=== PATIENT | female | born 1945 | race Caucasian/White ===

== ENCOUNTER → 2017-08-15 | Day surgery (SDC) | payer MEDICARE ==
[2017-08-08 15:14] LABS: BASOPHILS # (AUTO) 0.1 (0.0-0.1); BASOPHILS % 1.5 % (0.0-1.0); EOSINOPHILS # (AUTO) 0.3 (0.0-0.4); EOSINOPHILS % 3.2 % (0.0-6.0); HEMATOCRIT 35.6 % (34.2-44.1); HEMOGLOBIN 12.1 g/dL (12.0-16.0); LYMPHOCYTES # (AUTO) 1.7 (1.0-3.2); LYMPHOCYTES % 21.8 % (18.0-39.1); MEAN CORPUSCULAR HEMOGLOBIN 28.4 pg (28-32); MEAN CORPUSCULAR VOLUME 83.6 fL (81-99); MONOCYTES # (AUTO) 0.7 (0.2-0.8); MONOCYTES % 8.7 % (4.4-11.3); NEUTROPHILS % 64.4 % (38.7-80.0); PLATELET COUNT 391 x10e3/uL (140-360); RED BLOOD COUNT 4.26 x10e6/uL (3.6-5.1); RED CELL DISTRIBUTION WIDTH 15.5 % (11.7-14.4)
--- NOTE | 2017-08-08 15:22 | Diagnostic Imaging Report ---
PROCEDURE: Frontal and lateral views of the chest. COMPARISON: None. INDICATIONS: PRE-OPERATIVE CHEST X-RAY FOR CYSTOSCOPY FINDINGS: Lines/tubes: None. Lungs: The lungs are well inflated and clear. There is no evidence of pneumonia or pulmonary edema. Pleura: There is no pleural effusion or pneumothorax. Heart and mediastinum: The heart and the mediastinum are normal. Tortuous aorta with atherosclerotic calcification of the arch Bones: No acute bony abnormality. Fusion hardware noted in the lower cervical and upper thoracic spine IMPRESSION: 1. No acute cardiopulmonary abnormalities. Daniel Miranda M.D. Dictated by: Daniel Miranda M.D. on 08/08/2017 at 15:22 Electronically approved by: Daniel Miranda M.D. on 08/08/2017 at 15:22
[2017-08-08 15:31] LABS: ANION GAP 18.2 mmol/L (8-16); BLOOD UREA NITROGEN 17 mg/dL (7-26); BUN/CREATININE RATIO 21 (6-25); CALCIUM 10.1 mg/dL (8.4-10.2); CARBON DIOXIDE 28 mmol/L (22-29); CHLORIDE 92 mmol/L (98-107); EST GLOMERULAR FILTRATION RATE > 60 ML/MIN (60-); GLUCOSE 88 mg/dL (74-118); POTASSIUM 3.2 mmol/L (3.5-5.1); SODIUM 135 mmol/L (136-145)
[~2017-08-15] MED LIST: ACIDOPHILUS1 EAC3 PO; ACYCLOVIR400 MG PO; ADVAIR 100-501 EACH NS; AMLODIPINE BESY10 MG PO; AMOX TR-K CLV1 EAC2 PO; APRISO0.375 GM PO; ASPIRIN EC81 MG PO; ATORVASTATIN CA20 MG PO; BUDESONIDE EC3 MG PO; CEFTRIAXONE SOD 1 GM VIAL ONE; DEXAMETHASONE SOD PHOS INJ 4 MG/ML VIAL ONE; DIOVAN HCT 1601 EAC1 PO; FENTANYL CITRATE/PF 100MCG/2 ML INJ ONE; FLECTOR1 EACH TOP; HYDROXYCHLOROQ200 MG; LEVALBUTER0.63 MG/3 NEB; LEVOTHYROXINE25 MCG PO; LIDOCAINE HCL 2% LOCAL INJ 5 ML SDV VIAL INJ ONE; MELATONIN10 M1 PO; MIDAZOLAM HCL 2 MG/2 ML VIAL ONE; MORPHINE SULFAT30 M5 PO; MS CONTIN60 MG PO; NORCO 10-325 T1 EACH PO; NORCO 5-325 TA1 EACH PO; NORCO 7.5-3251 EACH PO; NORVASC5 MG PO; OMEPRAZOLE20 MG PO; ONDANSETRON HCL INJ 2 MG/ML VIAL ONE; ORENCIA125 MG/1 M SQ; PANTOPRAZOLE SO40 MG PO; PAROXETINE HCL20 MG PO; PROAIR HFA INH8.5 GM IH; PROMETHAZINE HC25 M1 PO; PROPOFOL IV EMULSION 10 MG/ML 20 ML VIAL ONE; QUESTRAN PACKET4 GM PO; SERTRALINE HCL100 MG PO; SEVOFLURANE INHAL SOLN 250 ML PEN BTL ONE; SIMVASTATIN10 MG PO; SUMATRIPTAN SU100 MG PO; TIZANIDINE HCL4 MG PO; TYLENOL WITH C1 EACH PO; VALIUM10 MG PO
--- OUTSIDE RECORDS SUMMARY | 2017-08-15 10:31 | XMS REPORT | Clinical Summary ---
Author Author [facility] Organization [facility] Address Unknown Phone Unavailable Care Team Providers Care Roofing Contractor Name Role Phone FrancoJuan Manuel PCP Allergies Active Allergy Reactions Severity Noted Date Comments Nitrofurantoin Rash Low 02/16/2016 Monohyd/M-Cryst Current Medications Prescription Sig. Disp. Refills Start End Date Status Date HYDROcodone-acetaminophen Take 1 tablet by mouth Active (NORCO 10-325) 10-325 mg every 6 (six) hours as per tablet needed for moderate pain. DIAZEPAM (VALIUM ORAL) Take by mouth. Active Active Problems No known active problems Family History Medical History Relation Name Comments Heart disease Father Relation Name Status Comments Father Social History Tobacco Use Types Packs/Day Years Used Date Former Smoker Cigarettes 1 Comments: Quit 12 years ago Alcohol Use Drinks/Week oz/Week Comments No Sex Assigned at Date Recorded Not on file Last Filed Vital Signs Not on file Plan of Treatment Health Maintenance Due Date Last Done Comments COLONOSCOPY 1997 MAMMOGRAM 1997 ZOSTER VACCINE 2007 PNEUMOCOCCAL 2012 POLYSACCHARIDE VACCINE AGE 65 AND OVER PNEUMOCOCCAL-13 2012 INFLUENZA VACCINE 01/03/2017 Implants Implanted Type Area Cad Designer Drafter Device Expiration Model / Identifier Date Serial / Lot Kit Nurostmltn Lead Tined 4 Elctrd Cardiac N/A: N/A [employer] 2019 [id number] 28 / Spaced 3mm 28cm - [id number] Pacing NEUROMODULATION / Implanted: 02/16/2016 (Quantity not Leads or [id number] on file) Electrodes or Accessorie s Neurostimulator Imp Interstim Ii Neurosurgi N/A: N/A [employer] [facility] - 04/01/2017 3058 / [id number] [facility] [id number] uriel NEUROLOGICAL [id number] Implanted: 02/16/2016 (Quantity not Implants / on file) [id number] Special Education Coordinator Pt For Sacral Nuromodltn Neurosurgi N/A: N/A [employer] [facility] - 3037 / Interstim Icon - [id number] uriel NEUROLOGICAL / Implanted: 02/16/2016 (Quantity not Implants on file) Results Not on fileafter 08/14/2016 Insurance Payer Benefit Subscriber ID Type Phone Address Plan / Group HUMANA HUMANA xxxxxxxxx HMO HMO/POS/EP O/OPEN ACCESS Home: [address] [place] [id number]
--- OUTSIDE RECORDS SUMMARY | 2017-08-15 10:31 | XMS REPORT ---
Author Author [facility] Address Unknown Phone Unavailable Care Team Providers Care Health Center Manager Name Role Phone HAKEEMROXANE Unavailable Unavailable REYNOLD MAK Unavailable Unavailable SHERIE SIGALA Unavailable Unavailable DOMENICA PHILLIPS Unavailable Unavailable Problems This patient has no known problems. Allergies, Adverse Reactions, Alerts This patient has no known allergies or adverse reactions. Medications This patient has no known medications. Results Test Description Test Time Test Comments Text Results Atomic Results Result Comments CBC WITH MANUAL DIFF *WW* 2016-09-23 06:58:00 WBC (test code=WBC) 9.3 10\S\3/uL 4.5-11.0 RBC (test code=RBC) 3.41 10\S\6/uL 3.80-5.80 HGB (test code=HBG) 9.9 g/dL 12.0-15.5 HCT (test code=HCT) 29.0 % 35.0-44.0 MCV (test code=MCV) 85.0 fL 81.0-99.0 MCH (test code=MCH) 29.0 pg 27.0-31.0 MCHC (test code=MCHC) 34.1 g/dL 32.0-36.0 RDW (test code=RDW) 15.9 % 11.5-14.5 PLT (test code=PLT) 266 10\S\3/uL 130-400 MPV (test code=MPV) 8.9 fL 9.4-12.4 NEUTROP # (test code=NE#) 6.8 10\S\3/uL 1.6-8.0 LYMPH # (test code=LY#) 1.2 10\S\3/uL 1.1-3.5 MONOCYTE # (test code=MO#) 0.7 10\S\3/uL 0.0-1.1 EOSINOPH # (test code=EO#) 0.4 10\S\3/uL 0.0-0.7 BASOPHIL # (test code=BA#) 0.1 10\S\3/uL 0.0-0.3 IG # (test code=IG#) 0.16 10\S\3/uL 0.00-0.06 NRBC # (test code=NRBC#) 0.00 10\S\3/uL 0.00-0.01 NEUTROPH % (test code=NE%) 73.1 % 35.0-73.0 LYMPH % (test code=LY%) 13.4 % 20.0-55.0 MONO % (test code=MO%) 7.2 % 2.5-10.0 EOSINOPH % (test code=EO%) 4.0 % 0.0-5.0 BASOPHIL % (test code=BA%) 0.6 % 0.0-2.0 IG % (test code=IG%) 1.7 % 0.0-0.8 NRBC% (test code=NRBC%) 0.0 % 0.0-0.2 MAN DIFF (test code=HMDIFF) MANUAL DIFFERENTIAL SEG (test code=SEG) 74 % 42-75 BAND (test code=BAND) 3 % 0-8 LYMPH (test code=LYMPH) 14 % 20-51 MONO (test code=MONO) 5 % 3-11 EOS (test code=EOS) 3 % 0-10 BASO (test code=BASO) 1 % 0-2 RBC MORPH (test code=RBCMORN) NORMAL NORMAL PLT EST (test code=PLTEST) ADEQUATE ADEQUATE PLT MORPH (test code=PLTMOR) NORMAL (1.5-3 um) NORMAL COMPREHENSIVE METABOLIC MARIN *WW*2016-09-23 06:29:00* Test Item Value Reference Range Comments GLUCOSE (test code=06D) 106 mg/dL 75-100 SODIUM (test code=01A) 135 mmol/L 136-145 POTASSIUM (test code=01B) 3.5 mmol/L 3.6-5.1 CHLORIDE (test code=04A) 100 mmol/L 98-107 CO2 (test code=02A) 28 mmol/L 22-32 ANION GAP (test code=ANG) 10.5 mmol/L BUN (test code=05D) 7 mg/dL 7-18 CREATININE (test code=03E) 0.7 mg/dL 0.4-1.1 BUN/CREA R (test code=BCR) 10 12-20 CALCIUM (test code=09D) 8.4 mg/dL 8.3-9.5 BILI TOTAL (test code=11A) 0.5 mg/dL 0.2-1.0 PROTEIN (test code=07D) 6.0 g/dL 6.4-8.2 ALBUMIN (test code=08D) 2.6 g/dL 3.5-4.8 GLOBULIN (test code=GLB) 3.4 g/dL 1.5-3.8 ALB/GLOB (test code=AGRR) 0.8 1.0-2.6 ALK PHOS (test code=35A) 75 IU/L 42-121 AST (test code=30A) 79 IU/L <=42 ALT (test code=31A) 19 IU/L <=78 CBC WITH MANUAL DIFF *WW*2016-09-22 07:12:00* Test Item Value Reference Range Comments WBC (test code=WBC) 9.4 10\S\3/uL 4.5-11.0 RBC (test code=RBC) 2.62 10\S\6/uL 3.80-5.80 HGB (test code=HBG) 7.8 g/dL 12.0-15.5 HCT (test code=HCT) 23.7 % 35.0-44.0 MCV (test code=MCV) 90.5 fL 81.0-99.0 MCH (test code=MCH) 29.8 pg 27.0-31.0 MCHC (test code=MCHC) 32.9 g/dL 32.0-36.0 RDW (test code=RDW) 14.5 % 11.5-14.5 PLT (test code=PLT) 245 10\S\3/uL 130-400 MPV (test code=MPV) 8.3 fL 9.4-12.4 NEUTROP # (test code=NE#) 6.1 10\S\3/uL 1.6-8.0 LYMPH # (test code=LY#) 1.8 10\S\3/uL 1.1-3.5 MONOCYTE # (test code=MO#) 0.9 10\S\3/uL 0.0-1.1 EOSINOPH # (test code=EO#) 0.4 10\S\3/uL 0.0-0.7 BASOPHIL # (test code=BA#) 0.1 10\S\3/uL 0.0-0.3 IG # (test code=IG#) 0.10 10\S\3/uL 0.00-0.06 NRBC # (test code=NRBC#) 0.00 10\S\3/uL 0.00-0.01 NEUTROPH % (test code=NE%) 65.2 % 35.0-73.0 LYMPH % (test code=LY%) 19.1 % 20.0-55.0 MONO % (test code=MO%) 9.8 % 2.5-10.0 EOSINOPH % (test code=EO%) 3.9 % 0.0-5.0 BASOPHIL % (test code=BA%) 0.9 % 0.0-2.0 IG % (test code=IG%) 1.1 % 0.0-0.8 NRBC% (test code=NRBC%) 0.0 % 0.0-0.2 MAN DIFF (test code=HMDIFF) MANUAL DIFFERENTIAL SEG (test code=SEG) 68 % 42-75 BAND (test code=BAND) 2 % 0-8 LYMPH (test code=LYMPH) 15 % 20-51 MONO (test code=MONO) 11 % 3-11 EOS (test code=EOS) 3 % 0-10 BASO (test code=BASO) 1 % 0-2 RBC MORPH (test code=RBCMORN) NORMAL NORMAL PLT EST (test code=PLTEST) ADEQUATE ADEQUATE PLT MORPH (test code=PLTMOR) NORMAL (1.5-3 um) NORMAL COMPREHENSIVE METABOLIC MARIN *WW*2016-09-22 07:09:00* Test Item Value Reference Range Comments GLUCOSE (test code=06D) 120 mg/dL 75-100 SODIUM (test code=01A) 133 mmol/L 136-145 POTASSIUM (test code=01B) 2.7 mmol/L 3.6-5.1 CHLORIDE (test code=04A) 98 mmol/L 98-107 CO2 (test code=02A) 27 mmol/L 22-32 ANION GAP (test code=ANG) 10.7 mmol/L BUN (test code=05D) 7 mg/dL 7-18 CREATININE (test code=03E) 0.6 mg/dL 0.4-1.1 BUN/CREA R (test code=BCR) 12 12-20 CALCIUM (test code=09D) 8.3 mg/dL 8.3-9.5 BILI TOTAL (test code=11A) 0.4 mg/dL 0.2-1.0 PROTEIN (test code=07D) 5.6 g/dL 6.4-8.2 ALBUMIN (test code=08D) 2.5 g/dL 3.5-4.8 GLOBULIN (test code=GLB) 3.1 g/dL 1.5-3.8 ALB/GLOB (test code=AGRR) 0.8 1.0-2.6 ALK PHOS (test code=35A) 68 IU/L 42-121 AST (test code=30A) 85 IU/L <=42 ALT (test code=31A) 16 IU/L <=78 BASIC METABOLIC PANEL 2016-09-21 05:43:00* Test Item Value Reference Range Comments GLUCOSE (test code=06D) 110 mg/dL 75-100 SODIUM (test code=01A) 133 mmol/L 136-145 POTASSIUM (test code=01B) 3.7 mmol/L 3.6-5.1 CHLORIDE (test code=04A) 96 mmol/L 98-107 CO2 (test code=02A) 29 mmol/L 22-32 ANION GAP (test code=ANG) 11.7 mmol/L BUN (test code=05D) 12 mg/dL 7-18 CREATININE (test code=03E) 1.0 mg/dL 0.4-1.1 BUN/CREA R (test code=BCR) 12 12-20 CALCIUM (test code=09D) 8.2 mg/dL 8.3-9.5 CBC (INCLUDES AUTOMATED DIFFERENTIAL)*[id number] 05:17:00* Test Item Value Reference Range Comments WBC (test code=WBC) 6.2 10\S\3/uL 4.5-11.0 RBC (test code=RBC) 2.91 10\S\6/uL 3.80-5.80 HGB (test code=HBG) 8.7 g/dL 12.0-15.5 HCT (test code=HCT) 26.4 % 35.0-44.0 MCV (test code=MCV) 90.7 fL 81.0-99.0 MCH (test code=MCH) 29.9 pg 27.0-31.0 MCHC (test code=MCHC) 33.0 g/dL 32.0-36.0 RDW (test code=RDW) 15.0 % 11.5-14.5 PLT (test code=PLT) 206 10\S\3/uL 130-400 MPV (test code=MPV) 9.1 fL 9.4-12.4 NEUTROP # (test code=NE#) 4.2 10\S\3/uL 1.6-8.0 LYMPH # (test code=LY#) 1.2 10\S\3/uL 1.1-3.5 MONOCYTE # (test code=MO#) 0.6 10\S\3/uL 0.0-1.1 EOSINOPH # (test code=EO#) 0.0 10\S\3/uL 0.0-0.7 BASOPHIL # (test code=BA#) 0.1 10\S\3/uL 0.0-0.3 IG # (test code=IG#) 0.06 10\S\3/uL 0.00-0.06 NRBC # (test code=NRBC#) 0.00 10\S\3/uL 0.00-0.01 NEUTROPH % (test code=NE%) 67.6 % 35.0-73.0 LYMPH % (test code=LY%) 19.8 % 20.0-55.0 MONO % (test code=MO%) 10.0 % 2.5-10.0 EOSINOPH % (test code=EO%) 0.5 % 0.0-5.0 BASOPHIL % (test code=BA%) 1.1 % 0.0-2.0 IG % (test code=IG%) 1.0 % 0.0-0.8 NRBC% (test code=NRBC%) 0.0 % 0.0-0.2 MANDIFF (test code=WMDIFF) NO NO RBC MORPH (test code=WRBCMOR) NORMAL C-ARM>1HR W IMAGES2016-09-20 13:46:01FluoroscopyLocation Code: [id number] HISTORY: Achilles tendon pathologyComments: Fluoroscopy was provided during Achilles tendon lengthening.Approximately fluoroscopy time was 1 minute 59 seconds.IMPRESSION: Fluoroscopy services provided. Please see operative report for fulldetails.BASIC METABOLIC PANEL 2016-09-20 07:33:00* Test Item Value Reference Range Comments GLUCOSE (test code=06D) 86 mg/dL 75-100 SODIUM (test code=01A) 136 mmol/L 136-145 POTASSIUM (test code=01B) 3.5 mmol/L 3.6-5.1 CHLORIDE (test code=04A) 97 mmol/L 98-107 CO2 (test code=02A) 32 mmol/L 22-32 ANION GAP (test code=ANG) 10.5 mmol/L BUN (test code=05D) 19 mg/dL 7-18 CREATININE (test code=03E) 0.9 mg/dL 0.4-1.1 BUN/CREA R (test code=BCR) 21 12-20 CALCIUM (test code=09D) 9.5 mg/dL 8.3-9.5 CHEST 2 VIEWS [place] [address] Patient Name: CLARI WALTON MR #: [id number] : 1945 Age/Sex: 72/F Req #: [id number] Adm Physician: Ordered by: ROXANE PALACIO MD Report #: [id number] Location: OR Room/Bed: Procedure: [id number] DX/CHEST 2 VIEWS Exam Date: 03/06/18 Exam Time: 1448 REPORT STATUS: Signed PROCEDURE: Frontal and lateral views of the chest. COMPARISON: None. INDICATIONS: PRE-OPERATIVE CHEST X- RAY FOR CYSTOSCOPY FINDINGS: Lines/tubes: None. Lungs: The lungs are well inflated and clear. There is no evidence of pneumonia or pulmonary edema. Pleura: There is no pleural effusion or pneumothorax. Heart and mediastinum: The heart and the mediastinum are normal. Tortuous aorta with atherosclerotic calcification of the arch Bones: No acute bony abnormality. Fusion hardware noted in the lower cervical and upper thoracic spine IMPRESSION: 1. No acute cardiopulmonary abnormalities. River Miranda M.D. Dictated by: River Miranda M.D. on 08/08/2017 at 15:22 Electronically approved by: River Miranda M.D. on 08/08/2017 at 15:22 Dictated By: RIVER MIRANDA MD 152 Transcribed By: AMANDA on 08/08/17 1522 COPY TO: ROXANE PALACIO MD US PELVIC (NON OB) WORKMAN OR F/U [place] [address] Patient Name: CLARI WALTON MR #: [id number] : 1945 Age/Sex: 71/F Req #: [id number] Adm Physician: REYNOLD MAK MD Ordered by: REYNOLD MAK MD Report #: [id number] Location: MED/SURG Room/Bed: Formerly named [facility] Procedure: [id number] US/US PELVIC (NON OB) WORKMAN OR F/U Exam Date: Exam Time: REPORT STATUS: Signed PROCEDURE: US PELVIC (NON OB) WORKMAN OR F/U COMPARISON: None. INDICATIONS: ANEMIA, UTI TECHNIQUE: Grayscale transverse and sagittal transabdominal images were obtained of the pelvis. FINDINGS: UTERUS: Status post hysterectomy. RIGHT OVARY: Nonvisualized. LEFT OVARY: Nonvisualized. A Jarvis catheter is noted within the urinary bladder. The right and left ureteral jets are identified. The urinary bladder decompressed appropriately after the catheter was unclamped. CONCLUSION: Status post hysterectomy. Unremarkable sonographic appearance of the urinary bladder. Dictated by: Emily Guerra M.D. on 2016 at 10:40 Electronically approved by: Emily Guerra M.D. on 2016 at 10:40 Dictated By: EMILY GUERRA MD 104 Transcribed By: AMANDA on 04/13/17 104 COPY TO: REYNOLD MAK MD HAND BILATERAL 3 OR MORE VIEWS [place] [address] Patient Name: CLARI WALTON MR #: [id number] : 1945 Age/Sex: 71/F Req #: [id number] Adm Physician: REYNOLD MAK MD Ordered by: REYNOLD MAK MD Report #: [id number] Location: MED/SURG Room/Bed: Formerly named [facility] Procedure: [id number] DX/HAND BILATERAL 3 OR MORE VIEWS Exam Date: Exam Time: REPORT STATUS: Signed Bilateral hand 3 - views HISTORY : Arthralgia. COMPARISON: None FINDINGS: No displaced fracture. There is mild subluxation of the bilateral first metacarpophalangeal joints with mild degenerative osteoarthrosis. IMPRESSION: Mild degenerative subluxation of the first metacarpophalangeal joint bilaterally. Signed by: Dr. Shaye Mi M.D. on 2016 5:59 PM Dictated By: ANAHI MI MD, MD 58 Transcribed By: ARNOLD on 04/10/171758 COPY TO: REYNOLD MAK MD SHOULDER COMPLETE BILATERAL [place] [address] Patient Name: CLARI WALTON MR #: [id number] : 1945 Age/Sex: 71/F Req #: [id number] Adm Physician: REYNOLD MAK MD Ordered by: REYNOLD MAK MD Report #: [id number] Location: MED/SURG Room/Bed: Formerly named [facility] Procedure: [id number] DX/SHOULDER COMPLETE BILATERAL Exam Date: 04/10/17 Exam Time: 1650 REPORT STATUS: Signed SHOULDER COMPLETE BILATERAL - 3 views HISTORY: Pain. COMPARISON: None available. FINDINGS: Bones: No acute displaced fracture. Osseous alignment is within normal limits. Joints: Mild DJD of the left AC joint. Degenerative changes of the right glenohumeral joint with osteophyte in the inferior aspect of the humeral head. Lower cervical fusion hardware partially visualized. Soft tissues: The soft tissues appear unremarkable. 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 Signed by: Dr. Shaye Mi M.D. on 04/10/2017 6:07 PM Dictated By: ANAHI MI MD, MD 06 Transcribed By : ARNOLD on 04/10/171806 COPY TO: REYNOLD MAK MD CT ABDOMEN/ PELVIS W [place] [address] Patient Name: CLARI WALTON MR #: [id number] : 1945 Age/Sex: 71/F Req #: [id number] Adm Physician: Ordered by: SHERIE SIGALA MD Report #: [id number] Location: ER Room/Bed: Procedure: [id number] CT/CT ABDOMEN/PELVIS W Exam Date: 03/30/17 Exam Time : 2157 REPORT STATUS: Signed EXAM: CT ABDOMEN AND PELVIS with IV CONTRAST DATE: 03/30/2017 8:29 PM Time stamp on Exam: 2151 hours INDICATION : Left upper quadrant pain COMPARISON: None TECHNIQUE: The abdomen and pelvis were scanned using a multidetector helical scanner. Coronal and sagittal reformations were obtained. Routine protocol performed. IV Contrast : 100 cc Isovue-370 Oral Contrast: Gastrografin CTDIvol has been reviewed. It is below the limits set by the Radiation Protocol Committee (RPC). FINDINGS: LOWER THORAX: No consolidations LIVER: Subcentimeter hypodensity near the dome that is too small to characterize, likely a cyst. BILIARY: The gallbladder is unremarkable. No ductal dilation. SPLEEN: No masses PANCREAS: No masses ADRENALS: No nodules KIDNEYS: Symmetric perfusion. No enhancing masses. No hydronephrosis. GI TRACT: No distention , wall thickening or evidence of obstruction. Nonspecific debris in the stomach, possibly a recently ingested meal. VESSELS: Mild atherosclerotic changes of the abdominal aorta without aneurysm. The portal vein is patent. PERITONEUM/RETROPERITONEUM: No free air or fluid LYMPH NODES: No lymphadenopathy REPRODUCTIVE ORGANS: The uterus is not visualized. The left ovary is not visualized. Right adnexal 2.4 cm simple cyst. BLADDER: Unremarkable SOFT TISSUES: Unremarkable BONES: No suspicious bone lesions. IMPRESSION: No CT findings to explain patient's left upper quadrant pain. Signed by: Dr. Regine Roque M.D. on 03/30/2017 10:37 PM Dictated By: REGINE ROQUE MD 36 Transcribed By: ARNOLD on 03/30/172236 COPY TO: SHERIE SIGALA MD
--- NOTE | 2017-08-17 10:32 | Operative Report ---
DATE OF PROCEDURE: August 15, 2017 PREOPERATIVE DIAGNOSIS: Recurrent urinary tract infections. POSTOPERATIVE DIAGNOSIS: Recurrent urinary tract infections. OPERATIVE PROCEDURE PERFORMED: Cystoscopy. ANESTHESIA: General anesthesia. ESTIMATED BLOOD LOSS: Minimal. INDICATIONS: Ms. Tesha Mariano is a 72-year-old woman with a history of culture-proven recurrent urinary tract infections. She has recently completed a course of antibiotics, and now presents for cystoscopy. PROCEDURE IN DETAIL: The patient was brought into the operating room and placed in the supine position. After administration of general anesthesia, was placed in the dorsal lithotomy position, and prepped and draped in the usual sterile fashion. Cystourethroscopy was performed using a 21-[place] cystoscope. The anterior and posterior urethra were noted to be normal. There were no diverticula or significant erythema noted. The bladder was entered without difficulty. Upon entrance into the bladder, there was some resolving cystitis cystica presumably from her recent urinary tract infection. The ureteral orifices were in the normal anatomic position, and produced clear efflux. There was grade 1 trabeculations noted throughout without any obvious diverticula or cellules. Her bladder capacity was greater than 500 mL. There were no mucosal lesions identified. The bladder was then drained in its entirety, and the cystoscope and sheath were removed. The patient was returned to the supine position, and anesthesia was reversed. She was transferred to her bed and taken to the postanesthesia care unit in good condition. Of note, the needle and instrument counts were correct at the conclusion of the case. Job#: [id number]
== END | disposition home or self-care (01) ==
LOC: OR 10:29
PROVIDERS: ATTEND Urology
DX: N30.80 Other cystitis without hematuria (principal); N32.89 Other specified disorders of bladder; I10 Essential (primary) hypertension; J45.909 Unspecified asthma, uncomplicated; Z01.810 Encounter for preprocedural cardiovascular examination; Z01.812 Encounter for preprocedural laboratory examination; Z01.818 Encounter for other preprocedural examination; Z68.30 Body mass index [BMI] 30.0-30.9, adult
CPT/HCPCS: 36415; 52000; 71046; 80048; 85025; 93005; J0696; J1100; J2001; J2250; J2405

== ENCOUNTER → 2017-11-27 | Outpatient (CLI) | payer MEDICARE ==
[~2017-11-27] MED LIST changes: +ALBUTEROL/IPRATROPIUM 3 ML NEB ONE; -CEFTRIAXONE SOD 1 GM VIAL ONE; -DEXAMETHASONE SOD PHOS INJ 4 MG/ML VIAL ONE; -FENTANYL CITRATE/PF 100MCG/2 ML INJ ONE; -LIDOCAINE HCL 2% LOCAL INJ 5 ML SDV VIAL INJ ONE; -MIDAZOLAM HCL 2 MG/2 ML VIAL ONE; -ONDANSETRON HCL INJ 2 MG/ML VIAL ONE; -PROPOFOL IV EMULSION 10 MG/ML 20 ML VIAL ONE; -SEVOFLURANE INHAL SOLN 250 ML PEN BTL ONE
== END ==
LOC: RESP 14:06
PROVIDERS: ATTEND Internal Medicine Critical Care Medicine
DX: R06.02 Shortness of breath (principal); R91.1 Solitary pulmonary nodule; J45.909 Unspecified asthma, uncomplicated; J30.9 Allergic rhinitis, unspecified; M06.9 Rheumatoid arthritis, unspecified
CPT/HCPCS: 94060; 94727; 94729

== ENCOUNTER → 2018-09-17 | Day surgery (SDC) | payer MEDICARE ==
[2018-09-06 18:29] LABS: BASOPHILS # (AUTO) 0.1 (0.0-0.1); BASOPHILS % 0.6 % (0.0-1.0); EOSINOPHILS % 0.3 % (0.0-6.0); HEMATOCRIT 40.8 % (34.2-44.1); LYMPHOCYTES # (AUTO) 2.3 (1.0-3.2); LYMPHOCYTES % 19.3 % (18.0-39.1); MEAN CORPUSCULAR HGB CONC 34.3 g/dL (31-35); MEAN CORPUSCULAR VOLUME 90.3 fL (81-99); MONOCYTES # (AUTO) 1.2 (0.2-0.8); MONOCYTES % 9.6 % (4.4-11.3); NEUTROPHILS # (AUTO) 8.3 (2.1-6.9); NEUTROPHILS % 68.9 % (38.7-80.0); PLATELET COUNT 444 x10e3/uL (140-360); RED BLOOD COUNT 4.52 x10e6/uL (3.6-5.1); RED CELL DISTRIBUTION WIDTH 13.2 % (11.7-14.4)
[~2018-09-17] MED LIST changes: -ALBUTEROL/IPRATROPIUM 3 ML NEB ONE; +BIOTIN2500 MCG PO; +CALCIUM PO; +DICYCLOMINE HCL20 MG PO; +FENTANYL CITRATE/PF 100MCG/2 ML INJ ONE; +HYDROCHLOROTHIA25 MG PO; +HYOSCYAMINE SULFATE 0.5 MG/ML INJ ONE; +IMITREX25 MG PO; +KETAMINE HCL INJ 50 MG/ML 10 ML VIAL ONE; +LOSARTAN POTASS25 MG PO; +MELOXICAM7.5 MG PO; +MIDAZOLAM HCL 2 MG/2 ML VIAL ONE; +MOMETASONE INH; +PROAIR HFA INH8.5 GM INH; +PROPOFOL IV EMULSION 10 MG/ML 50 ML VIAL ONE; +VITAMIN C1000 MG PO; +VITAMIN D31000 UNIT PEG; +[UNRECOGNIZED DRUG - OTHER] PO; +[UNRECOGNIZED DRUG - OTHER] TOP
--- OUTSIDE RECORDS SUMMARY | 2018-09-17 11:15 | XMS REPORT | Clinical Summary ---
Author Author [facility] Address Unknown Phone Unavailable Care Team Providers Care Whipped Topping Finisher Name Role Phone Parmjit Franco A PCP Allergies Comments Active Allergy Reactions Severity Noted Date Amoxicillin-Pot Itching 12/15/2017 Clavulanate Latex Rash Low 09/25/2017 Nitrofurantoin Rash Low 02/16/2016 Monohyd/M-Cryst Medications End Date Status Medication Sig Dispensed Refills Start Date Active ZANAFLEX 4 mg tablet Take 4 mg by 0 mouth every 6 8 (six) hours as needed. Active SYNTHROID 50 mcg tablet 50 mg. 0 8 Active FLONASE ALLERGY RELIEF 50 0 mcg/actuation nasal spray 8 Active sulfamethoxazole-trimetho 0 prim (BACTRIM DS) 800-160 8 mg per tablet Active PAXIL 10 mg tablet Take 10 mg by 0 mouth daily. 8 Active LIPITOR 20 mg tablet 0 8 Active diclofenac (VOLTAREN) 1 % 0 gel 8 Active diazePAM (VALIUM) 10 MG nightly as 0 tablet needed. 8 Active acyclovir (ZOVIRAX) 400 Take 400 mg 0 MG tablet by mouth daily. Active amLODIPine (NORVASC) 5 mg Take 5 mg by 0 tablet mouth daily. Active pantoprazole (PROTONIX) Take 40 mg by 0 40 MG EC tablet mouth daily. Active albuterol (PROAIR Inhale 2 0 HFA,PROVENTIL puffs every 6 HFA,VENTOLIN HFA) 90 (six) hours mcg/actuation inhaler as needed for wheezing. Active promethazine (PHENERGAN) Take 25 mg by 0 25 MG tablet mouth every 6 (six) hours as needed for nausea or vomiting. Active hydroxychloroquine Take 200 mg 0 (PLAQUENIL) 200 mg tablet by mouth 2 (two) times a day. Active calcium carbonate Take 600 mg 0 (CALCIUM 600) 600 mg by mouth 2 calcium (1,500 mg) tablet (two) times a day with meals. Active ascorbic acid, vitamin C, Take 1,000 mg 0 (vitamin C) 1000 MG by mouth tablet daily. Active cholecalciferol, vitamin Take 2,000 0 D3, (VITAMIN D3) 2,000 Units by unit capsule capsule mouth daily. Active multivitamin with Take 1 tablet 0 minerals tablet by mouth daily. Active valsartan-hydrochlorothia Take 1 tablet 0 zide (DIOVAN-HCT) 160-25 by mouth mg per tablet daily. Active SUMAtriptan (IMITREX) 50 Take 100 mg 0 MG tablet by mouth as needed for migraine. May repeat in 2 hours if unresolved. Do not exceed 200 mg in 24 hours. Active biotin 10,000 mcg capsule Take by mouth 0 daily. 12/15/2017 Discontinued valsartan (DIOVAN) 160 MG Take 160 mg 0 tablet by mouth daily. 12/28/2017 Discontinued HYDROcodone-acetaminophen Take 1 tablet 0 (NORCO) 5-325 mg per by mouth tablet every 6 (six) hours as needed for moderate pain. 12/15/2017 Discontinued vit B comp Take 1 tablet 0 no.4-vkhqo-G-biotin by mouth (NEPHRO-LAURA RX) 1-60-300 daily. mg-mg-mcg tablet 01/01/2018 HYDROcodone-acetaminophen Take 1 tablet 60 tablet 0 (NORCO) 10-325 mg per by mouth 8 tablet every 6 (six) hours as needed for moderate pain for up to 60 doses. Max Daily Amount: 4 tablets 01/27/2018 aspirin 81 mg chewable Chew 1 tablet 60 tablet 0 tablet (81 mg total) 8 2 (two) times a day for 30 days. 02/15/2018 HYDROcodone-acetaminophen Earliest Fill 60 tablet 0 (NORCO) 5-325 mg per Date: 8 tablet 02/01/18. 1-2 tabs by mouth every 4-6 hours as needed for pain Active Problems Problem Noted Date OA (osteoarthritis) of knee 12/26/2017 Encounters Care Team Description Date Type Specialty Ismael Lu MD History of total right knee replacement (Primary Dx); Primary osteoarthritis of right knee 02/19/2018 Office Visit Orthopedic Surgery MichaelBettina larrythia History of right knee joint replacement (Primary Dx) 02/19/2018 Orders Only Orthopedic Surgery Cheko Sagastume PA-C 02/01/2018 Orders Only Orthopedic Surgery Cheko Sagastume PA-C History of total right knee replacement (Primary Dx) 01/11/2018 Office Visit Orthopedic Surgery Rui Avalos MD 12/26/2017 Anesthesia Orthopedic Surgery Event Ismael Lu MD ARTHROPLASTY, KNEE, TOTAL 12/26/2017 Surgery Orthopedic Surgery Ismael Lu MD Arthritis of knee, right 12/26/2017 Hospital Orthopedic Surgery - Encounter 12/28/2017 Ismael Lu MD Preop examination (Primary Dx) 12/15/2017 Pre-Admit Pre-Admission Testing Testing Appointment Yanci Michael 10/16/2017 Orders Only Orthopedic Surgery Cheko Sagastume PA-C Primary osteoarthritis of right knee (Primary Dx) 10/02/2017 Office Visit Orthopedic Surgery Ismael Lu MD 09/25/2017 Pre-Admit Pre-Admission Testing Testing Appointment after 09/16/2017 Family History Medical History Relation Name Comments Heart disease Father Hypertension Mother Stroke Mother Relation Name Status Comments Father Mother Social History Date Tobacco Use Types Packs/Day Years Used Quit: 12/15/2004 Former Smoker Cigarettes 1 Smokeless Tobacco: Never Used Comments: Quit 12 years ago Alcohol Use Drinks/Week oz/Week Comments No Sex Assigned at Date Recorded Not on file Industry Job Start Date Occupation Not on file Not on file Not on file Travel End Travel History Travel Start No recent travel history available. Last Filed Vital Signs Time Taken Vital Sign Reading 12/28/2017 6:59 AM CDT Blood Pressure 120/55 12/28/2017 6:59 AM CDT Pulse 60 12/28/2017 6:59 AM CDT Temperature 35.9 C (96.6 F) 12/28/2017 6:59 AM CDT Respiratory Rate 17 12/28/2017 6:59 AM CDT Oxygen Saturation 100% - Inhaled Oxygen - Concentration 12/26/2017 9:34 AM CDT Weight 88.5 kg (195 lb 3.2 oz) 12/26/2017 9:34 AM CDT Height 144.8 cm (4' 9") 12/26/2017 9:34 AM CDT Body Mass Index 42.24 Plan of Treatment Health Maintenance Due Date Last Done Comments BREAST CANCER SCREENING 1997 COLON CANCER SCREENING 1997 SHINGLES VACCINES (#1) 1997 65+ PNEUMOCOCCAL VACCINE 2012 (1 of 2 - PCV13) PNEUMOCOCCAL 2012 POLYSACCHARIDE VACCINE AGE 65 AND OVER INFLUENZA VACCINE 01/03/2019 Implants Device Identifier Shelf Expiration Date Model / Serial / Lot Implanted Type Area Manufactur er 12/25/2019 [id number] / / [id number] Kit Nurostmltn Lead Tined 4 Elctrd Cardiac N/A: N/A [employer] Spaced 3mm 28cm - [id number] Pacing NEUROMODUL Implanted: 02/16/2016 (Quantity not Leads or ATION on file) Electrodes or Accessorie s 08/24/2027 [id number] / / [id number] Vanguard Cr Por Fem-Rt 57.5 - IPM Right: Knee BIOMET, [id number] IMPLANT INC Implanted: 12/26/2017 (Quantity not DEVICES on file) 08/09/2027 [id number] / / [id number] Biomet Regenx Sarah Tib Tray 67mm - IPM Right: Knee BIOMET, [id number] [employer]PL[employer] Implanted: 12/26/2017 (Quantity not DEVICES on file) 10/27/2022 EP [id number] / / [id number] E-Poly Vanguard Cr Tib Brng 63/67 X IPM Right: Knee BIOMET, 12 - [id number] IMPLANT INC Implanted: 12/26/2017 (Quantity not DEVICES on file) 12/09/2027 [id number] / / [id number] Stem Tib Prim Finned 40mm Ascent Knee Joint Right: Knee BIOMET INC Maxim - [id number] Implants Implanted: 12/26/2017 (Quantity not on file) 04/01/2017 [id number] / [id number] / [id number] Neurostimulator Imp Interstim Ii Neurosurgi N/A: N/A [employer] [id number] Nrechrgbl - [id number] [facility] - Implanted: 02/16/2016 (Quantity not Implants NEUROLOGIC on file) [place] 3037 / / Golf Coach Pt For Sacral Nuromodltn Neurosurgi N/A: N/A [employer] Interstim Icon - [id number] [employer] [place] - Implanted: 02/16/2016 (Quantity not Implants NEUROLOGIC on file) [place] Procedures Comments Procedure Name Priority Date/Time Associated Diagnosis XR KNEE 3 VW RIGHT Routine 02/19/2018 History of right knee 3:08 PM CDT joint replacement ZZESTIMATED GFR Routine 12/28/2017 4:00 AM CDT BASIC METABOLIC PANEL Routine 12/28/2017 4:00 AM CDT HC COMPLETE BLD COUNT Routine 12/28/2017 W/AUTO DIFF 4:00 AM CDT URINALYSIS SCREEN AND Routine 12/27/2017 MICROSCOPY, WITH REFLEX 6:00 AM CDT TO CULTURE URINE CULTURE Routine 12/27/2017 6:00 AM CDT CBC WITH PLATELET AND Routine 12/27/2017 DIFFERENTIAL 4:30 AM CDT ZZESTIMATED GFR Routine 12/27/2017 4:00 AM CDT T4, FREE Routine 12/27/2017 4:00 AM CDT THYROID STIMULATING Routine 12/27/2017 HORMONE 4:00 AM CDT PHOSPHORUS LEVEL Routine 12/27/2017 4:00 AM CDT IONIZED CALCIUM Routine 12/27/2017 4:00 AM CDT MAGNESIUM LEVEL Routine 12/27/2017 4:00 AM CDT BASIC METABOLIC PANEL Routine 12/27/2017 4:00 AM CDT ECG PRE/POST OP Routine 12/26/2017 9:33 PM CDT XR KNEE 1 OR 2 VW RIGHT Routine 12/26/2017 4:15 PM CDT POC GLUCOSE Routine 12/26/2017 3:52 PM CDT SURGICAL PATHOLOGY Routine 12/26/2017 REQUEST 3:26 PM CDT ANESTHESIA INTUBATION Routine 12/26/2017 3:09 PM CDT Procedure Note - Taryn Gonzalez Jr., CRNA - 12/26/2017 3:09 PM CDT Airway Date/Time: 12/26/2017 2:08 PM Performed by: TARYN GONZALEZ JR Authorized by: RUI AVALOS Location: [place] Difficult Airway: No Anesthesio logist: RUI AVALOS Resident/C RNA/AA: TARYN GONZALEZ JR Performed by: resident/C RNA/AA Preoxygena laisha with 100% O2: Yes C-spine Precaution s Maintained Throughout : Yes Mask Ventilatio n: Easy mask Final Airway Type: Supraglott ic airway Final LMA: Classic LMA Size: 4 Number of Attempts at Approach: 1 ARTHROPLASTY, KNEE, TOTAL 12/26/2017 Arthritis of knee, right 2:00 PM CDT Case Notes @2309 VIA EMAIL/BEHZAD NA R/S FROM 01/16 TO 12/26-TW Special Needs EXTENDED RECOVERY NEEDED BIOMET GLEN ANESTHESIA SPINAL BLOCK Routine 12/26/2017 1:26 PM CDT Procedure Note - Rui Avalos MD - 12/26/2017 1:26 PM CDT Spinal Block Performed by: RUI AVALOS Authorized by: RUI AVALOS Notes: ATTEMPTED SPINAL AT L3-4 AND L2-3, BUT UNSUCCESSF UL DUE TO LUMBAR FUSION POC GLUCOSE Routine 12/26/2017 9:32 AM CDT ZZESTIMATED GFR Routine 12/15/2017 2:39 PM CDT URINALYSIS SCREEN AND Routine 12/15/2017 Preop examination MICROSCOPY, WITH REFLEX 2:39 PM CDT TO CULTURE CBC HEMOGRAM Routine 12/15/2017 Preop examination 2:39 PM CDT HEMOGLOBIN A1C Routine 12/15/2017 Preop examination 2:39 PM CDT BASIC METABOLIC PANEL Routine 12/15/2017 Preop examination 2:39 PM CDT GRAM STAIN Routine 12/15/2017 2:39 PM CDT URINE CULTURE Routine 12/15/2017 2:39 PM CDT after 09/16/2017 Results * XR Knee 3 Vw Right (02/19/2018 3:08 PM CDT) Narrative Performed At [facility] Well fixed and aligned TKR right Otherwise, No gi or soft tissue abnormality Performing Organization Address [facility] Phone Number [facility] [address] [place] [address] * Estimated GFR (12/28/2017 4:00 AM CDT) Only the most recent of 3 results within the time period is included. GFR Non Af Amer 83 mL/min/1.[address] [facility] DEPARTMENT OF PATHOLOGY AND GENOMIC MEDICINE GFR Af Amer >90 mL/min/1.[address] [facility] OF Comment: PATHOLOGY AND Chronic kidney disease: <60 GENOMIC MEDICINE mL/min/1.73m2 Kidney failure: <15 mL/min/1.73m2 The estimated GFR is calculated from the IDMS-traceable Modification of Diet in Renal Disease Equation. The accuracy of the calculation is poor when the creatinine is normal. Calculated values >90 mL/min/1.73m2 are not reported. This equation has not been validated in children (<18 years), women, the elderly (>70 years), or ethnic groups other than Caucasians and Americans. Specimen Plasma specimen Performing Organization Address City/[facility] Phone Number [facility] DEPARTMENT OF [address] [place] [address] PATHOLOGY AND GENOMIC MEDICINE * CBC with platelet and differential (12/28/2017 4:00 AM CDT) Only the most recent of 2 results within the time period is included. WBC 10.24 4.50 - 11.00 k/uL [facility] DEPARTMENT OF PATHOLOGY AND GENOMIC MEDICINE RBC 2.96 (L) 4.20 - 5.50 m/uL [facility] DEPARTMENT OF PATHOLOGY AND GENOMIC MEDICINE HGB 8.9 (L) 12.0 - 16.0 g/dL [facility] DEPARTMENT OF PATHOLOGY AND GENOMIC MEDICINE HCT 26.7 (L) 37.0 - 47.0 % [facility] DEPARTMENT OF PATHOLOGY AND GENOMIC MEDICINE MCV 90.2 82.0 - 100.[address] [facility] DEPARTMENT OF PATHOLOGY AND GENOMIC MEDICINE MCH 30.1 27.0 - 34.[address] [facility] DEPARTMENT OF PATHOLOGY AND GENOMIC MEDICINE MCHC 33.3 31.0 - 37.0 g/dL [facility] DEPARTMENT OF PATHOLOGY AND GENOMIC MEDICINE RDW - SD 45.1 37.0 - 55.[address] [facility] DEPARTMENT OF PATHOLOGY AND GENOMIC MEDICINE MPV 8.5 (L) 8.8 - 13.[address] [facility] DEPARTMENT OF PATHOLOGY AND GENOMIC MEDICINE Platelet count 310 150 - 400 k/uL [facility] DEPARTMENT OF PATHOLOGY AND GENOMIC MEDICINE Nucleated RBC 0.00 /[address] [facility] DEPARTMENT OF PATHOLOGY AND GENOMIC MEDICINE Neutrophils 64.3 39.0 - 69.0 % [facility] DEPARTMENT OF PATHOLOGY AND GENOMIC MEDICINE Lymphocytes 20.1 (L) 25.0 - 45.0 % [facility] DEPARTMENT OF PATHOLOGY AND GENOMIC MEDICINE Monocytes 12.7 (H) 0.0 - 10.0 % [facility] DEPARTMENT OF PATHOLOGY AND GENOMIC MEDICINE Eosinophils 1.4 0.0 - 5.0 % [facility] DEPARTMENT OF PATHOLOGY AND GENOMIC MEDICINE Basophils 0.7 0.0 - 1.0 % [facility] DEPARTMENT OF PATHOLOGY AND GENOMIC MEDICINE Immature granulocytes 0.8Comment: "Immature 0.0 - 1.0 % [facility] DE[facility]MENT OF granulocytes" (promyelocytes, PATHOLOGY AND myelocytes, metamyelocytes) [facility] Specimen Blood Performing Organization Address City/State/Zipcode Phone Number [facility] DEPARTMENT OF [address] [place] [address] PATHOLOGY AND GENOMIC MEDICINE * Basic metabolic panel (12/28/2017 4:00 AM CDT) Only the most recent of 3 results within the time period is included. Sodium 128 (L) 135 - 148 mEq/L [facility] DEPARTMENT OF PATHOLOGY AND GENOMIC MEDICINE Potassium 4.0 3.5 - 5.0 mEq/L [facility] DEPARTMENT OF PATHOLOGY AND GENOMIC MEDICINE Chloride 90 (L) 98 - 112 mEq/L [facility] DEPARTMENT OF PATHOLOGY AND GENOMIC MEDICINE CO2 24 24 - 31 mEq/L [facility] DEPARTMENT OF PATHOLOGY AND GENOMIC MEDICINE Anion gap 14@ANIO 7 - 15 mEq/L [facility] DEPARTMENT OF PATHOLOGY AND GENOMIC MEDICINE BUN 9 8 - 23 mg/dL [facility] DEPARTMENT OF PATHOLOGY AND GENOMIC MEDICINE Creatinine 0.7 0.5 - 0.9 mg/dL [facility] DEPARTMENT OF PATHOLOGY AND GENOMIC MEDICINE Glucose 113 (H) 65 - 99 mg/dL [facility] DEPARTMENT OF PATHOLOGY AND GENOMIC MEDICINE Calcium 8.3 (L) 8.8 - 10.2 mg/dL [facility] DEPARTMENT OF PATHOLOGY AND GENOMIC MEDICINE Specimen Plasma specimen Performing Organization Address City/[facility] Cent[facility]ode Phone Number [address] [address] PATHOLOGY AND [facility] MEDICINE * Urinalysis screen and microscopy, with reflex to culture (12/27/2017 6:00 AM CDT) Only the most recent of 2 results within the time period is included. Specimen site Midstream [facility] DEPARTMENT OF PATHOLOGY AND GENOMIC MEDICINE Color, UA Colorless [facility] DEPARTMENT OF PATHOLOGY AND GENOMIC MEDICINE Appearance, UA Clear [facility] DEPARTMENT OF PATHOLOGY AND GENOMIC MEDICINE Specific gravity, UA 1.004 1.001 - 1.035 [facility] DEPARTMENT OF PATHOLOGY AND GENOMIC MEDICINE pH, UA 5.0 5.0 - 8.5 [facility] DEPARTMENT OF PATHOLOGY AND GENOMIC MEDICINE Protein, UA Negative Negative [facility] DEPARTMENT OF PATHOLOGY AND GENOMIC MEDICINE Glucose, UA Negative Negative [facility] DEPARTMENT OF PATHOLOGY AND GENOMIC MEDICINE Ketones, UA Negative Negative [facility] DEPARTMENT OF PATHOLOGY AND GENOMIC MEDICINE Bilirubin, UA Negative Negative [facility] DEPARTMENT OF PATHOLOGY AND GENOMIC MEDICINE Blood, UA Negative Negative [facility] DEPARTMENT OF PATHOLOGY AND GENOMIC MEDICINE Nitrite, UA Negative Negative [facility] DEPARTMENT OF PATHOLOGY AND GENOMIC MEDICINE Urobilinogen, UA <2.0 <[address]0 [facility] DEPARTMENT OF PATHOLOGY AND GENOMIC MEDICINE Leukocyte esterase, UA Negative Negative [facility] DEPARTMENT OF PATHOLOGY AND GENOMIC MEDICINE WBC, UA None seen 0 - 4 /HPF [facility] DEPARTMENT OF PATHOLOGY AND GENOMIC MEDICINE RBC, UA None seen 0 - 5 /HPF [facility] DEPARTMENT OF PATHOLOGY AND GENOMIC MEDICINE Bacteria, UA None seen None seen [facility] DEPARTMENT OF PATHOLOGY AND GENOMIC MEDICINE Yeast, UA None seen [facility] DEPARTMENT OF PATHOLOGY AND GENOMIC MEDICINE Yeast with pseudohyphae, None seen [facility] DEPARTMENT OF PATHOLOGY AND GENOMIC MEDICINE Specimen Urine Performing Organization Address City/[facility]ode Phone Number [address] [address] PATHOLOGY AND GENOMIC MEDICINE * Urine culture (12/27/2017 6:00 AM CDT) Only the most recent of 2 results within the time period is included. Urine culture SEE COMMENTComment: [facility] DE[facility] OF Bacteriuria screen negative. PATHOLOGY AND GENOMIC MEDICINE Performing Organization Address City/[facility]ode Phone Number [facility] [address] PATHOLOGY AND GENOMIC MEDICINE * Thyroid stimulating hormone (12/27/2017 4:00 AM CDT) TSH 1.56 0.27 - 4.20 uIU/mL [facility] DEPARTMENT OF PATHOLOGY AND GENOMIC MEDICINE Specimen Plasma specimen Performing Organization Address [facility] [place] [address] PATHOLOGY AND GENOMIC MEDICINE * T4, free (12/27/2017 4:00 AM CDT) T4, free 1.2 0.9 - 1.7 ng/dL [facility] DEPARTMENT OF PATHOLOGY AND GENOMIC MEDICINE Specimen Plasma specimen Performing Organization Address [facility] [place] [address] PATHOLOGY AND GENOMIC MEDICINE * Phosphorus level (12/27/2017 4:00 AM CDT) Phosphorus 3.2 2.4 - 4.5 mg/dL [facility] DEPARTMENT OF PATHOLOGY AND GENOMIC MEDICINE Specimen Plasma specimen Performing Organization Address [facility] [place] [address] PATHOLOGY AND GENOMIC MEDICINE * Magnesium level (12/27/2017 4:00 AM CDT) Magnesium 1.9 1.6 - 2.4 mg/dL [facility] DEPARTMENT OF PATHOLOGY AND GENOMIC MEDICINE Specimen Plasma specimen Performing Organization Address [facility] [place] [address] PATHOLOGY AND GENOMIC MEDICINE * Ionized calcium (12/27/2017 4:00 AM CDT) pH SEE COMMENTComment: [facility] DE[facility]MENT OF Footnote--------- PATHOLOGY AND GENOMIC MEDICINE Ionized calcium SEE COMMENT 1.11 - 1.32 mmol/L [facility] DEPARTMENT OF Comment: PATHOLOGY AND Footnote--------- GENOMIC MEDICINE Unable to perform testing, specimen is QNS.Recollect requested for ICA (tests).SYLVAIN LOPEZ/Celestino notified by PP (tech ID) [id number]/[id number] .Credit issued. Specimen Plasma specimen Performing Organization Address [facility] Cent[facility]ode Phone Number [facility] [address] [address] PATHOLOGY AND GENOMIC MEDICINE * ECG Pre/Post Op (12/26/2017 9:33 PM CDT) Ventricular rate 76 [facility] Atrial rate 76 [facility] SD interval 182 [facility] QRSD interval 94 [facility] QT interval [facility] QTC interval [address] [facility] P axis [address] [facility] QRS axis 1 -10 [facility] T wave axis 11 [facility] EKG impression Normal sinus rhythm-Voltage [facility] criteria for left ventricular hypertrophy-Abnormal ECG-No previous ECGs available- Performing Organization Address [facility] Cent[facility]ode Phone Number [facility] [address] [place] [address] * XR Knee 1 Or 2 Vw Right (12/26/2017 4:15 PM CDT) Narrative Performed At EXAMINATION:XR KNEE 1 OR 2 VW RIGHT [facility] CLINICAL HISTORY:total knee arthoplasty COMPARISON:None. IMPRESSION: AP and lateral radiographs of the right knee are reviewed. There are recent postoperative changes from right knee arthroplasty. Hardware is intact with no immediate postoperative complication. No periprosthetic fractures are present. There is no malalignment. Skin joanne are noted anteriorly. There is expected soft tissue swelling with subcutaneous gas and lipohemarthrosis. [facility]-[id number] Procedure Note Hm Interface, Radiology Results Incoming - 12/26/2017 4:40 PM CDT EXAMINATION: XR KNEE 1 OR 2 VW RIGHT CLINICAL HISTORY: total knee arthoplasty COMPARISON: None. IMPRESSION: AP and lateral radiographs of the right knee are reviewed. There are recent postoperative changes from right knee arthroplasty. Hardware is intact with no immediate postoperative complication. No periprosthetic fractures are present. There is no malalignment. Skin joanne are noted anteriorly. There is expected soft tissue swelling with subcutaneous gas and lipohemarthrosis. [facility]-[id number] Performing Organization Address [facility] Phone Number [facility] [address] [place] [address] * POC glucose (12/26/2017 3:52 PM CDT) Only the most recent of 2 results within the time period is included. POC glucose 110 (H) 65 - 99 mg/dL [facility] DEPARTMENT OF Comment: PATHOLOGY AND H Notified RN GENOMIC MEDICINE Meter ID: [id number] [employer] Helper: Aleena Mtz Performing Organization Address City/[facility]/Zipcode Phone Number [facility] [address] [address] PATHOLOGY AND GENOMIC MEDICINE * Surgical pathology request (12/26/2017 3:26 PM CDT) [facility] DEPARTMENT OF PATHOLOGY AND GENOMIC MEDICINE Surgical pathology report See link below for PDF Lab [facility] DE[facility] OF Report PATHOLOGY AND GENOMIC MEDICINE Result status This is Final Report to [facility] OF [id number] PATHOLOGY AND GENOMIC MEDICINE Performing Organization Address City/[facility]/Zipcode Phone Number [facility] [address] PATHOLOGY AND GENOMIC MEDICINE * Gram stain (12/15/2017 2:39 PM CDT) Gram stain result Few WBC's [facility] OF Many Gram negative rods PATHOLOGY AND Comment: GENOMIC MEDICINE Specimen Information Specimen Source: Urine Specimen Site: Clean catch Specimen Urine Performing Organization Address City/[facility] Phone Number [facility] [address] PATHOLOGY AND GENOMIC MEDICINE * CBC hemogram (12/15/2017 2:39 PM CDT) WBC 12.86 (H) 4.50 - 11.00 k/uL [facility] DEPARTMENT OF PATHOLOGY AND GENOMIC MEDICINE RBC 4.19 (L) 4.20 - 5.50 m/uL [facility] DEPARTMENT OF PATHOLOGY AND GENOMIC MEDICINE HGB 12.9 12.0 - 16.0 g/dL [facility] DEPARTMENT OF PATHOLOGY AND GENOMIC MEDICINE HCT 38.0 37.0 - 47.0 % [facility] DEPARTMENT OF PATHOLOGY AND GENOMIC MEDICINE MCV 90.7 82.0 - 100.[address] [facility] DEPARTMENT OF PATHOLOGY AND GENOMIC MEDICINE MCH 30.8 27.0 - 34.[address] [facility] DEPARTMENT OF PATHOLOGY AND GENOMIC MEDICINE MCHC 33.9 31.0 - 37.0 g/dL [facility] DEPARTMENT OF PATHOLOGY AND GENOMIC MEDICINE RDW - SD 46.8 37.0 - 55.[address] [facility] DEPARTMENT OF PATHOLOGY AND GENOMIC MEDICINE MPV 8.5 (L) 8.8 - 13.[address] [facility] DEPARTMENT OF PATHOLOGY AND GENOMIC MEDICINE Platelet count 445 (H) 150 - 400 k/uL [facility] DEPARTMENT OF PATHOLOGY AND GENOMIC MEDICINE Nucleated RBC 0.00 /[address] [facility] DEPARTMENT OF PATHOLOGY AND GENOMIC MEDICINE Specimen Urine Performing Organization Address City/State/Zipcode Phone Number [address] [address] PATHOLOGY AND GENOMIC MEDICINE * Hemoglobin A1c (12/15/2017 2:39 PM CDT) Hemoglobin A1C 4.8 4.0 - 5.6 % [facility] DEPARTMENT OF Comment: PATHOLOGY AND HbA1c cutoffs for diagnosing GENOMIC MEDICINE diabetes: 4.0% - 5.6%=normal 5.7% - 6.4%=increased risk for diabetes (prediabetes) >=6.5%=diabetes Goals for glycemic control (ADA 2016) < 7.0%Target for non adults with diabetes. More or less stringent targets may be appropriate for individual patients. <7.5% Target for Children and adolescents with type 1 diabetes. Specimen Urine Performing Organization Address City/State/Zipcode Phone Number [address] [address] PATHOLOGY AND GENOMIC MEDICINE after 09/16/2017 Insurance Payer Benefit Subscriber ID Type Phone Address Plan / Group HUMANA MEDICARE HUMANA xxxxxxxxx PPO MEDICARE PPO/PFFS/E [facility] [place] [address] Advance Directives Patient has advance care planning documents on file. For more information, faustino ann contact: Darrick Hsu [address] [place] [address]
--- OUTSIDE RECORDS SUMMARY | 2018-09-17 11:16 | XMS REPORT | Summary of Care ---
Author Author [facility] Address Unknown Phone Unavailable Encounter HQ Encntr_alias(FIN) [id number] Date(s): 06/21/17 - 07/20/17 [facility] [address] [place] [address]- [phone] Encounter Diagnosis Muscle weakness (generalized) (Final) - 07/25/17 Other chronic pain (Final) - Stiffness of unspecified joint, not elsewhere classified (Final) - Other abnormalities of gait and mobility (Final) - Abnormal posture (Final) - Discharge Disposition: Home or Self Care Attending Physician: Brock Gary DPM Vital Signs No data available for this section Problem List No data available for this section Allergies, Adverse Reactions, Alerts Substance Reaction Severity Status Adhesive tape Active Macrobid Active Medications No data available for this section Results No data available for this section Immunizations No data available for this section Procedures No data available for this section Social History Social History Type Response Assessment and Plan No data available for this section
--- OUTSIDE RECORDS SUMMARY | 2018-09-17 11:16 | XMS REPORT | Summary of Care ---
Author Author [facility] Address Unknown Phone Unavailable Encounter HQ Encntr_alias(FIN) [id number] Date(s): 07/24/17 - 08/22/17 [facility] [address] [place] [address]- [phone] Encounter Diagnosis Muscle weakness (generalized) (Final) - 08/28/17 Other chronic pain (Final) - Stiffness of [...]
--- OUTSIDE RECORDS SUMMARY | 2018-09-17 11:16 | XMS REPORT | Continuity of Care Document ---
Author Author [facility] Interface Address Unknown Phone Unavailable Problems Problem Status Onset Date Classification Date Reported Comments Source RAÚL KNEE,OA, LT SHOULDER,NECK PAIN Active 03/13/2018 [facility] Muscle weakness 08/29/2017 11/28/2017 [facility] LUMBAR SPINE/FOOT Active 09/03/2016 [facility] RAÚL KNEE OA Active 09/03/2016 [facility] Other chronic pain 11/28/2017 [facility] Stiffness of unspecified joint, not elsewhere classified 11/28/2017 [facility] Other abnormalities of gait and mobility 11/28/2017 [facility] Abnormal posture 11/28/2017 [facility] BACK PAIN Active [facility] BACK, RT KNEE, LEFT FOOT Active [facility] Medications Medication Details Route Status Patient Instructions Ordering Provider Order Date Source Allergies, Adverse Reactions, Alerts Substance Category Reaction Severity Reaction type Status Date Reported Comments Source Adhesive tape Assertion Propensity to adverse reactions to substance Active [facility] Macrobid Assertion Drug allergy Active [facility] Immunizations Immunization Date Given Site Status Last Updated Comments Source Results Order Name Results Value Reference Range Date Interpretation Comments Source Vital Signs Vital Sign Value Date Comments Source Encounters Location Location Details Encounter Type Encounter Number Reason For Visit Attending Provider ADM Date DC Date Status Source [facility] OP Therapy Patients [id number] Brock Gary 10/29/2015 11/28/2015 [facility] OP Therapy Patients [id number] Brock Gary 12/03/2015 01/02/2016 [facility] OP Therapy Patients [id number] Brock Gary 06/21/2017 07/21/2017 [facility] OP Therapy Patients [id number] Brock Gary 07/24/2017 08/23/2017 [facility] Procedures Procedure Code Date Perfomer Comments Source
--- OUTSIDE RECORDS SUMMARY | 2018-09-17 11:16 | XMS REPORT | Summary of Care ---
Author Author [facility] Address Unknown Phone Unavailable Encounter HQ Encntr_alias([facility]) [id number] Date(s): 12/03/15 - 01/01/16 [facility] Discharge Disposition: Home or Self Care Attending [...]
[2018-09-17 12:20] LABS: INR 0.91; PROTHROMBIN TIME 12.7 seconds (11.9-14.5)
[2018-09-17 12:21] LABS: PARTIAL THROMBOPLASTIN TIME 26.9 seconds (23.8-35.5)
[2018-09-17 16:05] VITALS: BP 167/80
[2018-09-17 16:31] LABS: WBC,FECAL (FECAL LACTOFERRIN) NEGATIVE (NEGATIVE)
--- NOTE | 2018-09-17 19:29 | Operative Report ---
DATE OF PROCEDURE: 09/17/2018 SURGEON: Jeremiah Garcia MD PROCEDURES: Esophagogastroduodenoscopy with biopsies and colonoscopy with polypectomy and biopsies. INDICATION FOR EGD: Heartburn, nausea. INDICATIONS FOR COLONOSCOPY: Surveillance colonoscopy, personal history of colon polyps, chronic diarrhea. MEDICATIONS: The patient was done under MAC, please see anesthesiologist's note. PROCEDURE IN DETAIL: With the patient in left lateral decubitus position, the flexible fiberoptic Olympus gastroscope was introduced into the esophagus under direct visualization without any difficulty. There was some patchy erythema noted in distal esophagus. The scope was then advanced with ease into the stomach traversing a small sliding hiatal hernia. Mucosa overlying the antrum and the body revealed some patchy erythema and moderate edema. Biopsies were obtained and sent to stain for H pylori. The pylorus was of normal contour and shape, it was intubated with ease and the scope was advanced all the way to the second portion of the duodenum. The scope was then withdrawn slowly, mucosa overlying the proximal second portion and duodenal bulb appeared to be within normal limits. Biopsies were obtained to rule out sprue. The scope was then withdrawn back into the stomach and retroflexed and mucosa overlying the fundus and cardia appeared to be within normal limits. The scope was then straightened out, it was subsequently withdrawn. The patient tolerated the procedure well. IMPRESSION: 1. Mild distal esophagitis. 2. Small sliding hiatal hernia. 3. Gastritis, biopsied. Biopsies sent to stain for Helicobacter pylori. 4. Rule out sprue. PLAN: Follow up histology. Increase Protonix to 40 mg one p.o. a.c. b.i.d. PROCEDURE IN DETAIL: The patient was then turned around after adequate lubrication of the anal canal, flexible fiberoptic Olympus colonoscope was inserted into the rectum with ease and advanced all the way to the cecum. Mucosa overlying the cecum appeared to be within normal limits. One polyp was snared. Two polyps were hot biopsied from the ascending colon. The transverse as well as the descending colon grossly appeared to be within normal limits. There was some patchy mild inflammatory changes noted in the sigmoid and rectum. Random biopsies were obtained. Four polyps were hot biopsied. Two polyps were snared from the sigmoid colon. Eleven polyps were hot biopsied from the rectum. The scope was then retroflexed into the distal rectum and small internal hemorrhoids were noted, none of which was actively bleeding. The scope was then straightened out, it was subsequently withdrawn. The patient tolerated the procedure well. IMPRESSION: 1. Ascending colon polyps x3, one snared and 2 hot biopsied. 2. Proctosigmoiditis, mild, random biopsies obtained. 3. Sigmoid colon polyps x6, two snared and four hot biopsied. 4. Rectal polyps x11, hot biopsied. 5. Internal hemorrhoids, none actively bleeding. A total of 20 polyps were removed from the colon. PLAN: Follow up histology. Follow up stool studies. Initiate Colestid 1 g p.o. b.i.d. The patient will need a followup colonoscopy in one year considering the large number of polyps removed. Jeremiah Garcia MD [facility]/LAMARL /[id number] cc: Jasmina Franco MD
[2018-09-18 12:09] LABS: C DIFFICILE TOXIN A&B AMP PROB NEGATIVE (NEGATIVE)
== END | disposition home or self-care (01) ==
LOC: OR 11:12
PROVIDERS: ATTEND Internal Medicine Gastroenterology
DX: K29.70 Gastritis, unspecified, without bleeding (principal); K63.5 Polyp of colon; K62.1 Rectal polyp; K63.89 Other specified diseases of intestine; K20.9 Esophagitis, unspecified; K21.9 Gastro-esophageal reflux disease without esophagitis; K58.9 Irritable bowel syndrome, unspecified; K44.9 Diaphragmatic hernia without obstruction or gangrene; K64.8 Other hemorrhoids; J45.909 Unspecified asthma, uncomplicated; I10 Essential (primary) hypertension; E78.5 Hyperlipidemia, unspecified; N39.0 Urinary tract infection, site not specified; E03.9 Hypothyroidism, unspecified; M06.9 Rheumatoid arthritis, unspecified; Z88.1 Allergy status to other antibiotic agents; Z91.040 Latex allergy status; Z01.810 Encounter for preprocedural cardiovascular examination; Z68.41 Body mass index [BMI] 40.0-44.9, adult; Z96.659 Presence of unspecified artificial knee joint; Z87.891 Personal history of nicotine dependence
CPT/HCPCS: 36415 ×2; 43239; 45380; 45384; 45385; 83630; 83993; 85025; 85610; 85730; 87045; 87177; 87328; 87493; 88305; 88312; 93005; J1980; J2250; J2704; 45378

== ENCOUNTER 2018-09-30 22:00 | Inpatient (IN) | payer MEDICARE ==
[~2018-09-30] VITALS: Ht 157.5 cm; Wt 88.6 kg
[~2018-09-30 22:00] MED LIST changes: -FENTANYL CITRATE/PF 100MCG/2 ML INJ ONE; -HYOSCYAMINE SULFATE 0.5 MG/ML INJ ONE; -KETAMINE HCL INJ 50 MG/ML 10 ML VIAL ONE; -MIDAZOLAM HCL 2 MG/2 ML VIAL ONE; -PROPOFOL IV EMULSION 10 MG/ML 50 ML VIAL ONE
--- OUTSIDE RECORDS SUMMARY | 2018-09-30 22:04 | XMS REPORT | Clinical Summary ---
Author Author [facility] Address Unknown Phone Unavailable Care Team Providers Care Typist Name Role Phone Parmjit Franco A PCP [...] vit B comp Take 1 tablet 0 no.5-ljnic-F-biotin by mouth (NEPHRO-LAURA RX) 1-60-300 daily. mg-mg-mcg [...] (Primary Dx) 10/02/2017 Office Visit Orthopedic Surgery after 09/29/2017 Family History Medical History Relation Name Comments [...] Manufactur er 12/25/2019 [id number] / / [id number] Kit Nurostmltn Lead Tined 4 Elctrd Cardiac N/A: N/A [employer]TR[employer] Spaced 3mm 28cm - [id number] Pacing NEUROMODUL Implanted: 02/16/2016 (Quantity not Leads or ATION on file) Electrodes or Accessorie s 08/24/2027 [id number] / / [id number] Vanguard Cr Por Fem-Rt 57.5 - IPM Right: Knee BIOMET, [id number] IMPLANT INC Implanted: 12/26/2017 (Quantity not DEVICES on file) 08/09/2027 [id number] / / [id number] Biomet Regenx Sarah Tib Tray 67mm - IPM Right: Knee BIOMET, [id number] IMPLANT INC Implanted: 12/26/2017 (Quantity not DEVICES on file) 10/27/2022 EP [id number] / / [id number] E-Poly Vanguard Cr Tib Brng 63/67 X IPM Right: Knee BIOMET, 12 - [id number] IMPLANT INC Implanted: 12/26/2017 (Quantity not DEVICES on file) 12/09/2027 [id number] / / [id number] Stem Tib Prim Finned 40mm Ascent Knee Joint Right: Knee BIOMET INC Maxim - [id number] Implants Implanted: 12/26/2017 (Quantity not on file) 04/01/2017 [id number] / [id number] / [id number] Neurostimulator Imp Interstim Ii Neurosurgi N/A: N/A MEDTR[employer]IC [id number] Nrechrgbl - [id number] uriel [place] - Implanted: 02/16/2016 (Quantity not Implants NEUROLOGIC on file) [place] 3037 / / Nurse Care Manager Pt For Sacral Nuromodltn Neurosurgi N/A: N/A [employer] Interstim Icon - [id number] uriel [place] - Implanted: 02/16/2016 (Quantity not [...] knee, right 2:00 PM CDT Case Notes @1914 VIA EMAIL/BEHZAD NA R/S FROM 01/16 TO [...] CULTURE Routine 12/15/2017 2:39 PM CDT after 09/29/2017 Results * XR Knee 3 Vw Right (02/19/2018 3:08 PM CDT) Narrative Performed At [facility] Well fixed and aligned TKR right Otherwise, No gi or soft tissue abnormality Performing Organization Address [facility] Phone Number [facility] [address] [place] [address] * Estimated GFR (12/28/2017 4:00 AM CDT) Only the most recent of 3 results within the time period is included. GFR Non Af Amer 83 mL/min/1.73 m2 [facility] PATHOLOGY AND GENOMIC MEDICINE GFR Af Amer >90 mL/min/1.73 m2 [facility] Comment: PATHOLOGY AND Chronic kidney [...] Americans. Specimen Plasma specimen Performing Organization Address City/[facility] Phone Number [facility] [address] [place] [address] PATHOLOGY AND GENOMIC MEDICINE * CBC with platelet and differential (12/28/2017 4:00 AM CDT) Only the most recent of 2 results within the time period is included. WBC 10.24 4.50 - 11.00 k/uL [facility] PATHOLOGY AND GENOMIC MEDICINE RBC 2.96 (L) 4.20 - 5.50 m/uL [facility] PATHOLOGY AND GENOMIC MEDICINE HGB 8.9 (L) 12.0 - 16.0 g/dL [facility] PATHOLOGY AND GENOMIC MEDICINE HCT 26.7 (L) 37.0 - 47.0 % [facility] PATHOLOGY AND GENOMIC MEDICINE MCV 90.2 82.0 - 100.0 fL [facility] PATHOLOGY AND GENOMIC MEDICINE MCH 30.1 27.0 - 34.0 pg [facility] PATHOLOGY AND GENOMIC MEDICINE MCHC 33.3 31.0 - 37.0 g/dL [facility] PATHOLOGY AND GENOMIC MEDICINE RDW - SD 45.1 37.0 - 55.0 fL [facility] PATHOLOGY AND GENOMIC MEDICINE MPV 8.5 (L) 8.8 - 13.2 fL [facility] PATHOLOGY AND GENOMIC MEDICINE Platelet count 310 150 - 400 k/uL [facility] PATHOLOGY AND GENOMIC MEDICINE Nucleated RBC 0.00 /100 WBC [facility] PATHOLOGY AND GENOMIC MEDICINE Neutrophils 64.3 39.0 - 69.0 % [facility] PATHOLOGY AND GENOMIC MEDICINE Lymphocytes 20.1 (L) 25.0 - 45.0 % [facility] PATHOLOGY AND GENOMIC MEDICINE Monocytes 12.7 (H) 0.0 - 10.0 % [facility] PATHOLOGY AND GENOMIC MEDICINE Eosinophils 1.4 0.0 - 5.0 % [facility] PATHOLOGY AND GENOMIC MEDICINE Basophils 0.7 0.0 - 1.0 % [facility] PATHOLOGY AND GENOMIC MEDICINE Immature granulocytes 0.8Comment: "Immature 0.0 - 1.0 % [facility] granulocytes" (promyelocytes, PATHOLOGY AND myelocytes, metamyelocytes) GENOMIC MEDICINE Specimen Blood Performing Organization Address City/State/Zipcode Phone Number [facility] [address] [place] [address] PATHOLOGY AND GENOMIC MEDICINE * Basic metabolic panel (12/28/2017 4:00 AM CDT) Only the most recent of 3 results within the time period is included. Sodium 128 (L) 135 - 148 mEq/L [facility] PATHOLOGY AND GENOMIC MEDICINE Potassium 4.0 3.5 - 5.0 mEq/L [facility] PATHOLOGY AND GENOMIC MEDICINE Chloride 90 (L) 98 - 112 mEq/L [facility] PATHOLOGY AND GENOMIC MEDICINE CO2 24 24 - 31 mEq/L [facility] PATHOLOGY AND GENOMIC MEDICINE Anion gap 14@ANIO 7 - 15 mEq/L [facility] PATHOLOGY AND GENOMIC MEDICINE BUN 9 8 - 23 mg/dL [facility] PATHOLOGY AND GENOMIC MEDICINE Creatinine 0.7 0.5 - 0.9 mg/dL [facility] PATHOLOGY AND GENOMIC MEDICINE Glucose 113 (H) 65 - 99 mg/dL [facility] PATHOLOGY AND GENOMIC MEDICINE Calcium 8.3 (L) 8.8 - 10.2 mg/dL [facility] PATHOLOGY AND GENOMIC MEDICINE Specimen Plasma specimen Performing Organization Address City/[facility] Phone Number [facility] [address] [address] PATHOLOGY AND GENOMIC MEDICINE * Urinalysis screen and microscopy, with reflex to culture (12/27/2017 6:00 AM CDT) Only the most recent of 2 results within the time period is included. Specimen site Midstream [facility] PATHOLOGY AND GENOMIC MEDICINE Color, UA Colorless [facility] PATHOLOGY AND GENOMIC MEDICINE Appearance, UA Clear [facility] PATHOLOGY AND GENOMIC MEDICINE Specific gravity, UA 1.004 1.001 - 1.035 [facility] PATHOLOGY AND GENOMIC MEDICINE pH, UA 5.0 5.0 - 8.5 [facility] PATHOLOGY AND GENOMIC MEDICINE Protein, UA Negative Negative [facility] PATHOLOGY AND GENOMIC MEDICINE Glucose, UA Negative Negative [facility] PATHOLOGY AND GENOMIC MEDICINE Ketones, UA Negative Negative [facility] PATHOLOGY AND GENOMIC MEDICINE Bilirubin, UA Negative Negative [facility] PATHOLOGY AND GENOMIC MEDICINE Blood, UA Negative Negative [facility] PATHOLOGY AND GENOMIC MEDICINE Nitrite, UA Negative Negative [facility] PATHOLOGY AND GENOMIC MEDICINE Urobilinogen, UA <2.0 <2.0 [facility] PATHOLOGY AND GENOMIC MEDICINE Leukocyte esterase, UA Negative Negative [facility] PATHOLOGY AND GENOMIC MEDICINE WBC, UA None seen 0 - 4 /HPF [facility] PATHOLOGY AND GENOMIC MEDICINE RBC, UA None seen 0 - 5 /HPF [facility] PATHOLOGY AND GENOMIC MEDICINE Bacteria, UA None seen None seen [facility] PATHOLOGY AND GENOMIC MEDICINE Yeast, UA None seen [facility] PATHOLOGY AND GENOMIC MEDICINE Yeast with pseudohyphae, None seen [facility] PATHOLOGY AND GENOMIC MEDICINE Specimen Urine Performing Organization Address City/[facility]/Zipcode Phone Number [facility] [address] [address] PATHOLOGY AND GENOMIC MEDICINE * Urine culture (12/27/2017 6:00 AM CDT) Only the most recent of 2 results within the time period is included. Urine culture SEE COMMENTComment: [facility] Bacteriuria screen negative. PATHOLOGY AND GENOMIC MEDICINE Performing Organization Address City/[facility]/Zipcode Phone Number [address] [address] PATHOLOGY AND GENOMIC MEDICINE * Thyroid stimulating hormone (12/27/2017 4:00 AM CDT) TSH 1.56 0.27 - 4.20 uIU/mL [facility] PATHOLOGY AND GENOMIC MEDICINE Specimen Plasma specimen Performing Organization Address City/[facility] [place] [address] PATHOLOGY AND GENOMIC MEDICINE * T4, free (12/27/2017 4:00 AM CDT) T4, free 1.2 0.9 - 1.7 ng/dL [facility] PATHOLOGY AND GENOMIC MEDICINE Specimen Plasma specimen Performing Organization Address [facility] [place] [address] PATHOLOGY AND GENOMIC MEDICINE * Phosphorus level (12/27/2017 4:00 AM CDT) Phosphorus 3.2 2.4 - 4.5 mg/dL [facility] PATHOLOGY AND GENOMIC MEDICINE Specimen Plasma specimen Performing Organization Address [facility] [address] PATHOLOGY AND GENOMIC MEDICINE * Magnesium level (12/27/2017 4:00 AM CDT) Magnesium 1.9 1.6 - 2.4 mg/dL [facility] PATHOLOGY AND GENOMIC MEDICINE Specimen Plasma specimen Performing Organization Address [facility] [address] PATHOLOGY AND GENOMIC MEDICINE * Ionized calcium (12/27/2017 4:00 AM CDT) pH SEE COMMENTComment: [facility] Footnote--------- PATHOLOGY AND GENOMIC MEDICINE Ionized calcium SEE COMMENT 1.11 - 1.32 mmol/L [facility] Comment: PATHOLOGY AND Footnote--------- GENOMIC MEDICINE Unable to perform testing, specimen is QNS.Recollect requested for ICA (tests).SYLVAIN LOPEZ/Celestino notified by PP (tech ID) [email or web address] .Credit issued. Specimen Plasma specimen Performing Organization Address [facility] [place] [address] PATHOLOGY AND GENOMIC MEDICINE * ECG Pre/Post Op (12/26/2017 9:33 PM CDT) Ventricular rate 76 [facility] Atrial rate 76 [facility] IN interval 182 [facility] QRSD interval 94 [facility] QT interval 386 [facility] QTC interval 434 [facility] P axis 1 22 [facility] QRS axis 1 -10 [facility] T wave axis 11 [facility] EKG impression Normal sinus rhythm-Voltage [facility] criteria for left ventricular hypertrophy-Abnormal ECG-No previous ECGs available- Performing Organization Address [facility] Phone Number [facility] [address] [place] [address] * XR Knee 1 Or 2 Vw [...] tissue swelling with subcutaneous gas and lipohemarthrosis. [facility]-[id number] Procedure Note Hm Interface, Radiology Results Incoming [...] tissue swelling with subcutaneous gas and lipohemarthrosis. [facility]-[id number] Performing Organization Address [facility] Phone Number [facility] [address] [place] [address] * POC glucose (12/26/2017 3:52 PM CDT) Only the most recent of 2 results within the time period is included. POC glucose 110 (H) 65 - 99 mg/dL [facility] Comment: PATHOLOGY AND [facility] Notified RN [employer] MEDICINE Meter ID: [id number] Medical Lab Technologist: Aleena Mtz Performing Organization Address City/[facility]/Zipcode Phone Number [facility] [address] [place] [address] PATHOLOGY AND GENOMIC MEDICINE * Surgical pathology request (12/26/2017 3:26 PM CDT) [facility] PATHOLOGY AND GENOMIC MEDICINE Surgical pathology report See link below for PDF Lab [facility] Report PATHOLOGY AND GENOMIC MEDICINE Result status This is Final Report to [facility] [id number] PATHOLOGY AND GENOMIC MEDICINE Performing Organization Address City/[facility]/Zipcode Phone Number [facility] [address] [place] [address] PATHOLOGY AND GENOMIC MEDICINE * Gram stain (12/15/2017 2:39 PM CDT) Gram stain result Few WBC's [facility] Many Gram negative rods PATHOLOGY AND Comment: GENOMIC MEDICINE Specimen Information Specimen Source: Urine Specimen Site: Clean catch Specimen Urine Performing Organization Address [facility] Phone Number [facility] [address] [place] [address] PATHOLOGY AND GENOMIC MEDICINE * CBC hemogram (12/15/2017 2:39 PM CDT) WBC 12.86 (H) 4.50 - 11.00 k/uL [facility] PATHOLOGY AND GENOMIC MEDICINE RBC 4.19 (L) 4.20 - 5.50 m/uL [facility] PATHOLOGY AND GENOMIC MEDICINE HGB 12.9 12.0 - 16.0 g/dL [facility] PATHOLOGY AND GENOMIC MEDICINE HCT 38.0 37.0 - 47.0 % [facility] PATHOLOGY AND GENOMIC MEDICINE MCV 90.7 82.0 - 100.0 fL [facility] PATHOLOGY AND GENOMIC MEDICINE MCH 30.8 27.0 - 34.0 pg [facility] PATHOLOGY AND GENOMIC MEDICINE MCHC 33.9 31.0 - 37.0 g/dL [facility] PATHOLOGY AND GENOMIC MEDICINE RDW - SD 46.8 37.0 - 55.0 fL [facility] PATHOLOGY AND GENOMIC MEDICINE MPV 8.5 (L) 8.8 - 13.2 fL [facility] PATHOLOGY AND GENOMIC MEDICINE Platelet count 445 (H) 150 - 400 k/uL [facility] PATHOLOGY AND GENOMIC MEDICINE Nucleated RBC 0.00 /100 WBC [facility] PATHOLOGY AND GENOMIC MEDICINE Specimen Urine Performing Organization Address City/State/Zipcode Phone Number [facility] [address] [place] [phone] PATHOLOGY AND GENOMIC MEDICINE * Hemoglobin A1c (12/15/2017 2:39 PM CDT) Hemoglobin A1C 4.8 4.0 - 5.6 % [facility] Comment: PATHOLOGY AND HbA1c cutoffs [...] Urine Performing Organization Address City/State/Zipcode Phone Number [facility] [address] [place] [phone] PATHOLOGY AND GENOMIC MEDICINE after 09/29/2017 Insurance Payer Benefit Subscriber ID Type Phone Address Plan / Group HUMANA MEDICARE HUMANA xxxxxxxxx PPO MEDICARE PPO/PFFS/E [facility] ([place] [place] [address] Advance Directives Patient has advance care planning documents on file. For more information, faustino ann contact: Darrick Hsu [address] [place] [phone]
[2018-09-30] MEDS ORDERED: DIATRIZOATE MEGL/DIATRIZOA SOD 30 ML BTL PO ONE (23:31)
[2018-09-30] MEDS ORDERED: ONDANSETRON HCL INJ 2MG/ML 2ML 2 MG/ML VIAL IV STA (23:34)
[2018-09-30 23:38] LABS: BASOPHILS # (AUTO) 0.1 (0.0-0.1); BASOPHILS % 0.9 % (0.0-1.0); EOSINOPHILS % 0.1 % (0.0-6.0); HEMATOCRIT 36.8 % (34.2-44.1); HEMOGLOBIN 13.1 g/dL (12.0-16.0); LYMPHOCYTES % 18.1 % (18.0-39.1); MEAN CORPUSCULAR HEMOGLOBIN 30.3 pg (28-32); MEAN CORPUSCULAR HGB CONC 35.6 g/dL (31-35); MEAN CORPUSCULAR VOLUME 85.2 fL (81-99); MONOCYTES # (AUTO) 0.9 (0.2-0.8); MONOCYTES % 7.8 % (4.4-11.3); NEUTROPHILS % 71.5 % (38.7-80.0); PLATELET COUNT 429 x10e3/uL (140-360); RED BLOOD COUNT 4.32 x10e6/uL (3.6-5.1); RED CELL DISTRIBUTION WIDTH 12.9 % (11.7-14.4)
[2018-09-30 23:46] LABS: INR 0.85; PROTHROMBIN TIME 12.1 seconds (11.9-14.5)
[2018-09-30 23:47] LABS: PARTIAL THROMBOPLASTIN TIME 28.1 seconds (23.8-35.5)
[2018-10-01] VITALS (21 sets, daily range): BP systolic 95–154; BP diastolic 52–87
[2018-10-01 00:04] LABS: ALANINE AMINOTRANSFERASE 33 IU/L (0-55); ALBUMIN 4.4 g/dL (3.5-5.0); ALBUMIN/GLOBULIN RATIO 1.4 (0.8-2.0); ALKALINE PHOSPHATASE 93 IU/L (40-150); ANION GAP 17.6 mmol/L (8-16); BLOOD UREA NITROGEN 14 mg/dL (7-26); BUN/CREATININE RATIO 17 (6-25); CALCIUM 10.3 mg/dL (8.4-10.2); CARBON DIOXIDE 24 mmol/L (22-29); CHLORIDE 81 mmol/L (98-107); CREATININE, SERUM 0.84 mg/dL (0.57-1.11); EST GLOMERULAR FILTRATION RATE > 60 ML/MIN (60-); GLUCOSE 98 mg/dL (74-118); SODIUM 120 mmol/L (136-145)
[2018-10-01 00:06] LABS: POTASSIUM 2.6 mmol/L (3.5-5.1)
[2018-10-01] MEDS ORDERED: POTASSIUM CHLORIDE 20MEQ/100ML 100 ML IV STA (00:06)
[2018-10-01] MEDS ORDERED: IOPAMIDOL 370 MG/ML 200 ML INFUS..BTL INJ ONE (00:39)
[2018-10-01] MEDS ORDERED: SODIUM CHLORIDE 0.9% 50ML 50 ML ONE (00:39)
--- NOTE | 2018-10-01 01:05 | NUR ---
ASSISTED PT TO BEDSIDE COMMODE. PT HAD BM WITH BLOOD CLOTS.
[2018-10-01] MEDS: KCL 20MEQ/.9 SOD CHL 1,000 ML IV SCH ×3 (01:45→20:28)
[2018-10-01] MEDS ORDERED: DETROL LA4 MG PO (01:59)
[2018-10-01] MEDS ORDERED: MOMETASONE FURO30 ML (01:59)
--- NOTE | 2018-10-01 02:07 | Diagnostic Imaging Report ---
EXAM: CT Abdomen and Pelvis WITH contrast INDICATION: Rectal bleeding, nausea and diarrhea. Colonoscopy with polypectomy about 2 weeks ago. COMPARISON: None available in PACS at this time. TECHNIQUE: Abdomen and pelvis were scanned utilizing a multidetector helical scanner from the lung base to the pubic symphysis after administration of IV contrast. Coronal and sagittal reformations were obtained. Routine protocol was performed. Scan was performed when during portal venous phase. IV CONTRAST: 100 cc Isovue 300 ORAL CONTRAST: Gastrografin and water mixture. RADIATION DOSE: Total DLP: 750.11 mGy*cm Estimated effective dose: (DLP x 0.015 x size factor) mSv COMPLICATIONS: None FINDINGS: LINES and TUBES: None. LOWER THORAX: Unremarkable HEPATOBILIARY: 6.3 mm low-attenuation lesion in the posterior hepatic dome on image 9, most likely a tiny cyst. No biliary ductal dilation. GALLBLADDER: No radio-opaque stones or sludge. No wall thickening. SPLEEN: No splenomegaly. PANCREAS: No focal masses or ductal dilatation. ADRENALS: No adrenal nodules KIDNEYS/URETERS: Kidneys enhance symmetrically. No hydronephrosis. No cystic or solid mass lesions. No stones. GI TRACT: No abnormal distention, or evidence of bowel obstruction. Minimal diffuse wall thickening of the distal rectum may be related to underdistention, otherwise no wall thickening. Moderate volume of stool within the colon. Appendix is not visualized, status post appendectomy. PELVIC ORGANS/BLADDER: The uterus is absent. 2.1 cm cyst in the right ovary. LYMPH NODES: No lymphadenopathy. VESSELS: There is mild atherosclerotic disease in the aorta and major arterial branches. PERITONEUM / RETROPERITONEUM: No free air or fluid. BONES: Multilevel degenerative disc disease, particularly at L2-L3. Mild retrolisthesis of L2 in relation to L3. SOFT TISSUES: Unremarkable. IMPRESSION: 1. No acute abdominal pelvic abnormality. 2. Minimal nonspecific wall thickening of the distal rectum. Signed by: Dr. Shaye Limon M.D. on 10/01/2018 2:04 AM
[2018-10-01 02:23] LABS: BILIRUBIN,URINE NEGATIVE (NEGATIVE); CLARITY,URINE CLEAR (CLEAR); COLOR,URINE YELLOW (YELLOW); KETONES,URINE 2+ (NEGATIVE); LEUKOCYTE ESTERASE ,URINE NEGATIVE (NEGATIVE); NITRITE,URINE NEGATIVE (NEGATIVE); PROTEIN,URINE DIPSTICK NEGATIVE (NEGATIVE); URINE UROBILINOGEN 0.2 mg/dL (0.2 - 1)
[2018-10-01] MEDS ORDERED: COLESTIPOL HCL1 GM PO (02:25)
[2018-10-01 02:30] LABS: EPITHELIAL CELLS,URINE RARE /LPF; RBC,URINE 0-5 /HPF (0-5); WBC,URINE (MAN) 0-5 /HPF (0-5)
--- NOTE | 2018-10-01 02:52 | NUR ---
PERFORMED INCONTINENCE CARE. PT HAD BM. PT DEFECATED BRIGHT RED BLOOD CLOTS.
[2018-10-01 03:20] LABS: HEMATOCRIT 30.5 % (34.2-44.1); HEMOGLOBIN 10.9 g/dL (12.0-16.0)
--- OUTSIDE RECORDS SUMMARY | 2018-10-01 03:32 | XMS REPORT | Clinical Summary ---
Author Author [facility] Organization [facility] Address Unknown Phone Unavailable Care Team Providers Care City Letter Carrier Name Role Phone Parmjit Franco A PCP [...] vit B comp Take 1 tablet 0 no.6-yfayq-X-biotin by mouth (NEPHRO-LUARA RX) 1-60-300 daily. mg-mg-mcg tablet 01/01/2018 HYDROcodone-acetaminophen [...] KNEE, TOTAL 12/26/2017 Surgery Orthopedic Surgery Ismael uL MD Arthritis of knee, right 12/26/2017 Hospital Orthopedic Surgery - Encounter 12/28/2017 Ismael Lu MD Preop examination (Primary Dx) 12/15/2017 Pre-Admit Pre-Admission Testing Testing Appointment Yanci Michael 10/16/2017 Orders Only Orthopedic Surgery Cheko Sagastume PA-C Primary osteoarthritis of right knee (Primary Dx) 10/02/2017 Office Visit Orthopedic Surgery after 09/30/2017 Family History Medical History Relation Name Comments [...] Manufactur er 12/25/2019 [id number] / / [id number] Kit Nurostmltn Lead Tined 4 Elctrd Cardiac N/A: N/A MEDTR[employer] Spaced 3mm 28cm - [id number] Pacing NEUROMODUL Implanted: 02/16/2016 (Quantity not Leads or ATION on file) Electrodes or Accessorie s 08/24/2027 [id number] / / [id number] Vanguard Cr Por Fem-Rt 57.5 - IPM Right: Knee BIOMET, [id number] IMPLANT INC Implanted: 12/26/2017 (Quantity not DEVICES on file) 08/09/2027 [id number] / / [id number] Biomet Regenx Sarah Tib Tray 67mm - IPM Right: Knee BIOMET, [id number] IMPLANT INC Implanted: 12/26/2017 (Quantity not DEVICES on file) 10/27/2022 EP [id number] / / [id number] E-Poly Vanguard Cr Tib Brng 63/67 X IPM Right: Knee BIOMET, 12 - [id number] IMPLANT INC Implanted: 12/26/2017 (Quantity not DEVICES on file) 12/09/2027 [id number] / / [id number] Stem Tib Prim Finned 40mm Ascent Knee Joint Right: Knee BIOMET INC Maxim - [id number] Implants Implanted: 12/26/2017 (Quantity not on file) 04/01/2017 3058 / [id number] / [id number] Neurostimulator Imp Interstim Ii Neurosurgi N/A: N/A MEDTR[employer]IC 96f63o2.7mm Nrechrgbl - [id number] uriel [place] - Implanted: 02/16/2016 (Quantity not Implants NEUROLOGIC on file) [place] 3037 / / Yarn Packer Pt For Sacral Nuromodltn Neurosurgi N/A: N/A [employer] Interstim Icon - [id number] uriel [place] - Implanted: 02/16/2016 (Quantity not [...] knee, right 2:00 PM CDT Case Notes @2534 VIA EMAIL/BEHZAD NA R/S FROM 01/16 TO [...] CULTURE Routine 12/15/2017 2:39 PM CDT after 09/30/2017 Results * XR Knee 3 Vw Right (02/19/2018 3:08 PM CDT) Narrative Performed At [facility] Well fixed and aligned TKR right Otherwise, No gi or soft tissue abnormality Performing Organization Address [facility] Phone Number [facility] [address] [place] [address] * Estimated GFR (12/28/2017 4:00 AM CDT) Only the most recent of 3 results within the time period is included. GFR Non Af Amer 83 mL/min/1.73 m2 [facility] DEPARTMENT OF PATHOLOGY AND GENOMIC MEDICINE GFR Af Amer >90 mL/min/1.73 m2 [facility] DEPARTMENT OF Comment: PATHOLOGY AND Chronic [...] Americans. Specimen Plasma specimen Performing Organization Address City/[facility] Phone Number [facility] DEPARTMENT OF [address] [place] [address] PATHOLOGY AND GENOMIC MEDICINE * CBC with platelet and differential (12/28/2017 4:00 AM CDT) Only the most recent of 2 results within the time period is included. WBC 10.24 4.50 - 11.00 k/uL [facility] DEPARTMENT OF PATHOLOGY AND GENOMIC MEDICINE RBC 2.96 (L) 4.20 - 5.50 m/uL [facility] DEPARTMENT OF PATHOLOGY AND GENOMIC MEDICINE HGB 8.9 (L) 12.0 - 16.0 g/dL [facility] DEPARTMENT OF PATHOLOGY AND GENOMIC MEDICINE HCT 26.7 (L) 37.0 - 47.0 % [facility] DEPARTMENT OF PATHOLOGY AND GENOMIC MEDICINE MCV 90.2 82.0 - 100.0 fL [facility] DEPARTMENT OF PATHOLOGY AND GENOMIC MEDICINE MCH 30.1 27.0 - 34.0 pg [facility] DEPARTMENT OF PATHOLOGY AND GENOMIC MEDICINE MCHC 33.3 31.0 - 37.0 g/dL [facility] DEPARTMENT OF PATHOLOGY AND GENOMIC MEDICINE RDW - SD 45.1 37.0 - 55.0 fL [facility] DEPARTMENT OF PATHOLOGY AND GENOMIC MEDICINE MPV 8.5 (L) 8.8 - 13.2 fL [facility] DEPARTMENT OF PATHOLOGY AND GENOMIC MEDICINE Platelet count 310 150 - 400 k/uL [facility] DEPARTMENT OF PATHOLOGY AND GENOMIC MEDICINE Nucleated RBC 0.00 /100 WBC [facility] DEPARTMENT OF PATHOLOGY AND GENOMIC MEDICINE Neutrophils 64.3 39.0 - 69.0 % [facility] DEPARTMENT OF PATHOLOGY AND GENOMIC MEDICINE Lymphocytes 20.1 (L) 25.0 - 45.0 % [facility] DEPARTMENT OF PATHOLOGY AND GENOMIC MEDICINE Monocytes 12.7 (H) 0.0 - 10.0 % [facility] DEPARTMENT OF PATHOLOGY AND GENOMIC MEDICINE Eosinophils 1.4 0.0 - 5.0 % [facility] DEPARTMENT OF PATHOLOGY AND GENOMIC MEDICINE Basophils 0.7 0.0 - 1.0 % [facility] DEPARTMENT OF PATHOLOGY AND GENOMIC MEDICINE Immature granulocytes 0.8Comment: "Immature 0.0 - 1.0 % [facility] DEPARTMENT OF granulocytes" (promyelocytes, PATHOLOGY AND myelocytes, metamyelocytes) GENOMIC MEDICINE Specimen Blood Performing Organization Address City/State/Zipcode Phone Number [facility] DEPARTMENT OF [address] [place] [address] PATHOLOGY AND GENOMIC MEDICINE * Basic metabolic panel (12/28/2017 4:00 AM CDT) Only the most recent of 3 results within the time period is included. Sodium 128 (L) 135 - 148 mEq/L [facility] DEPARTMENT OF PATHOLOGY AND GENOMIC MEDICINE Potassium 4.0 3.5 - 5.0 mEq/L [facility] DEPARTMENT OF PATHOLOGY AND GENOMIC MEDICINE Chloride 90 (L) 98 - 112 mEq/L [facility] DEPARTMENT OF PATHOLOGY AND GENOMIC MEDICINE CO2 24 24 - 31 mEq/L [facility] DEPARTMENT OF PATHOLOGY AND GENOMIC MEDICINE Anion gap 14@ANIO 7 - 15 mEq/L [facility] DEPARTMENT OF PATHOLOGY AND GENOMIC MEDICINE BUN 9 8 - 23 mg/dL [facility] DEPARTMENT OF PATHOLOGY AND GENOMIC MEDICINE Creatinine 0.7 0.5 - 0.9 mg/dL [facility] DEPARTMENT OF PATHOLOGY AND GENOMIC MEDICINE Glucose 113 (H) 65 - 99 mg/dL [facility] DEPARTMENT OF PATHOLOGY AND GENOMIC MEDICINE Calcium 8.3 (L) 8.8 - 10.2 mg/dL [facility] DEPARTMENT OF PATHOLOGY AND GENOMIC MEDICINE Specimen Plasma specimen Performing Organization Address City/[facility] Phone Number [facility] DEPARTMENT [address] [address] PATHOLOGY AND GENOMIC MEDICINE * Urinalysis screen and microscopy, with reflex to culture (12/27/2017 6:00 AM CDT) Only the most recent of 2 results within the time period is included. Specimen site Midstream [facility] DEPARTMENT OF PATHOLOGY AND GENOMIC MEDICINE Color, UA Colorless [facility] DEPARTMENT OF PATHOLOGY AND GENOMIC MEDICINE Appearance, UA Clear [facility] DEPARTMENT OF PATHOLOGY AND GENOMIC MEDICINE Specific gravity, UA 1.004 1.001 - 1.035 [facility] DEPARTMENT OF PATHOLOGY AND GENOMIC MEDICINE pH, UA 5.0 5.0 - 8.5 [facility] DEPARTMENT OF PATHOLOGY AND GENOMIC MEDICINE Protein, UA Negative Negative [facility] DEPARTMENT OF PATHOLOGY AND GENOMIC MEDICINE Glucose, UA Negative Negative [facility] DEPARTMENT OF PATHOLOGY AND GENOMIC MEDICINE Ketones, UA Negative Negative [facility] DEPARTMENT OF PATHOLOGY AND GENOMIC MEDICINE Bilirubin, UA Negative Negative [facility] DEPARTMENT OF PATHOLOGY AND GENOMIC MEDICINE Blood, UA Negative Negative [facility] DEPARTMENT OF PATHOLOGY AND GENOMIC MEDICINE Nitrite, UA Negative Negative [facility] DEPARTMENT OF PATHOLOGY AND GENOMIC MEDICINE Urobilinogen, UA <2.0 <2.0 [facility] DEPARTMENT OF PATHOLOGY AND GENOMIC MEDICINE Leukocyte esterase, UA Negative Negative [facility] DEPARTMENT OF PATHOLOGY AND GENOMIC MEDICINE WBC, UA None seen 0 - 4 /HPF [facility] DEPARTMENT OF PATHOLOGY AND GENOMIC MEDICINE RBC, UA None seen 0 - 5 /HPF [facility] DEPARTMENT OF PATHOLOGY AND GENOMIC MEDICINE Bacteria, UA None seen None seen [facility] DEPARTMENT OF PATHOLOGY AND GENOMIC MEDICINE Yeast, UA None seen [facility] DEPARTMENT OF PATHOLOGY AND GENOMIC MEDICINE Yeast with pseudohyphae, None seen [facility] DEPARTMENT OF PATHOLOGY AND GENOMIC MEDICINE Specimen Urine Performing Organization Address City/[facility]/Zipcode Phone Number [facility] DEPARTMENT [address] [address] PATHOLOGY AND GENOMIC MEDICINE * Urine culture (12/27/2017 6:00 AM CDT) Only the most recent of 2 results within the time period is included. Urine culture SEE COMMENTComment: [facility] DEPARTMENT OF Bacteriuria screen negative. PATHOLOGY AND GENOMIC MEDICINE Performing Organization Address City/[facility]/Zipcode Phone Number [address] [address] PATHOLOGY AND GENOMIC MEDICINE * Thyroid stimulating hormone (12/27/2017 4:00 AM CDT) TSH 1.56 0.27 - 4.20 uIU/mL [facility] DEPARTMENT OF PATHOLOGY AND GENOMIC MEDICINE Specimen Plasma specimen Performing Organization Address City/[facility] [place] [address] PATHOLOGY AND GENOMIC MEDICINE * T4, free (12/27/2017 4:00 AM CDT) T4, free 1.2 0.9 - 1.7 ng/dL [facility] DEPARTMENT OF PATHOLOGY AND GENOMIC MEDICINE Specimen Plasma specimen Performing Organization Address [facility] Hospital[facility] [place] [address] PATHOLOGY AND GENOMIC MEDICINE * Phosphorus level (12/27/2017 4:00 AM CDT) Phosphorus 3.2 2.4 - 4.5 mg/dL [facility] DEPARTMENT OF PATHOLOGY AND GENOMIC MEDICINE Specimen Plasma specimen Performing Organization Address [facility] [place] [address] PATHOLOGY AND GENOMIC MEDICINE * Magnesium level (12/27/2017 4:00 AM CDT) Magnesium 1.9 1.6 - 2.4 mg/dL [facility] DEPARTMENT OF PATHOLOGY AND GENOMIC MEDICINE Specimen Plasma specimen Performing Organization Address [facility] [place] [address] PATHOLOGY AND GENOMIC MEDICINE * Ionized calcium (12/27/2017 4:00 AM CDT) pH SEE COMMENTComment: [facility] DEPARTMENT OF Footnote--------- PATHOLOGY AND GENOMIC MEDICINE Ionized calcium SEE COMMENT 1.11 - 1.32 mmol/L [facility] DEPARTMENT OF Comment: PATHOLOGY AND Footnote--------- GENOMIC MEDICINE Unable to perform testing, specimen is QNS.Recollect requested for ICA (tests).SYLVAIN LOPEZ/Celestino notified by PP (tech ID) at12/27/[id number] .Credit issued. Specimen Plasma specimen Performing Organization Address [facility] [place] [address] PATHOLOGY AND GENOMIC MEDICINE * ECG Pre/Post Op (12/26/2017 9:33 PM CDT) Ventricular rate 76 [facility] M[facility] Atrial rate 76 [facility] MT interval 182 [facility] QRSD interval 94 [facility] QT interval 386 [facility] QTC interval 434 [facility] P axis 1 22 [facility] QRS axis 1 -10 [facility] T wave axis 11 [facility] EKG impression Normal sinus rhythm-Voltage [facility] criteria for left ventricular hypertrophy-Abnormal ECG-No previous ECGs available- Performing Organization Address [facility] Phone Number [facility] [address] [place] [address] * XR Knee 1 Or 2 Vw [...] tissue swelling with subcutaneous gas and lipohemarthrosis. [facility]-[id number] Procedure Note Hm Interface, Radiology Results Incoming [...] tissue swelling with subcutaneous gas and lipohemarthrosis. [facility]-[id number] Performing Organization Address [facility] Phone Number [facility] [address] [place] [address] * POC glucose (12/26/2017 3:52 PM CDT) Only the most recent of 2 results within the time period is included. POC glucose 110 (H) 65 - 99 mg/dL [facility] DEPARTMENT OF Comment: PATHOLOGY AND [facility] Notified RN [employer] MEDICINE Meter ID: [id number] Tool Procurement Coordinator: Aleena Mtz Performing Organization Address City/[facility]/Zipcode Phone Number [facility] DEPARTMENT OF [address] [place] [address] PATHOLOGY AND GENOMIC MEDICINE * Surgical pathology request (12/26/2017 3:26 PM CDT) [facility] DEPARTMENT OF PATHOLOGY AND GENOMIC MEDICINE Surgical pathology report See link below for PDF Lab [facility] DEPARTMENT OF Report PATHOLOGY AND GENOMIC MEDICINE Result status This is Final Report to [facility] DEPARTMENT OF [id number] PATHOLOGY AND GENOMIC MEDICINE Performing Organization Address City/[facility]/Zipcode Phone Number [facility] DEPARTMENT OF [address] [place] [phone] PATHOLOGY AND GENOMIC MEDICINE * Gram stain (12/15/2017 2:39 PM CDT) Gram stain result Few WBC's [facility] DEPARTMENT OF Many Gram negative rods PATHOLOGY AND Comment: GENOMIC MEDICINE Specimen Information Specimen Source: Urine Specimen Site: Clean catch Specimen Urine Performing Organization Address [facility] Phone Number [facility] DEPARTMENT OF [address] [place] [address] PATHOLOGY AND GENOMIC MEDICINE * CBC hemogram (12/15/2017 2:39 PM CDT) WBC 12.86 (H) 4.50 - 11.00 k/uL [facility] DEPARTMENT OF PATHOLOGY AND GENOMIC MEDICINE RBC 4.19 (L) 4.20 - 5.50 m/uL [facility] DEPARTMENT OF PATHOLOGY AND GENOMIC MEDICINE HGB 12.9 12.0 - 16.0 g/dL [facility] DEPARTMENT OF PATHOLOGY AND GENOMIC MEDICINE HCT 38.0 37.0 - 47.0 % [facility] DEPARTMENT OF PATHOLOGY AND GENOMIC MEDICINE MCV 90.7 82.0 - 100.0 fL [facility] DEPARTMENT OF PATHOLOGY AND GENOMIC MEDICINE MCH 30.8 27.0 - 34.0 pg [facility] DEPARTMENT OF PATHOLOGY AND GENOMIC MEDICINE MCHC 33.9 31.0 - 37.0 g/dL [facility] DEPARTMENT OF PATHOLOGY AND GENOMIC MEDICINE RDW - SD 46.8 37.0 - 55.0 fL [facility] DEPARTMENT OF PATHOLOGY AND GENOMIC MEDICINE MPV 8.5 (L) 8.8 - 13.2 fL [facility] DEPARTMENT OF PATHOLOGY AND GENOMIC MEDICINE Platelet count 445 (H) 150 - 400 k/uL [facility] DEPARTMENT OF PATHOLOGY AND GENOMIC MEDICINE Nucleated RBC 0.00 /100 WBC [facility] DEPARTMENT OF PATHOLOGY AND GENOMIC MEDICINE Specimen Urine Performing Organization Address City/State/Zipcode Phone Number [facility] DEPARTMENT OF [address] [place] [phone] PATHOLOGY AND GENOMIC MEDICINE * Hemoglobin A1c (12/15/2017 2:39 PM CDT) Hemoglobin A1C 4.8 4.0 - 5.6 % [facility] DEPARTMENT OF Comment: PATHOLOGY AND HbA1c [...] Urine Performing Organization Address City/State/Zipcode Phone Number [facility] DEPARTMENT OF [address] [place] [phone] PATHOLOGY AND GENOMIC MEDICINE after 09/30/2017 Insurance Payer Benefit Subscriber ID Type Phone Address Plan / Group HUMANA MEDICARE HUMANA xxxxxxxxx PPO MEDICARE PPO/PFFS/E [facility] [place] [place] [address] Advance Directives Patient has advance care planning documents on file. For more information, faustino ann contact: Darrick Hsu [address] [place] [phone]
[2018-10-01 05:17] LABS: ALANINE AMINOTRANSFERASE 31 IU/L (0-55); ALBUMIN 3.3 g/dL (3.5-5.0); ALBUMIN/GLOBULIN RATIO 1.3 (0.8-2.0); ALKALINE PHOSPHATASE 69 IU/L (40-150); ANION GAP 13.4 mmol/L (8-16); BLOOD UREA NITROGEN 11 mg/dL (7-26); BUN/CREATININE RATIO 16 (6-25); CALCIUM 8.9 mg/dL (8.4-10.2); CARBON DIOXIDE 24 mmol/L (22-29); CHLORIDE 86 mmol/L (98-107); EST GLOMERULAR FILTRATION RATE > 60 ML/MIN (60-); GLUCOSE 90 mg/dL (74-118); POTASSIUM 3.4 mmol/L (3.5-5.1); SODIUM 120 mmol/L (136-145)
[2018-10-01 07:20] LABS: HEMOGLOBIN 10.9 g/dL (12.0-16.0)
[2018-10-01] MEDS ORDERED: FUROSEMIDE INJ 10 MG/ML 2 ML VIAL IV SCH (11:00)
[2018-10-01] MEDS ORDERED: SODIUM CHLORIDE 0.9% 250ML 250 ML IV ONE (11:00)
[2018-10-01 12:07] LABS: HEMATOCRIT 28.9 % (34.2-44.1); HEMOGLOBIN 10.4 g/dL (12.0-16.0)
[2018-10-01] MEDS: PHENAZOPYRIDINE HCL 100 MG TAB PO SCH (18:32)
[2018-10-01] MEDS ORDERED: LIDOCAINE HCL 2% LOCAL INJ 5 ML SDV VIAL INJ ONE (19:04)
[2018-10-01] MEDS ORDERED: HYOSCYAMINE SULFATE 0.5 MG/ML INJ ONE (19:04)
[2018-10-01] MEDS ORDERED: PROPOFOL IV EMULSION 10 MG/ML 20 ML VIAL ONE (19:04)
[2018-10-01] MEDS ORDERED: FENTANYL CITRATE/PF 100MCG/2 ML INJ ONE (19:55)
[2018-10-01] MEDS ORDERED: MIDAZOLAM HCL 2 MG/2 ML VIAL ONE (19:55)
[2018-10-01] MEDS ORDERED: ONDANSETRON HCL INJ 2MG/ML 2ML 2 MG/ML VIAL IV PRN (20:15)
[2018-10-01 20:27] LABS: HEMATOCRIT 36.1 % (34.2-44.1); HEMOGLOBIN 12.2 g/dL (12.0-16.0)
[2018-10-01] MEDS: TRIMETHOPRIM/SULFAMETHOXAZOLE 160-800 MG TAB PO SCH (22:02)
[2018-10-02] VITALS (18 sets, daily range): BP systolic 126–148; BP diastolic 54–72
--- NOTE | 2018-10-02 01:21 | Operative Report ---
DATE OF PROCEDURE: 10/01/2018 SURGEON: Jeremiah Garcia MD PROCEDURE: Colonoscopy with hemoclipping of the polypectomy site. INDICATIONS FOR PROCEDURE: Persistent rectal bleeding, the patient is status post colonoscopy with polypectomy on 09/17/2018. Rule out post polypectomy bleed. MEDICATION: The patient was done under MAC, please see anesthesiologist's note. PROCEDURE IN DETAIL: With the patient in left lateral decubitus position, a flexible fiberoptic Olympus colonoscope was inserted into the rectum with ease and advanced all the way to the cecum. Some retained stools were noted scattered in the colon, but there was no blood noted in the cecum, ascending, transverse, or descending colon. Some minimal blood was noted in the sigmoid colon, but no actively bleeding site was noted. The polypectomy sites that were in countered in the sigmoid and proximally appeared with my nice white, clean base without active bleeding or stigmata of recent hemorrhage. One polypectomy site in the proximal rectum had an overlying clot and that basically was hemoclipped x4 with excellent hemostasis. The rest of the polypectomy sites in the rectum had a clean white base. The scope was subsequently withdrawn and the patient tolerated the procedure well. IMPRESSION: Polypectomy site in the proximal rectum with stigmata of recent hemorrhage, hemoclipped x3 with excellent hemostasis. The patient tolerated the procedure well. PLAN: Follow H and H. Initiate full liquid diet. Jeremiah Garcia MD [facility] /[id number] cc: Jasmina Franco MD
[2018-10-02 05:22] LABS: HEMATOCRIT 31.3 % (34.2-44.1); HEMOGLOBIN 10.6 g/dL (12.0-16.0)
[2018-10-02 05:45] LABS: ANION GAP 12.5 mmol/L (8-16); BLOOD UREA NITROGEN 7 mg/dL (7-26); BUN/CREATININE RATIO 11 (6-25); CALCIUM 8.7 mg/dL (8.4-10.2); CARBON DIOXIDE 26 mmol/L (22-29); CHLORIDE 91 mmol/L (98-107); CREATININE, SERUM 0.65 mg/dL (0.57-1.11); EST GLOMERULAR FILTRATION RATE > 60 ML/MIN (60-); GLUCOSE 81 mg/dL (74-118); POTASSIUM 3.5 mmol/L (3.5-5.1); SODIUM 126 mmol/L (136-145)
[2018-10-02] MEDS: KCL 20MEQ/.9 SOD CHL 1,000 ML IV SCH ×3 (06:01→22:00)
[2018-10-02] MEDS: TRIMETHOPRIM/SULFAMETHOXAZOLE 160-800 MG TAB PO SCH ×2 (08:00→20:44)
[2018-10-02] MEDS: PHENAZOPYRIDINE HCL 100 MG TAB PO SCH ×3 (08:00→17:50)
[2018-10-02] MEDS: PANTOPRAZOLE 40 MG 10ML VIAL IV SCH (08:00)
--- NOTE | 2018-10-02 15:48 | NUR ---
RCD PT FROM ICU BY BED PT IS ALERT AND ORIENTED VITALS CHECKED PT RESTING ON BED FAMILY AT BED SIDE BED LOW AND LOCKED CALL LIGHT IN REACH
[2018-10-02 18:30] LABS: HEMATOCRIT 37.6 % (34.2-44.1)
--- NOTE | 2018-10-02 18:40 | NUR ---
PT RESTING ON BED BED SIDE REPORT GIVEN TO ONCOMING NURSE
[2018-10-03] VITALS: BP 154/69
[2018-10-03 04:00] VITALS: BP 164/68
[2018-10-03 05:17] LABS: HEMOGLOBIN 10.6 g/dL (12.0-16.0)
[2018-10-03 05:44] LABS: ANION GAP 11.4 mmol/L (8-16); BLOOD UREA NITROGEN < 5 mg/dL (7-26); CARBON DIOXIDE 21 mmol/L (22-29); CHLORIDE 100 mmol/L (98-107); CREATININE, SERUM 0.65 mg/dL (0.57-1.11); EST GLOMERULAR FILTRATION RATE > 60 ML/MIN (60-); GLUCOSE 94 mg/dL (74-118); POTASSIUM 4.4 mmol/L (3.5-5.1); SODIUM 128 mmol/L (136-145)
[2018-10-03 05:45] LABS: BUN/CREATININE RATIO 8 (6-25)
--- NOTE | 2018-10-03 06:15 | NUR ---
PATIENT IV INFILTRATED. PATIENT DOES NOT WANT ANOTHER IV. WILL INFORM DR KNOX.
--- NOTE | 2018-10-03 06:40 | NUR ---
PAGED DR YODER TO SEE IF WE CAN CHANGE MEDICATIONS PO PATIENT DOES NOT WANT IV.
[2018-10-03] MEDS: PANTOPRAZOLE 40 MG 10ML VIAL IV SCH (08:14)
--- NOTE | 2018-10-03 08:16 | NUR ---
RECEIVED CALL BACK FROM DR. Bea KNOX STATES OK TO LEAVE IV OUT. PT CAN ACTUALLY D/C HOME IF OK WITH DR. Papito KNOX.
[2018-10-03] MEDS: PHENAZOPYRIDINE HCL 100 MG TAB PO SCH (08:18)
[2018-10-03] MEDS: TRIMETHOPRIM/SULFAMETHOXAZOLE 160-800 MG TAB PO SCH (08:18)
[2018-10-03 08:29] VITALS: BP 166/88
[2018-10-03 08:30] VITALS: BP 166/88
--- NOTE | 2018-10-03 10:02 | NUR ---
RECEIVED CALL BACK FROM DR. Papito KNOX, LABS REVIEWED. STATES OK TO D/C HOME. F/U IN OFFICE.
--- NOTE | 2018-10-03 11:23 | NUR ---
CASE MANAGEMENT ASSESSMENT Bisque Brusher to bedside to discuss plan of care with patient/family. CM/SW role and care transitions discussed. Anticipated discharge plan discussed along with duration of care. CM/SW discussed patients right to make decisions in care. CM/SW work hours given. Patient lives: alone, but her friend is with her mostly all day Admit/Transfer: thru ED Hospital/ER visits since last admit: 0 POA/Emergency contact: "man friend" Ion Guardado [phone] Current/Previous Home Health: none PCP/Follow-up Care: states she will call and schedule an appointment with Dr. Garcia. was instructed by MD to follow up in 2 weeks. Current/Previous DME: [employer] Medications (referring to index hospitalization or the first time you were in the hospital) a. Were changes made in your medications when you were in the hospital on [date of index hospitalization]? n/a b. Did you understand the changes? n/a c. Were you able to obtain your new medications right away? n/a d. Were you able to take your medications like the doctor wanted you to? n/a e. Did the hospital give you an accurate, easy to understand list of medications when you left? n/a Scale of 1-10 how comfortable does patient feel with disease management in outpatient settin Other Services: [facility] Human nurse checks on her a couple times a month Employment Status: retired Areas of Concerns: anemia Referral Needs: none Education Needs: medical management IMM/RODRIGUEZ given and signed (if applicable): IMM letter delivered and explained to pt. She verbalized understanding. Signed copy placed in chart. Copy to pt. Goal for discharge: Home CM/SW left business card at the bedside with contact information. Name and number was also written on the patients whiteboard. Patient verbalized understanding of discussion. CM will follow-up with ongoing discharge and transition of care needs.
== END 2018-10-03 11:28 | disposition home or self-care (01) | DRG 920 ==
LOC: ER 22:00 → ERHOLD 10-01 03:29 → ICU 10-01 03:49 → MED/SURG2 10-02 15:49
PROC: 0W3P8ZZ Control Bleeding in Gastrointestinal Tract, Via Natural or Artificial Opening Endoscopic (ICD-10-PCS; principal; 2018-10-02)
DX: K91.840 Postprocedural hemorrhage of a digestive system organ or structure following a digestive system procedure (principal); D62 Acute posthemorrhagic anemia; I10 Essential (primary) hypertension; E78.5 Hyperlipidemia, unspecified; M06.9 Rheumatoid arthritis, unspecified; M19.90 Unspecified osteoarthritis, unspecified site; Z86.010 Personal history of colon polyps
CPT/HCPCS: 36415; 74177; 80048; 80053; 81001; 85014; 85018; 85025; 85610; 85730; 86850; 86900; 86920; 97139; 99284; J1940; J1980; J2001; J2250; J2405; J3480; J7050; P9016; P9017; Q9967

== ENCOUNTER → 2019-11-18 | Day surgery (SDC) | payer MEDICARE, OTHER ==
[~2019-11-18] MED LIST changes: +COLESTIPOL HCL1 GM PO; +DETROL LA4 MG PO; +FENTANYL CITRATE/PF 100MCG/2 ML INJ ONE; +GABAPENTIN400 MG PO; -HYDROXYCHLOROQ200 MG; +HYDROXYCHLOROQ200 MG PO; +LIDOCAINE HCL 2% LOCAL INJ 5 ML SDV VIAL INJ ONE; +MOMETASONE FURO30 ML; +ONDANSETRON2 MG/1 ML PO; +PROPOFOL IV EMULSION 10 MG/ML 20 ML VIAL ONE; +RANITIDINE HCL150 MG PO
--- NOTE | 2019-11-18 07:10 | NUR ---
SPIRITUAL CARE - Pre-Surgery Assessment: Pt in bed. Pt reported supportive attention from family and friends. Intervention: Provided pastoral presence, hospitality, and sympathetic listening. Auto Transmission Mechanic acquainted pt with availability of farm forestry and garden workers while hospitalized. Outcome: Pt expressed appreciation for visit. No need for follow up indicated at this time. JUSTINA Neil Spiritual Care Department O: [phone]
[2019-11-18 09:20] VITALS: BP 120/75
--- NOTE | 2019-11-18 12:33 | Operative Report ---
DATE OF PROCEDURE: 11/18/2019 SURGEON: Jeremiah Garcia MD PROCEDURE: Esophagogastroduodenoscopy with esophageal dilatation and biopsies. INDICATIONS FOR EGD: Dysphagia, upper abdominal pain, bloating. MEDICATIONS: The patient was done under MAC, please see anesthesiologist's note. PROCEDURE IN DETAIL: With the patient in left lateral decubitus position, a flexible fiberoptic Olympus gastroscope was introduced into the esophagus under direct visualization without any difficulty. There was some patchy erythema noted in distal esophagus. Mild stricture was noted at the GE junction that was dilated to size 52-[place] Bender. The scope was then advanced with ease into her stomach. Mucosa overlying the antrum and the body revealed some patchy erythema and low-grade to moderate edema, and biopsies were obtained and sent to stain for H pylori. The pylorus was of normal contour and shape, was intubated with ease and the scope was advanced all the way to the second portion of the duodenum. Biopsies were obtained from the proximal second portion and duodenal bulb to rule out sprue. The scope was then withdrawn back into the stomach and retroflexed and mucosa overlying the fundus and cardia appeared to be within normal limits. The scope was then straightened out, it was subsequently withdrawn. The patient tolerated the procedure well. IMPRESSION: 1. Distal esophagitis, mild. 2. Esophageal stricture, GE junction, dilated to size 52-[place] Bender. 3. Gastritis, biopsied, biopsies sent to stain for Helicobacter pylori. 4. Rule out sprue. PLAN: Follow up histology. Increase Protonix to 40 mg one p.o. a.c. b.i.d. Jeremiah Garcia MD [facility] [place] /[id number] cc: Jasmina Franco MD
== END | disposition home or self-care (01) ==
LOC: ENDO 05:30
PROVIDERS: ATTEND Internal Medicine Gastroenterology
DX: K22.2 Esophageal obstruction (principal); K29.70 Gastritis, unspecified, without bleeding; K20.9 Esophagitis, unspecified; R19.7 Diarrhea, unspecified; Z86.010 Personal history of colon polyps; E03.9 Hypothyroidism, unspecified; M06.9 Rheumatoid arthritis, unspecified; I10 Essential (primary) hypertension; Z88.0 Allergy status to penicillin; Z88.1 Allergy status to other antibiotic agents; Z91.040 Latex allergy status; Z01.810 Encounter for preprocedural cardiovascular examination; Z01.812 Encounter for preprocedural laboratory examination; Z11.59 Encounter for screening for other viral diseases; Z68.41 Body mass index [BMI] 40.0-44.9, adult
CPT/HCPCS: 43239; 43450; 87635; 93005; J2001; J2704; J3010

== ENCOUNTER → 2019-11-20 | Outpatient (CLI) | payer MEDICARE ==
[~2019-11-20] MED LIST changes: -FENTANYL CITRATE/PF 100MCG/2 ML INJ ONE; +IOPAMIDOL 370 MG/ML 200 ML INFUS..BTL INJ ONE; -LIDOCAINE HCL 2% LOCAL INJ 5 ML SDV VIAL INJ ONE; -PROPOFOL IV EMULSION 10 MG/ML 20 ML VIAL ONE; +SODIUM CHLORIDE 0.9% 50ML 50 ML ONE
[2019-11-20 10:33] LABS: BLOOD UREA NITROGEN 13 mg/dL (7-26); BUN/CREATININE RATIO 16 (6-25); CREATININE, SERUM 0.83 mg/dL (0.57-1.11); EST GLOMERULAR FILTRATION RATE > 60 ML/MIN (60-)
--- NOTE | 2019-11-20 11:33 | Diagnostic Imaging Report ---
EXAM: CT of the abdomen and pelvis with intravenous contrast HISTORY: ^[id number] ^1106 ^UPPER ABD PAIN COMPARISON: 10/01/18 TECHNIQUE: Abdomen and pelvis were scanned utilizing a multidetector helical scanner. Coronal and sagittal reformations were obtained. Scan was performed during the portal venous phase. DOSE REDUCTION: The examination was performed according to the departmental dose-optimization program, which includes automated exposure control, adjustment of the mA and/or kV according to patient size and/or use of iterative reconstruction technique. FINDINGS: LINES and TUBES: None. LOWER THORAX: Coronary calcifications. HEPATOBILIARY: Subcentimeter hepatic hypodensities are too small to characterize.. No biliary ductal dilation. GALLBLADDER: No radio-opaque stones or sludge. No wall thickening. SPLEEN: No splenomegaly. PANCREAS: No focal masses or ductal dilatation. ADRENALS: No adrenal nodules. KIDNEYS/URETERS: Kidneys enhance symmetrically. No hydronephrosis. No cystic or solid mass lesions. No stones. GI TRACT: No abnormal distention, wall thickening, or evidence of bowel obstruction. Appendix is normal. PELVIC ORGANS/BLADDER: Unremarkable. LYMPH NODES: No lymphadenopathy. VESSELS: Scattered vascular calcifications. PERITONEUM / RETROPERITONEUM: No free air or fluid. BONES: Scattered degenerative changes. Lumbar spine as process hardware. L4 on L5 grade I anterolisthesis. SOFT TISSUES: Unremarkable. IMPRESSION: No acute intra-abdominal abnormality. Signed by: Hermilo Evans MD on 11/20/2019 11:30 AM
== END ==
LOC: CT 08:57
PROVIDERS: ATTEND Internal Medicine Gastroenterology
DX: R10.10 Upper abdominal pain, unspecified (principal)
CPT/HCPCS: 36415; 74177; 82565; 84520; Q9967

== ENCOUNTER 2020-02-07 08:34 | Inpatient (IN) | payer MEDICARE ==
[~2020-02-07] VITALS: Ht 144.8 cm; Wt 94.9 kg
[~2020-02-07 08:34] MED LIST changes: -IOPAMIDOL 370 MG/ML 200 ML INFUS..BTL INJ ONE; -SODIUM CHLORIDE 0.9% 50ML 50 ML ONE
[2020-02-07] MEDS ORDERED: SODIUM CHLORIDE 0.9% 1000ML 1,000 ML IV STA (09:00)
[2020-02-07 09:33] LABS: BASOPHILS # (AUTO) 0.1 (0.0-0.1); BASOPHILS % 1.6 % (0.0-1.0); EOSINOPHILS % 0.1 % (0.0-6.0); HEMATOCRIT 33.1 % (34.2-44.1); HEMOGLOBIN 11.6 g/dL (12.0-16.0); LYMPHOCYTES # (AUTO) 1.6 (1.0-3.2); LYMPHOCYTES % 21.2 % (18.0-39.1); MEAN CORPUSCULAR HEMOGLOBIN 29.6 pg (28-32); MEAN CORPUSCULAR VOLUME 84.4 fL (81-99); MONOCYTES # (AUTO) 0.8 (0.2-0.8); MONOCYTES % 10.9 % (4.4-11.3); NEUTROPHILS % 64.4 % (38.7-80.0); PLATELET COUNT 443 x10e3/uL (140-360); RED BLOOD COUNT 3.92 x10e6/uL (3.6-5.1); RED CELL DISTRIBUTION WIDTH 12.4 % (11.7-14.4)
--- NOTE | 2020-02-07 09:38 | Diagnostic Imaging Report ---
TECHNIQUE: Frontal view of the chest. INDICATION: ^fatigue ^[id number] ^0910 COMPARISON: None DISCUSSION: Limited evaluation due to portable technique. Lines and hardware: Cervical fusion changes are noted. Heart and mediastinum: Cardiomediastinal silhouette is at the upper limits of normal for size. Pulmonary vascularity is within normal limits. Thoracic aorta is tortuous with calcifications of the aortic knob. Lungs and pleura: No focal airspace consolidation. No pleural effusion. No pneumothorax. Soft tissues and bones: No acute abnormality. IMPRESSION: Negative for acute intrathoracic process. Signed by: Herberth Her MD on 02/07/2020 9:35 AM
[2020-02-07 09:42] LABS: INR 0.92; PROTHROMBIN TIME 12.8 seconds (11.9-14.5)
[2020-02-07 09:44] LABS: PARTIAL THROMBOPLASTIN TIME 24.1 seconds (23.8-35.5)
[2020-02-07 09:56] LABS: ALBUMIN 4.8 g/dL (3.5-5.0); ALBUMIN/GLOBULIN RATIO 1.6 (0.8-2.0); ANION GAP 14.7 mmol/L (8-16); CALCIUM 9.9 mg/dL (8.4-10.2); CREATININE, SERUM 0.93 mg/dL (0.57-1.11); MAGNESIUM 2.1 MG/DL (1.3-2.1)
[2020-02-07 09:58] LABS: POTASSIUM 2.7 mmol/L (3.5-5.1)
--- NOTE | 2020-02-07 09:58 | NUR ---
Sodium 119, Potassium 2.7, Dr. Bustamante notified
[2020-02-07 10:03] LABS: BLOOD UREA NITROGEN 15 mg/dL (7-26); GLUCOSE 86 mg/dL (74-118); OSMOLALITY,SERUM 240 mOsm/kg (278-305)
[2020-02-07 10:04] LABS: SODIUM 119 mmol/L (136-145)
[2020-02-07 10:09] LABS: CREATINE KINASE MB 3.3 ng/mL (0-5.0)
[2020-02-07] MEDS ORDERED: POTASSIUM CHLORIDE 20 MEQ TAB CR PO STA (10:10)
[2020-02-07] MEDS ORDERED: KCL 20MEQ/.9 SOD CHL 1,000 ML IV ONE (10:15)
[2020-02-07 10:29] LABS: CLARITY,URINE HAZY (CLEAR); COLOR,URINE YELLOW (YELLOW)
[2020-02-07 10:30] LABS: BILIRUBIN,URINE NEGATIVE (NEGATIVE); KETONES,URINE NEGATIVE (NEGATIVE); LEUKOCYTE ESTERASE ,URINE MODERATE (NEGATIVE); NITRITE,URINE NEGATIVE (NEGATIVE); PROTEIN,URINE DIPSTICK NEGATIVE (NEGATIVE); URINE UROBILINOGEN 0.2 mg/dL (0.2 - 1)
[2020-02-07 10:31] LABS: BACTERIA,URINE MANY /HPF; EPITHELIAL CELLS,URINE FEW /LPF; MUCUS,URINE FEW (RARE)
--- NOTE | 2020-02-07 10:36 | Emergency Department Note ---
History of Present Illnes History of Present Illness Chief Complaint: General Medicine Complaints History of Present Illness This is a 74 year old female Patient in from home, saw PCP Jasmina Franco yesterday for 2 weeks of generalized fatige/low energy, her PCP called her today and said her sodium and chloride are low, go to ER. Patient is on Chlorthalidone Historian: Patient Arrival Mode: Car Heating And Refrigeration Inspector Required: No Onset (how long ago): week(s) (2) Location: generalized Quality: fatigue Radiation: Reports non-radiation Severity: moderate Onset quality: gradual Timing of current episode: constant Progression: unchanged Chronicity: new Context: Denies recent illness Relieving factors: none Exacerbating factors: none Associated symptoms: Reports other (some occasional diarrhea in past week) Past Medical/Family History Physician Review I have reviewed the patient's past medical and family history. Any updates have been documented here. Past Medical History Recent Fever: No Clinical Suspicion of Infectio: No New/Unexplained Change in Ment: No Past Medical History: Hypertension, UTI's, Anemia, Anxiety, Hyperlipedemia, Ch ronic Back Pain Other Medical History: COLITIS, RHEUMATOID ARTHRITIS Past Surgical History: Knee Replacement, Back Surgery, Orthopedic Implants Other Surgery: EGD/Colonoscopy with polyp removal Social History Smoking Cessation: Never Smoker Counseling Performed: No Alcohol Use: None Any Illegal Drug Use: No TB Exposure/Symptoms: No Physically hurt or threatened: No Family History Family history of heart diseas: No Other Last Tetanus: UNK Any Pre-Existing Lines (PICC,: No Review of Systems Review of Systems Constitutional: Reports malaise (fatigue) EENTM: Reports no symptoms Cardiovascular: Reports no symptoms Respiratory: Reports no symptoms Gastrointestinal: Reports no symptoms Genitourinary: Reports no symptoms Musculoskeletal: Reports no symptoms Integumentary: Reports no symptoms Neurological: Reports no symptoms Psychological: Reports no symptoms Endocrine: Reports no symptoms Hematological/Lymphatic: Reports no symptoms Physical Exam Related Data Allergies: Coded Allergies: Latex, Natural Rubber (Verified Allergy, Unknown, 03/29/19) amoxicillin (Verified Allergy, Unknown, rash, 03/29/19) clavulanic acid (Verified Allergy, Unknown, rash, 03/29/19) influenza virus vaccine, specific (Verified Allergy, Unknown, 03/29/19) levofloxacin (Verified Allergy, Unknown, rash, 03/29/19) nitrofurantoin (Verified Allergy, Unknown, 03/29/19) Triage Vital Signs Vital Signs Date Time Temp Pulse Resp B/P (MAP) Pulse Ox O2 Delivery O2 Flow Rate FiO2 02/07/20 08:52 98.4 62 14 126/55 100 Room Air Vital signs reviewed: Yes Physical Exam CONSTITUTIONAL Constitutional: Present well-developed, Present well-nourished, Present obese HENT HENT: Present normocephalic, Present atraumatic, Present oropharynx clear/moist, Present nose normal HENT L/R: Present left ext ear normal, Present right ext ear normal EYES Eyes: Reports PERRL, Reports conjunctivae normal NECK Neck: Present ROM normal PULMONARY Pulmonary: Present effort normal, Present breath sounds normal CARDIOVASCULAR Cardiovascular: Present regular rhythm, Present heart sounds normal, Present capillary refill normal, Present normal rate GASTROINTESTINAL Abdominal: Present soft, Present nontender, Present bowel sounds normal GENITOURINARY Genitourinary: Present exam deferred SKIN Skin: Present warm, Present dry MUSCULOSKELETAL Musculoskeletal: Present ROM normal NEUROLOGICAL Neurological: Present alert, Present oriented x 3, Present no gross motor or sensory deficits PSYCHOLOGICAL Psychological: Present mood/affect normal, Present judgement normal Results Laboratory Result Diagram: 02/07/20 0921 02/07/20 0921 Laboratory Laboratory Tests Test 02/07/20 10:01 02/07/20 09:21 White Blood Count 7.72 x10e3/uL (4.8-10.8) Red Blood Count 3.92 x10e6/uL (3.6-5.1) Hemoglobin 11.6 g/dL (12.0-16.0) Hematocrit 33.1 % (34.2-44.1) Mean Corpuscular Volume 84.4 fL (81-99) Mean Corpuscular Hemoglobin 29.6 pg (28-32) Mean Corpuscular Hemoglobin Concent 35.0 g/dL (31-35) Red Cell Distribution Width 12.4 % (11.7-14.4) Platelet Count 443 x10e3/uL (140-360) Neutrophils (%) (Auto) 64.4 % (38.7-80.0) Lymphocytes (%) (Auto) 21.2 % (18.0-39.1) Monocytes (%) (Auto) 10.9 % (4.4-11.3) Eosinophils (%) (Auto) 0.1 % (0.0-6.0) Basophils (%) (Auto) 1.6 % (0.0-1.0) Neutrophils # (Auto) 5.0 (2.1-6.9) Lymphocytes # (Auto) 1.6 (1.0-3.2) Monocytes # (Auto) 0.8 (0.2-0.8) Eosinophils # (Auto) 0.0 (0.0-0.4) Basophils # (Auto) 0.1 (0.0-0.1) Absolute Immature Granulocyte (auto 0.14 x10e3/uL (0-0.1) Prothrombin Time 12.8 seconds (11.9-14.5) Prothromb Time International Ratio 0.92 Activated Partial Thromboplast Time 24.1 seconds (23.8-35.5) Sodium Level 119 mmol/L (136-145) Potassium Level 2.7 mmol/L (3.5-5.1) Chloride Level 79 mmol/L (98-107) Carbon Dioxide Level 28 mmol/L (22-29) Anion Gap 14.7 mmol/L (8-16) Blood Urea Nitrogen 15 mg/dL (7-26) Creatinine 0.93 mg/dL (0.57-1.11) Estimat Glomerular Filtration Rate 59 ML/MIN (60-) BUN/Creatinine Ratio 16 (6-25) Glucose Level 86 mg/dL (74-118) Serum Osmolality 240 mOsm/kg (278-305) Calcium Level 9.9 mg/dL (8.4-10.2) Magnesium Level 2.1 MG/DL (1.3-2.1) Total Bilirubin 0.6 mg/dL (0.2-1.2) Aspartate Amino Transf (AST/SGOT) 32 IU/L (5-34) Alanine Aminotransferase (ALT/SGPT) 25 IU/L (0-55) Alkaline Phosphatase 126 IU/L (40-150) Creatine Kinase 295 IU/L (29-168) Creatine Kinase MB 3.30 ng/mL (0-5.0) Troponin I 0.009 ng/mL (0-0.300) Total Protein 7.8 g/dL (6.5-8.1) Albumin 4.8 g/dL (3.5-5.0) Globulin 3.0 g/dL (2.3-3.5) Albumin/Globulin Ratio 1.6 (0.8-2.0) Lab results reviewed: Yes Imaging Imaging results reviewed: Yes Impressions Procedure: [id number] DX/CHEST SINGLE (PORTABLE) Exam Date: 02/07/20 Exam Time: 909 REPORT STATUS: Signed TECHNIQUE: Frontal view of the chest. INDICATION: ^fatigue ^[id number] ^0910 COMPARISON: None DISCUSSION: Limited evaluation due to portable technique. Lines and hardware: Cervical fusion changes are noted. Heart and mediastinum: Cardiomediastinal silhouette is at the upper limits of normal for size. Pulmonary vascularity is within normal limits. Thoracic aorta is tortuous with calcifications of the aortic knob. Lungs and pleura: No focal airspace consolidation. No pleural effusion. No pneumothorax. Soft tissues and bones: No acute abnormality. IMPRESSION: Negative for acute intrathoracic process. Signed by: Herberth Her MD on 02/07/2020 9:35 AM Procedures 12 Lead ECG Interpretation ECG Interpretation : ECG: ECG 1 Heating And Refrigeration Inspector: Interpreted by ED physician Date: Feb 07, 2020 Time: 09:49 Rhythm: sinus bradycardia Rate: bradycardia BPM: 56 QRS axis: normal Conduction: intraventricular conduction delay ST segments normal: Yes T waves normal: Yes Other findings: LVH Clinical Impression: abnormal ECG Assessment & Plan Medical Decision Making MDM fatigue, reported hypochloremic hyponatremia, pt on Chlorthalidone, also having some ocass diarrhea - check cbc, chem's, ecg, cardiac enzymes, ua/cx, ur/serum osm and ur sodium - eval for dehydration, electrolyte abnl such as hypokalemia, renal insuff, SIADH, UTI Reassessment Reassessment ADMIT TO DR SIMON Assessment & Plan Final Impression: (1) Hyponatremia (2) Hypokalemia (3) UTI (urinary tract infection) Depart Disposition: ADMITTED Last Vital Signs Date Time Temp Pulse Resp B/P (MAP) Pulse Ox O2 Delivery O2 Flow Rate FiO2 02/07/20 09:30 98.1 82 18 100 Room Air Home Meds Reported Medications Ranitidine Hcl (RANITIDINE HCL) 150 Mg Tablet, 300 MG PO HS 05/21/19 Ondansetron Hcl (ONDANSETRON HCL) 2 Mg/1 Ml Vial, 8 MG PO PRN, VIAL 05/21/19 Gabapentin (GABAPENTIN) 400 Mg Capsule, 600 MG PO DAILY, #30 CAP 05/21/19 Colestipol Hcl,Micronized (COLESTIPOL HCL) 1 Gm Tablet, 1 GM PO BID, #30 TAB 10/01/18 [Multivitamin Ultra] No Conflict Check, 1 TAB PO DAILY 09/11/18 [Calcium] No Conflict Check, 600 MG PO DAILY 09/11/18 Biotin (BIOTIN) 2,500 Mcg Capsule, 07650 MCG PO DAILY 09/11/18 Dicyclomine Hcl (DICYCLOMINE HCL) 20 Mg Tablet, 20 MG PO PRN, TAB 09/11/18 Sumatriptan Succinate (IMITREX) 25 Mg Tablet, 100 MG PO PRN PRN for MIGRAINE 09/11/18 [Valtarian Gel] No Conflict Check, 100 GM TOP DAILY 09/11/18 Albuterol Sulf* (PROAIR HFA INHALER*) 8.5 Gm Inh, 90 MCG INH PRN 09/11/18 Atorvastatin Calcium (ATORVASTATIN CALCIUM) 20 Mg Tablet, 20 MG PO DAILY, #30 T AB 09/11/18 Hydrochlorothiazide (HYDROCHLOROTHIAZIDE) 25 Mg Tablet, 25 MG PO DAILY, #30 TAB 09/11/18 Losartan Potassium (LOSARTAN POTASSIUM) 25 Mg Tablet, 50 MG PO DAILY 09/11/18 Hydroxychloroquine Sulfate (HYDROXYCHLOROQUINE SULFATE) 200 Mg Tablet, 200 MG PO BID 08/15/17 Amlodipine Besylate (AMLODIPINE BESYLATE) 10 Mg Tablet, 5 MG PO DAILY, #30 TAB 08/11/17 Paroxetine Hcl (PAROXETINE HCL) 20 Mg Tablet, 20 MG PO DAILY, #30 TAB 04/10/17 Pantoprazole Sodium* (PROTONIX) 40 Mg Tablet.dr, 40 MG PO DAILY for INDIGESTION, TAB 04/10/17 Tizanidine Hcl (TIZANIDINE HCL) 4 Mg Tablet, 4 MG PO Q8 PRN for MUSCLE SPASMS 10/10/13 Levothyroxine Sodium (LEVOTHYROXINE SODIUM) 25 Mcg Tablet, 50 MCG PO DAILY 10/10/13 Acyclovir (ACYCLOVIR) 400 Mg Tablet, 400 MG PO DAILY 10/10/13 Medications in the ED Sodium Chloride 1,000 ml @ 0 mls/hr Q0M STAT IV ; Start 02/07/20 at 09:00; Stop 02/07/20 at 09:04; Status DC Potassium Chloride 40 meq NOW STAT PO ; Start 02/07/20 at 10:10; Stop 02/07/20 at 10:24; Status DC Potassium Chloride/Sodium Chloride 1,000 ml @ 100 mls/hr Q10H ONCE IV ; Start 02/07/20 at 10:15; Stop 02/07/20 at 20:14; Status KAYLEE CRUMP MD Feb 07, 2020 10:36
--- OUTSIDE RECORDS SUMMARY | 2020-02-07 11:14 | XMS REPORT | Continuity of Care Document ---
Author Author [facility] t Organization [facility] Address [address] [place] [address] Phone Unavailable Care Team Providers Care Lot Attendant Name Role Phone Juan Manuel PORRAS M.D. PCP Juan Manuel WEIR Attphys Unavailable JON KNOX Attphys Unavailable Anita SIGALA Attphys Unavailable Physician, Associated Non Attphys Unavailable Boyd Gary Attphys Anita PALACIO Attphys Unavailable OBDULIO, REYNOLD Attphys Unavailable DR DOMENICA GARY Attphys Unavailable OBDULIO, REYNOLD Admphys Unavailable DR DOMENICA GARY Admnata Unavailable Payers Payer Name Policy Type Policy Number Effective Date Expiration Date [facility] [id number] 2013 00:00:00 [facility] Problems Condition Name Condition Details Condition Category Status Onset Date Resolution Date Last Treatment Date Treating Clinician Comments Source RAÚL KNEE,OA, LT SHOULDER,NECK PAIN RAÚL KNEE,OA, LT SHOULDER,NECK PAIN Active 03/13/2018 [facility] [place] Diagnosis Active 2018-03-13 08:00:00 2018-03-19 13:15:00 M marilou Desai OA (osteoarthritis) of knee OA (osteoarthritis) of knee Disease Active 2017-12-26 00:00:00 Darrick Hsu LUMBAR SPINE/FOOT LUMB AR SPINE/FOOT Active 09/03/2016 [facility] Diagnosis Active 2016-09-03 16:00:00 2017-07-24 14:10:00 Vargas Lloyd RAÚL KNEE OA RAÚL KNEE OA Active 09/03/2016 [facility] Diagnosis Active 2016-09-03 16:00:00 2018-05-21 14:00:00 Vargas Desai Anemia Anemia Problem Active [facility] Hypokalemia Hypokalemia Problem Active [facility] Hyponatremia Hyponatremia Problem Active [facility] Rectal hemorrhage Rectal bleeding Problem Active [facility] Urinary tract infection UTI (urinary tract infection) Problem Active [facility] 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 factor, 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, multiple sites 01/07/2019 [facility] Problem 2019-01-07 11:43:47 Vargas Desai Primary osteoarthritis, left shoulder Primary osteoarthritis, left shoulder 01/07/2019 [facility] Problem 2019-01-07 11:43:47 [facility] [place] Other specified postprocedural states Other specified postprocedural states 01/07/2019 [facility] Problem 2019-01-07 11:43:47 [facility] Muscle weakness (generalized) Muscle weakness (generalized) 01/07/2019 [facility] Problem 01-07 11:43:47 [facility] [place] Cervicalgia Cerv icalgia 01/07/2019 [facility] Problem 2019-01-07 11:43:47 [facility] Pain in right knee Pain in right knee 01/07/2019 [facility] Problem 2019-01-07 11:43:47 [facility] Pain in left knee Pain in left knee 01/07/2019 [facility] Problem 2019-01-07 11:43:47 [facility] Pain in left shoulder Pain in left shoulder 01/07/2019 [facility] Problem 2019-01-07 11:43:47 [facility] [place] Difficulty in walking, not elsewhere classified Difficulty in walking, not elsewhere classified 01/07/2019 [facility] Problem 2019-01-07 11:43:47 [facility] [place] Unspecified abnormalities of gait and mobility Unspecified abnormalities of gait and mobility 01/07/2019 [facility] Problem 2019-01-07 11:43:47 [facility] [place] Other chronic pain Othe r chronic pain 12/05/2018 [facility] Problem 2018-12-05 11:39:31 Vargas Mayenann Secondary osteoarthritis, left shoulder Secondary osteoarthritis, left shoulder 11/05/2018 [facility] Problem 2018-11-05 11:40:50 [facility] [place] Pain in right shoulder Pain in right shoulder 11/05/2018 [facility] Problem 2018-11-05 11:40:50 [facility] Stiffness of unspecified joint, not elsewhere classifi ed Stiffness of unspecified joint, not elsewhere classified 11/28/2017 [facility] Problem 2017-11-28 11:56:15 [facility] [place] Other abnormalities of gait and mobility Other abnormalities of gait and mobility 11/28/2017 [facility] Problem 2017-11-28 11:56:15 [facility] Abnormal posture Abno rmal posture 11/28/2017 [facility] Problem 2017-11-28 11:56:15 [facility] BACK PAIN BACK PAIN Active [facility] Diagnosis Active 2015-12-03 13:53:00 Edgardor lukasz Desai BACK, RT KNEE, LEFT FOOT BACK , RT KNEE, LEFT FOOT Active [facility] Diagnosis Active 2015-10-29 14:23:00 [facility] [place] Bilateral primary osteoarthritis of knee Bilateral primary osteoarthritis of knee 06/23/2018 01/07/2019 [facility] Problem 2018-06-23 06:11:48 2019-01-07 11:43:47 2019-01-07 11:43:47 [facility] [place] Allergies, Adverse Reactions, Alerts Allergy Name Allergy Type Status Severity Reaction(s) Onset Date Inacti ve Date Treating Clinician Comments Source Latex Allergy to Substance Active 2019-03-29 00:00:00 [facility] clavulanic acid Allergy to Substance Active rash 2019-03-29 00:0 0:00 [facility] influenza virus vaccine, specific Allergy to Substance Active 2019-03-29 00:00:00 [facility] Amoxicillin Allergy to Substance Active rash 2019-03-29 00:00:00 [facility] Levofloxacin Allergy to Substance Active rash 2019-03-29 00:00:0 0 [facility] clavulanic acid DA Active U 2019-02-26 00:00:00 [facility] nitrofurantoin DA Active U 2019-02-26 00:00:00 [facility] amoxicillin DA Active U 2019-02-26 00:00:00 [facility] levofloxacin DA Active U 2019-02-26 00:00:00 [facility] latex DA Active U 2019-02-26 00:00:00 [facility] Amoxicillin-Pot Clavulanate Propensity to adverse reactions to drug Active Itching 2017-12-15 00:00:00 Darrick Hsu Latex Propensity to adverse reactions to drug Active Rash 2017-09-25 00:00:00 Darrick Hsu Nitrofurantoin Monohyd/M-Cryst Propensity to adverse reactions to d rug Active Rash 2016-02-16 00:00:00 Darrick Hsu Adhesive tape Adhesive tape Active [facility] Macrobid Macrobid Active [facility] Family History Family Member Diagnosis Comments Start Date Stop Date Source Natural father Heart disease Darrick Hsu Natural mother Hypertension Darrick Hsu Natural mother Stroke [facility] thod[facility] Social History Social Habit Start Date Stop Date Quantity Comments Source Sex Assigned At Aiden rubalcavacaleb Hsu Cigarettes smoked current (pack per day) - Reported 00:00:00 2017-12-27 00:00:00 Darrick Hsu Alcohol intake 2017-12-27 00:00:00 2017-12-27 00:00:00 Current non-drinker of alcohol (finding) Darrick Hsu Tobacco Comment 2016-02-16 00:00:00 2016-02-16 00:00:00 Quit 12 years ago Darrick Hsu History of tobacco use 2004-12-15 00:00:00 Current smoker Darrick Hsu Smoking Status Start Date Stop Date Source Former smoker 2017-12-27 00:00:00 2017-12-27 00:00:00 Darrick Hsu Medications Ordered Medication Name Filled Medication Name Start Date Stop Da te Current Medication? Ordering Clinician Indication Dosage Frequency Signature (SIG) Comments Components Source acyclovir (ZOVIRAX) 400 MG tablet 2017-12-28 11:52:07 Yes 400mg QD Take 400 mg by mouth daily. Darrick james amLODIPine (NORVASC) 5 mg tablet 2017-12-28 11:52:07 Yes 5mg QD Take 5 mg by mouth daily. Darrick Hsu pantoprazole (PROTONIX) 40 MG EC tablet 2017-12-28 11:52:07 Yes 40mg QD Take 40 mg by mouth daily. Darrick [place] albuterol (PROAIR HFA,PROVENTIL HFA,VENTOLIN HFA) 90 mcg/act uation inhaler 2017-12-28 11:52:07 Yes 2{puff} Q6H Inhale 2 puffs every 6 (six) hours as needed for wheezing. Darrick Hsu promethazine (PHENERGAN) 25 MG tablet 2017-12-28 11:52:07 Y es 25mg Q6H Take 25 mg by mouth every 6 (six) hours as needed for nausea or vomiting. Darrick Hsu hydroxychloroquine (PLAQUENIL) 200 mg tablet 2017-12-28 11:52:07 Yes 200mg Q.5D Take 200 mg by mouth 2 (two) times a day. Darrick Hsu calcium carbonate (CALCIUM 600) 600 mg calcium (1,500 mg) ta blet 2017-12-28 11:52:07 Yes 600mg Q.5D Take 600 m g by mouth 2 (two) times a day with meals. Darrick Hsu ascorbic acid, vitamin C, (vitamin C) 1000 MG tablet 2 11:52:07 Yes 1000mg QD Take 1,000 mg by mouth daily. Darrick Hsu cholecalciferol, vitamin D3, (VITAMIN D3) 2,000 unit capsule capsule 2017-12-28 11:52:07 Yes 2000U QD Take 2,000 Units b y mouth daily. Darrick Hsu multivitamin with minerals tablet 2017-12-28 11:52:07 Yes 1{tbl} QD Take 1 tablet by mouth daily. Darrick Mena st valsartan-hydrochlorothiazide (DIOVAN-HCT) 160-25 mg per tab let 2017-12-28 11:52:07 Yes 1{tbl} QD Take 1 tablet by mouth daily. Darrick Hsu SUMAtriptan (IMITREX) 50 MG tablet 2017-12-28 11:52:07 Yes 100mg Take 100 mg by mouth as needed for migraine. May repeat in 2 hours if unresolved. Do not exceed 200 mg in 24 hours. Darrick Cobos ethodist biotin 10,000 mcg capsule 2017-12-28 11:52:07 Yes QD Take by mouth daily. Darrick Hsu ZANAFLEX 4 mg tablet 2017-09-06 00:00:00 Yes 4mg Q6H Take 4 mg by mouth every 6 (six) hours as needed. Darrick Hsu SYNTHROID 50 mcg tablet 2017-09-05 00:00:00 Yes 50mg 50 mg. Darrick Hsu FLONASE ALLERGY RELIEF 50 mcg/actuation nasal spray 09-01 00:00:00 Yes Darrick carroll sulfamethoxazole-trimethoprim (BACTRIM DS) 800-160 mg per ta blet 2017-08-30 00:00:00 Yes Darrick Hsu PAXIL 10 mg tablet 2017-08-26 00:00:00 Yes 10mg QD Take 10 mg by mouth daily. Darrick Hsu LIPITOR 20 mg tablet 2017-08-26 00:00:00 Yes Darrick Hsu diclofenac (VOLTAREN) 1 % gel 2017-08-20 00:00:00 Yes Darrick Hsu diazePAM (VALIUM) 10 MG tablet 2017-08-10 00:00:00 Yes QD nightly as needed. Darrick Hsu Acyclovir 400 Mg Tablet Acyclovir 400 Mg Tablet Yes 40 0 Daily [facility] Albuterol Sulfate (Proair Hfa Inhaler*) 8.5 Gm Inh Alb uterol Sulfate (Proair Hfa Inhaler*) 8.5 Gm Inh Yes 90 Daily [facility] Amlodipine Besylate 10 Mg Tablet Amlodipine Besylate 10 Mg Tablet Yes 5 Daily [facility] Ascorbic Acid (Vitamin C) 1,000 Mg Tablet Ascorbic Aci d (Vitamin C) 1,000 Mg Tablet Yes 1000 Daily [facility] Atorvastatin Calcium 20 Mg Tablet Atorvastatin Calcium 20 Mg Tablet Yes 20 Bedtime [facility] Biotin 2,500 Mcg Capsule Biotin 2,500 Mcg Capsule Yes [address]20 Daily [facility] Calcium Calcium Yes 600 Daily [facility] Cholecalciferol (Vitamin D3) (Vitamin D3) 1,000 Unit C apsule Cholecalciferol (Vitamin D3) (Vitamin D3) 1,000 Unit Capsule Yes 2000 Daily [facility] Colestipol Hcl,Micronized (Colestipol Hcl) 1 Gm Tablet Colestipol Hcl,Micronized (Colestipol Hcl) 1 Gm Tablet Yes 1 Twice A D ay [facility] Diazepam (Valium) 10 Mg Tablet Diazepam (Valium) 10 Mg Tablet Yes 10 as needed for Anxiety [facility] Dicyclomine Hcl 20 Mg Tablet Dicyclomine Hcl 20 Mg Tablet Y es 20 Four Times Daily [facility] Hydrochlorothiazide 25 Mg Tablet Hydrochlorothiazide 25 Mg Tablet Yes 25 Daily [facility] Hydrocodone Bit/Acetaminophen ([place] 5-325 Tablet) 1 E ach Tablet Hydrocodone Bit/Acetaminophen ([place] 5-325 Tablet) 1 Each Tablet Yes 1 Four Times Daily [facility] Hydroxychloroquine Sulfate 200 Mg Tablet Hydroxychloro quine Sulfate 200 Mg Tablet Yes Twice A Day [facility] Levothyroxine Sodium 25 Mcg Tablet Levothyroxine Sodium 25 Mcg Tablet Yes 50 Daily [facility] Losartan Potassium 25 Mg Tablet Losartan Potassium 25 Mg Tablet Yes 50 Daily [facility] Mometasone Mometasone Yes 50 Daily [facility] Mometasone Furoate 30 Ml Solution Mometasone Furoate 30 Ml Solution Yes 50 Daily [facility] Multivitamin Ultra Multivitamin Ultra Yes 1 Da pablo [facility] Pantoprazole Sodium (Protonix) 40 Mg Tablet. Pantopr azole Sodium (Protonix) 40 Mg Tablet. Yes 40 Daily for Indigestion [facility] Paroxetine Hcl 20 Mg Tablet Paroxetine Hcl 20 Mg Tablet Yes 10 Daily [facility] Promethazine Hcl 25 Mg Tablet Promethazine Hcl 25 Mg Tablet Yes 25 As Needed [facility] Sumatriptan Succinate (Imitrex) 25 Mg Tablet Sumatript an Succinate (Imitrex) 25 Mg Tablet Yes 100 As Needed as needed for Migr carlos [facility] Tizanidine Hcl 4 Mg Tablet Tizanidine Hcl 4 Mg Tablet Yes 4 Every 8 Hours as needed for Muscle Spasms [facility] Tolterodine Tartrate (Detrol La) 4 Mg Cap.er.24h Tolte rodine Tartrate (Detrol La) 4 Mg Cap.er.24h Yes 4 Daily [facility] Valtarian Gel Valtarian Gel Yes 100 Daily [facility] Meloxicam 7.5 Mg Tablet, 7.5 Mg Oral Meloxicam 7.5 Mg Tablet, 7. 5 Mg Oral 2018-10-03 00:00:00 No 7.5 Daily [facility] Acetaminophen With Codeine (Tylenol With Codeine #3 Tablet) 1 Each Tablet, 300 Mg Oral Acetaminophen With Codeine (Tylenol With Codeine #3 Tablet) 1 Each Tablet, 300 Mg Oral 2018-09-11 00:00:00 No 300 As Needed as needed for Pain [facility] Cholestyramine (With Sugar) (Questran Packet) 4 Gm Pac ket, 4 Gm Oral Cholestyramine (With Sugar) (Questran Packet) 4 Gm Packet, 4 Gm Oral 2018-09-11 00:00:00 No 4 Daily [facility] Diclofenac Epolamine (Flector) 1 Each Adh..patch, 1 Do se Topically Diclofenac Epolamine (Flector) 1 Each Adh..patch, 1 Dose Topically 2018 00:00:00 No 1 [facility] Hydrocodone Bit/Acetaminophen ([place] 5-325 Tablet) 1 E ach Tablet, 1 Each Oral Hydrocodone Bit/Acetaminophen ([place] 5-325 Tablet) 1 Each Tablet, 1 Each Oral 2018-09-11 00:00:00 No 1 As Needed as needed for Pain [facility] Sumatriptan Succinate 100 Mg Tablet, 100 Mg Oral Sumat riptan Succinate 100 Mg Tablet, 100 Mg Oral 2018-09-11 00:00:00 No 100 Daily as needed for Migraine [facility] Valsartan/Hydrochlorothiazide (Diovan Hc t 160-25 Mg Tablet) 1 Each Tablet, 1 Tab Oral Valsartan/Hydrochlorothiazide (Diovan Hc t 160-25 Mg Tablet) 1 Each Tablet, 1 Tab Oral 2018-09-11 00:00:00 No 1 A s Needed as needed for High Blood Pressure [facility] Amoxicillin/Potassium Clav (Amox Tr-K Cl v 875-125 Mg Tab) 1 Each Tablet, 1 Tab Oral Amoxicillin/Potassium Clav (Amox Tr-K Cl v 875-125 Mg Tab) 1 Each Tablet, 1 Tab Oral 2017-08-15 00:00:00 No 1 Twice A Day [facility] Atorvastatin Calcium 20 Mg Tablet, 20 Mg Oral Atorvast atin Calcium 20 Mg Tablet, 20 Mg Oral 2017-08-15 00:00:00 No 20 Daily [facility] Fluticasone/Salmeterol (Advair 100-50 Diskus) 1 Each D isk.w.dev, 50 Mcg Nasal Fluticasone/Salmeterol (Advair 100-50 Diskus) 1 Each Disk.w.dev, 50 Mcg Nasal 2017-08-15 00:00:00 No 50 Daily [facility] Abatacept (Orencia) 125 Mg/1 Ml Disp.syrin, 125 Mg Sub -Q Abatacept (Orencia) 125 Mg/1 Ml Disp.syrin, 125 Mg Sub-Q 2017-08-11 00:00:00 No 125 [facility] Albuterol Sulfate (Proair Hfa Inhaler*) 8.5 Gm Inh, 90 Mcg Inhalation Albuterol Sulfate (Proair Hfa Inhaler*) 8.5 Gm Inh, 90 Mcg Inhalation 2017-08-11 00:00:00 No 90 Every 4 Hours [facility] Levalbuterol Hcl 0.63 Mg/3 Ml Vial.neb, 0.63 Mg Nebull izer Levalbuterol Hcl 0.63 Mg/3 Ml Vial.neb, 0.63 Mg Nebullizer 2017-08-11 00:00:00 No .63 As Needed [facility] Melatonin 10 Mg Tablet, 10 Mg Oral Melatonin 10 Mg Tablet, 10 Mg Oral 2017-08-11 00:00:00 No 10 Bedtime as needed fo r Insomnia [facility] Hydrocodone Bit/Acetaminophen ([place] 10- 325 Tablet) 1 Each Tablet, 10-325 Mg Oral Hydrocodone Bit/Acetaminophen ([place] 10- 325 Tablet) 1 Each Tablet, 10-325 Mg Oral 2017-04-13 00:00:00 No Every 8 Hours as needed for Pain [facility] Morphine Sulfate (Morphine Sulfate Er) 30 Mg Cap.er.pe l, 30 Mg Oral Morphine Sulfate (Morphine Sulfate Er) 30 Mg Cap.er.pel, 30 Mg Oral 2017-04-13 00:00:00 No 30 As Needed as needed for Pain [facility] Promethazine Hcl 25 Mg Tablet, 25 Mg Oral Promethazine Hcl 25 Mg Tablet, 25 Mg Oral 2017-04-13 00:00:00 No 25 Ever y 6 Hours as needed for Indigestion [facility] Amlodipine Besylate (Norvasc) 5 Mg Tab, 5 Mg Oral Amlo dipine Besylate (Norvasc) 5 Mg Tab, 5 Mg Oral 2017-04-10 00:00:00 No 5 Audrey y [facility] Aspirin (Aspirin Ec) 81 Mg Tablet., 81 Mg Oral Aspir in (Aspirin Ec) 81 Mg Tablet., 81 Mg Oral 2017-04-10 00:00:00 No 81 Da pablo [facility] Budesonide (Budesonide Ec) 3 Mg Capdr...er, 3 Mg Oral Budesonide (Budesonide Ec) 3 Mg Capdr...er, 3 Mg Oral 2017-04-10 00:00:00 No 3 Daily [facility] Hydrocodone Bit/Acetaminophen ([place] 7.5 -325 Tablet) 1 Each Tablet, 7.5-325 Mg Oral Hydrocodone Bit/Acetaminophen ([place] 7.5 -325 Tablet) 1 Each Tablet, 7.5-325 Mg Oral 2017-04-10 00:00:00 No Ever y 6 Hours as needed for Breakthrough Pain [facility] Hydrocodone Bit/Acetaminophen ([place] 7.5-325 Tablet) 1 Each Tablet, 1 Tab Oral Hydrocodone Bit/Acetaminophen ([place] 7.5-325 Tablet) 1 Each Tablet, 1 Tab Oral 2017-04-10 00:00:00 No 1 Every 6 Hours as n eeded for Pain [facility] Lactobacillus Acidophilus (Acidophilus) 1 Each Tablet, 1 Tab Oral Lactobacillus Acidophilus (Acidophilus) 1 Each Tablet, 1 Tab Oral 2017-04-10 00:0 0:00 No 1 Daily [facility] Mesalamine (Apriso) 0.375 Gm Cap.er.24h, 0.375 Gm Oral Mesalamine (Apriso) 0.375 Gm Cap.er.24h, 0.375 Gm Oral 2017-04-10 00:00:00 No .375 Daily [facility] Morphine Sulfate (Ms Contin) 60 Mg Tablet.er, 60 Mg Or al Morphine Sulfate (Ms Contin) 60 Mg Tablet.er, 60 Mg Oral 2017-04-10 00:00:00 No 60 as needed for Pain [facility] Omeprazole 20 Mg Capsule., 20 Mg Oral Omeprazole 20 Mg Cap allyssa., 20 Mg Oral 2017-04-10 00:00:00 No 20 Daily [facility] Sertraline Hcl 100 Mg Tablet, 100 Mg Oral Sertraline H cl 100 Mg Tablet, 100 Mg Oral 2017-04-10 00:00:00 No 100 Daily [facility] Simvastatin 10 Mg Tablet, 10 Mg Oral Simvastatin 10 Mg Tablet, 1 0 Mg Oral 2017-04-10 00:00:00 No 10 Bedtime [facility] Procedures Procedure Date / Time Performed Performing Clinician [facility] e CONTROL BLEEDING IN GASTROINTESTINAL TRACT, ENDO 2018-10-02 00:00:00 JON KNOX [facility] Computed tomography of abdomen and pelvis with contrast 2018 00:00:00 SHERIE SIGALA [facility] EGD BIOPSY SINGLE/MULTIPLE 2018-09-17 00:00:00 JON KNOX [facility] COLONOSCOPY AND BIOPSY 2018-09-17 00:00:00 JON KNOX [facility] COLONOSCOPY W/LESION REMOVAL 2018-09-17 00:00:00 JON KNOX [facility] COLONOSCOPY W/LESION REMOVAL 2018-09-17 00:00:00 JON KNOX [facility] Plan of Care Planned Activity Planned Date Details Comments Source Future Scheduled Test 2020-03-05 00:00:00 INFLUENZA VACCINE [code = INFLUENZA VACCINE] Darrick Hsu Future Scheduled Test 2012 00:00:00 65+ PNEUMOCOCCAL V ACCINE (1 of 2 - PCV13) [code = 65+ PNEUMOCOCCAL VACCINE (1 of 2 - PCV13)] [facility] Future Scheduled Test 1997 00:00:00 BREAST CANCER SCRE ENING [code = BREAST CANCER SCREENING] [facility] Future Scheduled Test 1997 00:00:00 COLONOSCOPY SCREEN ING [code = COLONOSCOPY SCREENING] [facility] Future Scheduled Test 1997 00:00:00 SHINGLES VACCINES (#1) [code = SHINGLES VACCINES (#1)] [facility] Encounters Start Date/Time End Date/Time Encounter Type Admission Type Attendi [facility] Care Department Encounter ID Source 2019-03-29 14:54:00 2019-03-29 17:57:00 Departed Emergency Room [facility] [id number] [facility] 2018-10-01 03:29:00 2018-10-03 11:28:00 Discharged Inpatient 1 SHERIE SIGALA [facility] [id number] [facility] 2018-09-17 11:12:00 2018-09-17 11:12:00 Registered Surgical Day Care [facility] [id number] [facility] 2018-05-21 13:58:00 2018-06-19 23:59:00 Outpatient Physici an, Non Associated [id number] 2018-04-18 12:00:00 2018-05-17 23:59:00 Outpatient Physici an, Non Associated [id number] 2018-03-19 13:12:00 2018-04-17 23:59:00 Outpatient Physici an, Non Associated [id number] 2017-07-24 14:08:00 2017-08-22 23:59:00 Outpatient Steinha user, Domenica Nix [id number] 2017-06-21 14:15:00 2017-07-20 23:59:00 Outpatient Steinha user, Domenica Nix [id number] 2015-12-03 13:53:00 2016-01-01 23:59:00 Outpatient Steinha user, Domenica Nix [id number] 2015-10-29 14:26:00 2015-11-27 23:59:00 Outpatient Steinha user, Domenica Nix [id number] Results Test Description Test Time Test Comments Results Result Comments Source CHEST SINGLE (PORTABLE) 2020-02-07 09:34:00 [place] [address] Patient Name: CLARI WALTON MR #: [id number] : 1945 Age/Sex: 74/F Req #: [id number] Adm Physician: Ordered by: KAYLEE WEIR MD Report #: [id number] Location: ER Room/Bed: Procedure: DX/CHEST SINGLE (PORTABLE) Exam Date: 02/07/20 Exam Time: 909 REPORT STATUS: Signed TECHNIQUE: Frontal view of the chest. INDICATION: fatigue [id number] COMPARISON: None DISCUSSION: Limited evaluation due to portable technique. Lines and hardware: Cervical fusion changes are noted. Heart and mediastinum: Cardiom ediastinal silhouette is at the upper limits of normal for size. Pulmonary vascularity is within normal limits. Thoracic aorta is tortuous with calcifications of the aortic knob. Lungs and pleura: No focal airspace consolidation. No pleural effusion. No pneumothorax. Soft tissues and bones: No acute abnormality. IMPRESSION: Negative for acute intrathoracic process. Signed by: Zoey Her MD on 02/07/2020 9:35 AM Dictated By: ZOEY HER MD 4 Transcribed By: ARNOLD on 02/07/20934 COPY TO: KAYLEE LAGUNA MD CT ABDOMEN/PELVIS W 2019-11-20 11:20:00 [place] [address] Patient Name: CLARI WALTON MR #: [id number] : 1945 Age/Sex: 74/F Req #: [id number] Adm Physician: Ordered by: JON KNOX MD Report #: [id number] Location: CT Room/Bed: Procedure: [id number] CT/CT ABDOMEN/PELVIS W Exam Date: 11/20/19 Exam Time: 1106 REPORT STATUS: Signed EXAM: CT of the abdomen and pelvis with intravenous contrast HISTORY: [id number] UPPER ABD PAIN COMPARISON: 10/01/18 TECHNIQUE: Abdomen and pelvis were scanned utilizing a multidetector helical scanner. Coronal and sagittal reformations were obtained. Scan was performed during the portal venous phase. DOSE REDUCTION: The examination was performed according to the departmental dose- optimization program, which includes automated exposure control, adjustment of the mA and/or kV according to patient size and/or use of iterative reconstruction technique. FINDINGS: LINES and TUBES: None. LOWER THORAX: Coronary calcifications. HEPATOBILIARY: Subcentimeter hepatic hypodensities are too small to characterize.. No biliary ductal dilation. GALLBLADDER: No radio-opaque stones or sludge. No wall thickening. SPLEEN: No splenomegaly. PANCREAS: No focal masses or ductal dilatation. ADRENALS: No adrenal nodules. KIDNEYS/URETERS: Kidneys enhance symmetrically. No hydronephrosis. No cystic or solid mass lesions. No stones. GI TRACT: No abnormal distention, wall thickening, or evidence of bowel obstruction. Appendix is normal. PELVIC ORGANS/BLADDER: Unremarkable. LYMPH NODES: No lymphadenopathy. VESSELS: Scattered vascular calcifications. PERITONEUM / RETROPERITONEUM: No free air or fluid. BONES: Scattered degenerative changes. Lumbar spine as process hardware. L4 on L5 grade I anterolisthesis. SOFT TISSUES: Unremarkable. IMPRESSION: No acute intra-abdominal abnormality. Signed by: Hermilo Campos MD on 11/20/2019 11:30 AM Dictated By: HERMILO CAMPOS DO 1130 Transcribed By: ARNOLD on 11/20/19 1130 COPY TO: JON KNOX MD DIAG MAMM BILATERAL CIRO CAD DIGITAL 2019-06-27 16:58:04 - DIAG MAMM BILATERAL CIRO CAD DIGITALBILATERAL DIGITAL DIAGNOSTIC MAMMOGRAM 3D/2D WITH CAD: 06/27/2019CLINICAL: Dense breasts. Digital breast tomosynthesis was performed in addition to routine CC and MLO views. Current mammographic images were evaluated by either a Music[employer] M-Vu or a [employer] ImageChecker CAD (computer aided detection system). Comparison is made to exams dated 06/18/2018 mammogram, mammogram, and 04/26/2016 mammogram - [facility] The tissue of both breasts is heterogeneously dense. This may lower the sensitivity of mammography. There are benign calcifications in both breasts. There also is a benign cyst in the right breast. Additionally, there are benign nodules in the left breast. No suspicious mass, architectural distortion, malignant type calcification, or lymph node abnormality detected. INCOMPLETE: ADDITIONAL IMAGING EVALUATION NEEDEDBilateral ultrasound pending for additional evaluation. - BREAST ULTRASOUND BILATERALULTRASOUND OF BOTH BREASTS AND BOTH AXILLA: 06/27/2019Comparison is made to exams dated 06/18/2018 mammogram, 06/19/2017 mammogram, and [facility] Real-time ultrasound of both breasts and both axilla and clinical breast exam were performed. No abnormalities were seen sonographically in either axilla. Benign cysts and dilated ducts were seen bilaterally. No solid masses were seen. IMPRESSION: BENIGN There is no sonographic evidence of malignancy. Patient has been informed that she has areas of dense breast tissue that could make it difficult to find a small cancer. A screening mammogram and supplemental ultrasound for dense breast tissue is recommended in 1 year.Mimi Navarro M.D. dm/:06/27/2019 16:58:04 Rn Assessment: Cindy Hernandez , [facility] BIRADS 1-2 Combo FU Letter Mammogram BI-RADS: 0 Incomplete: Additional Imaging Evaluation Needed Ultrasound BI-RADS: 2 Benign BREAST ULTRASOUND BILATERAL 2019-06-27 16:58:04 - DIAG MAMM BILATERAL CIRO CAD DIGITALBILATERAL DIGITAL DIAGNOSTIC MAMMOGRAM 3D/2D WITH CAD: 06/27/2019CLINICAL: Dense breasts. Digital breast tomosynthesis was performed in addition to routine CC and MLO views. Current mammographic images were evaluated by either a Musicraiser M-Vu or a [employer] ImageChecker CAD (computer aided detection system). Comparison is made to exams dated 06/18/2018 mammogram, mammogram, and [facility]/26/2016 [facility] The tissue of both breasts is heterogeneously dense. This may lower the sensitivity of mammography. There are benign calcifications in both breasts. There also is a benign cyst in the right breast. Additionally, there are benign nodules in the left breast. No suspicious mass, architectural distortion, malignant type calcification, or lymph node abnormality detected. INCOMPLETE: ADDITIONAL IMAGING EVALUATION NEEDEDBilateral ultrasound pending for additional evaluation. - BREAST ULTRASOUND BILATERALULTRASOUND OF BOTH BREASTS AND BOTH AXILLA: 06/27/2019Comparison is made to exams dated 06/18/2018 mammogram, 06/19/2017 mammogram, and 04/26/2016 mammogram - [facility]-. Real-time ultrasound of both breasts and both axilla and clinical breast exam were performed. No abnormalities were seen sonographically in either axilla. Benign cysts and dilated ducts were seen bilaterally. No solid masses were seen. IMPRESSION: BENIGN There is no sonographic evidence of malignancy. Patient has been informed that she has areas of dense breast tissue that could make it difficult to find a small cancer. A screening mammogram and supplemental ultrasound for dense breast tissue is recommended in 1 year.Mimi Navarro M.D. dm/:06/27/2019 16:58:04 Rn Assessment: Cindy ANDERSON, [facility]-letter sent: BIRADS 1-2 Combo FU Letter Mammogram BI-RADS: 0 Incomplete: Additional Imaging Evaluation Needed Ultrasound BI-RADS: 2 Benign Urine WBC 2019-03-29 16:51:00 Test Item Urine WBC (test code = 5821-4) NONE 0-5 [facility] [id number] 16:51:00* Test Item Value Reference Range Interpretation Comments Urine RBC (test code = 93161-5) 0-5 0-5 [facility] Fyrjpepj9941-77-99 16:51:00* Test Item Value Reference Range Interpretation Comments Urine Bacteria (test code = 28258-3) NONE NONE [facility] Epithelial Aybtf7471-83-27 16:51:00 * Test Item Value Reference Range Interpretation Comments Urine Epithelial Cells (test code = 37809-4) RARE NONE [facility] Zumvh2087-20-21 16:33:00* Test Item Value Reference Range Interpretation Comments Urine Color (test code = 5778-6) ORANGE YELLOW H [facility] Ujapdoo9835-74-39 16:33:00* Test Item Value Reference Range Interpretation Comments Urine Clarity (test code = 75158-2) SL CLOUDY CLEAR [facility] Specific Ygtvmwe5850-34-75 16:33:00 * Test Item Value Reference Range Interpretation Comments Urine Specific [place] (test code = 5811-5) <=1.005 1.010-1.02 5 [facility] [id number] 16:33:00* Test Item Value Reference Range Interpretation Comments Urine pH (test code = 60701-1) 6.5 5-7 [facility] Leukocyte Pxiobkvb8485-26-05 16:33:00* Test Item Value Reference Range Interpretation Comments Urine Leukocyte Esterase (test code = 03080-2) NEGATIVE NEGATIV E [facility] Opfjzml8573-76-41 16:33:00* Test Item Value Reference Range Interpretation Comments Urine Nitrite (test code = 52218-2) POSITIVE NEGATIVE H [facility] Xzvvmyt9384-78-26 16:33:00* Test Item Value Reference Range Interpretation Comments Urine Protein (test code = 43533-7) NEGATIVE NEGATIVE [facility] Glucose (UA)2019-03-29 16:33:00* Test Item Value Reference Range Interpretation Comments Urine Glucose (UA) (test code = 20495-4) NEGATIVE NEGATIVE [facility] Tslcrnz1997-20-09 16:33:00* Test Item Value Reference Range Interpretation Comments Urine Ketones (test code = 85069-4) NEGATIVE NEGATIVE [facility] Xcuhneuxhwaz3247-66-94 16:33:00* Test Item Value Reference Range Interpretation Comments Urine Urobilinogen (test code = 45982-4) 0.2 0.2-1 [facility] Zyciorcqh1609-24-16 16:33:00* Test Item Value Reference Range Interpretation Comments Urine Bilirubin (test code = 1977-8) NEGATIVE NEGATIVE [facility] Vabxv3938-51-42 16:33:00* Test Item Value Reference Range Interpretation Comments Urine Blood (test code = 75798-9) NEGATIVE NEGATIVE [facility]- XR FLUOROSCOPY 0-60 [id number] 07:35:00Patient Name: CLARI WALTON Unit No: [id number] EXAMS: CPT CODE: [id number] XR FLUOROSCOPY 0-60 MIN 10277 Fluoroscopy 2 views intraoperative 03/02/2019 7:34 AM CLINICAL HISTORY: Instrument localization COMPARISON: None available LOCATION: W1 IMPRESSION: Please correlate imaging report findings with the procedure note prepared by Dr. Rene, as an intra-procedure imaging consultation was not requested. Reported fluoroscopy time: 12 seconds at 0735 Reported and signed by: ROBBIE SHAIKH M.D. CC: Rui Rene MD Technologist: David Felix Fluoro Time: DAP (Gy m2): Air Kerma (mGy): Trscr Dt/Tm: 03/02/2019 (0735) by:[email or web address] Printed Date/Time: 03/02/2019 (0738) Name: CLARI WALTON [facility] Phys: Rui Cole MD [address] : 1945 Age: 73 Sex: [place] [address] Loc: P.SRG Exam Date: 03/01/2019 Status: [facility] PH: FAX: PAGE 1 Signed Report - XR CHEST 1 [id number] 15:26:00Patient Name: CLARI WALTON Unit No: [id number] EXAMS: CPT CODE: [id number] XR CHEST 1 V 49821 INDICATIONS: PREOP BASELINE COMPARISON: There are no prior studies for comparison. Location: W1 A single portable AP view of the chest demonstrates a borderline heart size with a calcified elongated aorta. The lung garcia are grossly clear. No apparent pleural effusion nor pneumothorax. The visualized bony structures are unremarkable. IMPRESSIONS: 1. No acute cardiopulmonary changes noted. at 1526 Reported and signed by: Ludwig Louise MD CC: Rui Rene MD Technologist: Alpesh Garcia Fluoro Time: DAP (Gy m2): Air Kerma (mGy): Trscr Dt/Tm: 02/26/2019 (2416) by:[email or web address] Printed Date/Time: 02/26/2019 (1108) Name: CLARI WALTON [facility] Phys: Rui Cole MD [address] : 1945 Age: 73 Sex: F [place], [place] [address] Loc: P.SRG Exam Date: 02/26/2019 Status: PRE SDC PH: FAX: PAGE 1 Signed Report COMPREHENSIVE METABOLIC [id number] 14:26:00* Test Item Value Reference Range Interpretation Comments SODIUM (test code = NA) 129 MMOL/L 136-143 L POTASSIUM (test code = K) 4.4 MMOL/L 3.5-5.1 N CHLORIDE (test code = CL) 87 MMOL/L 98-107 L CARBON DIOXIDE (test code = CO2) 28 mmol/L 24-31 N GLUCOSE (test code = GLU) 97 mg/dL 70-104 N BLOOD UREA NITROGEN (test code = BUN) 14.2 MG/DL 7.0-21.0 N GLOMERULAR FILTRATION RATE (test code = GFR) >=60 max estimate >60 The estimated glomerular filtration rate is computed usingpatient race, age (>18), sex, and serum creatinine. If anyof the needed data elements are missing the Laboratory cannot compute an estimation of the glomerular filtration rate. CREATININE (test code = CREAT) 0.6 mg/dL 0.8-1.5 L TOTAL PROTEIN (test code = PROT) 6.9 g/dL 6.3-8.3 N ALBUMIN (test code = ALB) 4.2 G/DL 3.5-5.0 N CALCIUM (test code = CA) 9.6 mg/dL 8.8-10.2 N BILIRUBIN TOTAL (test code = BILT) 0.5 mg/dL 0.2-1.0 N SGOT/AST (test code = AST) 24 IU/L 10-34 N SGPT/ALT (test code = ALT) 17 U/L 10-36 N ALKALINE PHOSPHATASE (test code = ALKP) 94 U/L 32-104 N PROTHROMBIN [id number] 14:14:00* Test Item Value Reference Range Interpretation Comments PROTHROMBIN TIME PATIENT (test code = PTP) 11.7 SECONDS 10.3-12.9 N INTERNATIONAL NORMAL RATIO (test code = INR) 1.01 INR UNIT 0.9-1.11 N The INR is useful only for monitoring anticoagulant therapy.It may be unreliable in the initial phase of antigoagulationand in unstable patients. Indication for Anticoagulation Recommended INR 1. Prevention of venous thomboembolism 2.0-3.0in high-risk patients; treatment of venousthrombosis and pulmonary embolism aftera course of heparin; prevention of systemicembolism in a variety of conditions, including atrial fibrillation and prothetic tissue heart valves, 2. Prosthetic mechanical heart valves; 2.5-3.5recurrent systemic embolism. THROMBOPLASTIN TIME [id number] 14:14:00* Test Item Value Reference Range Interpretation Comments THROMBOPLASTIN TIME PARTIAL (test code = PTT) 30.5 SECONDS 26.0-35. 9 N INTERPRETATIVE DATA:Therapeutic range: Unfractionated heparin:47 - 71 seconds Argatroban:1.5 to 3 times the baseline PTT CBC W/AUTO [id number] 14:12:00* Test Item Value Reference Range Interpretation Comments WHITE BLOOD CELL (test code = WBC) 8.4 x10 3/uL 4.8-10.8 N RED BLOOD CELL (test code = RBC) 3.82 x10 6/uL 4.20-5.40 L HEMOGLOBIN (test code = HGB) 11.8 g/dL 14.5-20 L HEMATOCRIT (test code = HCT) 35.3 % 37.0-47.0 L MEAN CELL VOLUME (test code = MCV) 92.4 fL 81.0-99.0 N MEAN CELL HGB (test code = MCH) 30.9 pg 27-31 N MEAN CELL HGB CONCENTRATION (test code = MCHC) 33.4 G/DL 33-36.5 N RED CELL DISTRIBUTION WIDTH (test code = RDW) 13.0 % 12.9-16. 9 N PLATELET COUNT (test code = PLT) 381 150-440 N MEAN PLATELET VOLUME (test code = MPV) 8.1 fL 8.9-12.4 L NEUTROPHIL % (test code = NT%) 65.9 % 42.2-75.2 N LYMPHOCYTE % (test code = LY%) 20.0 % 20.5-51.1 L MONOCYTE % (test code = MO%) 11.6 % 1.7-9.3 H EOSINOPHIL % (test code = EO%) 0.6 % 0.0-7.0 N BASOPHIL % (test code = BA%) 1.2 % 0-2.5 N NEUTROPHIL # (test code = NT#) 5.51 x10 3/uL 1.80-7.70 N LYMPHOCYTE # (test code = LY#) 1.67 x10 3/uL 1.00-4.80 N MONOCYTE # (test code = MO#) 0.97 x10 3/uL 0.00-0.80 H EOSINOPHIL # (test code = EO#) 0.05 x10 3/uL 0.00-0.45 N BASOPHIL # (test code = BA#) 0.10 x10 3/uL 0.0-0.20 N Sodium Kekcz1777-45-23 05:45:00* Test Item Value Reference Range Interpretation Comments Sodium Level (test code = 2951-2) 128 136-145 L [facility] Ifdwi8447-80-83 05:45:00* Test Item Value Reference Range Interpretation Comments Potassium Level (test code = 2823-3) 4.4 3.5-5.1 [facility] HospitalChloride Lfhrr8716-83-37 05:45:00* Test Item Value Reference Range Interpretation Comments Chloride Level (test code = 2075-0) 100 98-107 [facility] HospitalCarbon Dioxide Lnaqg2807-28-74 05:45:00* Test Item Value Reference Range Interpretation Comments Carbon Dioxide Level (test code = 2028-9) 21 22-29 L [facility] HospitalAnion Gsa7710-54-00 05:45:00* Test Item Value Reference Range Interpretation Comments Anion Gap (test code = 45996-9) 11.4 8-16 [facility] HospitalBlood Urea Xbcgapst4082-11-12 05:45:00* Test Item Value Reference Range Interpretation Comments Blood Urea Nitrogen (test code = 3094-0) < 5 7-26 L [facility] HospitalCreatinine2019-05-01 05:45:00* Test Item Value Reference Range Interpretation Comments Creatinine (test code = 2160-0) 0.65 0.57-1.11 [facility] HospitalBUN/Creatinine Gbbyi5577-01-60 05:45:00* Test Item Value Reference Range Interpretation Comments BUN/Creatinine Ratio (test code = 3097-3) 8 6-25 [facility] HospitalEstimat Glomerular Filtration Rate 2018-10-03 05:45:00* Test Item Value Reference Range Interpretation Comments Estimat Glomerular Filtration Rate (test code = 775797542) > 60 >60 Ranges were taken from the National Kidney Disease Education Program and the [facility] Kidney Foundation literature.Reference ranges:60 or greater: Tylgjc12-83 ( for 3 consecutive months): Chronic kidney disease 15 or less: Kidney failureNacogdoches Memorial HospitalGlucose Fdmca7384-90-57 05:45:00* Test Item Value Reference Range Interpretation Comments Glucose Level (test code = KPU7980) 94 74-118 [facility] HospitalCalcium Hnnyb2534-33-28 05:45:00* Test Item Value Reference Range Interpretation Comments Calcium Level (test code = 19515-5) 9.0 8.4-10.2 [facility] Bpdgs5618-81-13 05:45:00* Test Item Value Reference Range Interpretation Comments Sodium Level (test code = 2951-2) 128 136-145 L [facility] HospitalPotassium Hdhde7469-58-58 05:45:00* Test Item Value Reference Range Interpretation Comments Potassium Level (test code = 2823-3) 4.4 3.5-5.1 [facility] HospitalChloride Vuexl1555-96-51 05:45:00* Test Item Value Reference Range Interpretation Comments Chloride Level (test code = 2075-0) 100 98-107 [facility] HospitalCarbon Dioxide Cykoy3127-66-11 05:45:00* Test Item Value Reference Range Interpretation Comments Carbon Dioxide Level (test code = 2028-9) 21 22-29 L [facility] HospitalAnion Ixi1000-37-56 05:45:00* Test Item Value Reference Range Interpretation Comments Anion Gap (test code = 04399-5) 11.4 8-16 [facility] HospitalBlood Urea Ixrxekuq2839-84-35 05:45:00* Test Item Value Reference Range Interpretation Comments Blood Urea Nitrogen (test code = 3094-0) < 5 7-26 L [facility] HospitalCreatinine2019-05-01 05:45:00* Test Item Value Reference Range Interpretation Comments Creatinine (test code = 2160-0) 0.65 0.57-1.11 [facility] HospitalBUN/Creatinine Alwqg9229-71-08 05:45:00* Test Item Value Reference Range Interpretation Comments BUN/Creatinine Ratio (test code = 3097-3) 8 6-25 [facility] HospitalEstimat Glomerular Filtration Rate 2018-10-03 05:45:00* Test Item Value Reference Range Interpretation Comments Estimat Glomerular Filtration Rate (test code = 977799682) > 60 >60 Ranges were taken from the National Kidney Disease Education Program and the [facility] [employer] literature.Reference ranges:60 or greater: Najdzf28-07 ( for 3 consecutive months): Chronic kidney disease 15 or less: Kidney failureNacogdoches Memorial HospitalGlucose Gwaik3438-41-13 05:45:00* Test Item Value Reference Range Interpretation Comments Glucose Level (test code = WRM8162) 94 74-118 [facility] HospitalCalcium Fydpf3386-29-64 05:45:00* Test Item Value Reference Range Interpretation Comments Calcium Level (test code = 52856-1) 9.0 8.4-10.2 [facility] HospitalHemoglobin2019-05-01 05:37:00* Test Item Value Reference Range Interpretation Comments Hemoglobin (test code = 80095-4) 10.6 12.0-16.0 L [facility] HospitalHematocrit2019-05-01 05:37:00* Test Item Value Reference Range Interpretation Comments Hematocrit (test code = 4544-3) 32.0 34.2-44.1 L [facility] HospitalHemoglobin2019-05-01 05:37:00* Test Item Value Reference Range Interpretation Comments Hemoglobin (test code = 35774-2) 10.6 12.0-16.0 L [facility] HospitalHematocrit2019-05-01 05:37:00* Test Item Value Reference Range Interpretation Comments Hematocrit (test code = 4544-3) 32.0 34.2-44.1 L [facility] Eprvydixy6987-38-03 05:23:00* Test Item Value Reference Range Interpretation Comments Total Bilirubin (test code = 1975-2) 0.7 0.2-1.2 [facility] HospitalAspartate Amino Transf (AST/SGOT) 2018-10-01 05:23:00* Test Item Value Reference Range Interpretation Comments Aspartate Amino Transf (AST/SGOT) (test code = Aspartate Amino Transf (AST/SGOT)) 26 5-34 [facility] HospitalAlanine Aminotransferase (ALT/SGPT) 2018-10-01 05:23:00* Test Item Value Reference Range Interpretation Comments Alanine Aminotransferase (ALT/SGPT) (test code = 1742-6) 31 0-55 [facility] Zfczjtn3732-31-50 05:23:00* Test Item Value Reference Range Interpretation Comments Total Protein (test code = 2885-2) 5.9 6.5-8.1 L [facility] HospitalAlbumin2019-04-29 05:23:00* Test Item Value Reference Range Interpretation Comments Albumin (test code = 1751-7) 3.3 3.5-5.0 L [facility] HospitalGlobulin2019-04-29 05:23:00* Test Item Value Reference Range Interpretation Comments Globulin (test code = 10744-5) 2.6 2.3-3.5 [facility] HospitalAlbumin/Globulin Vbljv3564-93-58 05:23:00 * Test Item Value Reference Range Interpretation Comments Albumin/Globulin Ratio (test code = 1759-0) 1.3 0.8-2.0 [facility] HospitalAlkaline Tnrrjuwwhmg4835-48-02 05:23:00* Test Item Value Reference Range Interpretation Comments Alkaline Phosphatase (test code = 6768-6) 69 40-150 [facility] Ftlmgpbbl1589-92-87 05:23:00* Test Item Value Reference Range Interpretation Comments Total Bilirubin (test code = 1975-2) 0.7 0.2-1.2 [facility] HospitalAspartate Amino Transf (AST/SGOT) 2018-10-01 05:23:00* Test Item Value Reference Range Interpretation Comments Aspartate Amino Transf (AST/SGOT) (test code = Aspartate Amino Transf (AST/SGOT)) 26 5-34 [facility] HospitalAlanine Aminotransferase (ALT/SGPT) 2018-10-01 05:23:00* Test Item Value Reference Range Interpretation Comments Alanine Aminotransferase (ALT/SGPT) (test code = 1742-6) 31 0-55 [facility] HospitalTotal Zhcwmjz5861-19-76 05:23:00* Test Item Value Reference Range Interpretation Comments Total Protein (test code = 2885-2) 5.9 6.5-8.1 L [facility] HospitalAlbumin2019-04-29 05:23:00* Test Item Value Reference Range Interpretation Comments Albumin (test code = 1751-7) 3.3 3.5-5.0 L [facility] HospitalGlobulin2019-04-29 05:23:00* Test Item Value Reference Range Interpretation Comments Globulin (test code = 29761-3) 2.6 2.3-3.5 [facility] HospitalAlbumin/Globulin Ackyc4146-85-42 05:23:00 * Test Item Value Reference Range Interpretation Comments Albumin/Globulin Ratio (test code = 1759-0) 1.3 0.8-2.0 [facility] HospitalAlkaline Ovtpfgbmfus6612-46-62 05:23:00* Test Item Value Reference Range Interpretation Comments Alkaline Phosphatase (test code = 6768-6) 69 40-150 [facility] HospitalUrine SHF5869-22-15 02:30:00* Test Item Value Reference Range Interpretation Comments Urine WBC (test code = 5821-4) 0-5 0-5 [facility] HospitalU[facility] OBU6870-88-69 02:30:00* Test Item Value Reference Range Interpretation Comments Urine RBC (test code = 27549-3) 0-5 0-5 [facility] HospitalU[facility] Tackgpqr5542-35-99 02:30:00* Test Item Value Reference Range Interpretation Comments Urine Bacteria (test code = 41002-2) NONE NONE [facility] HospitalUrine Epithelial Oqlzn7545-69-37 02:30:00 * Test Item Value Reference Range Interpretation Comments Urine Epithelial Cells (test code = 05179-4) RARE NONE [facility] HospitalUrine Lswpu1822-24-15 02:24:00* Test Item Value Reference Range Interpretation Comments Urine Color (test code = 5778-6) YELLOW YELLOW [facility] HospitalUrine Otasxjg6572-75-28 02:24:00* Test Item Value Reference Range Interpretation Comments Urine Clarity (test code = 88876-2) CLEAR CLEAR [facility] Specific Bswdhxo0246-25-85 02:24:00 * Test Item Value Reference Range Interpretation Comments Urine Specific [place] (test code = 5811-5) 1.005 1.010-1.02 5 L [facility] HospitalUrine bQ7061-57-93 02:24:00* Test Item Value Reference Range Interpretation Comments Urine pH (test code = 31553-3) 7 5-7 [facility] Hospital[facility] Leukocyte Epdgfyiu9894-51-52 02:24:00* Test Item Value Reference Range Interpretation Comments Urine Leukocyte Esterase (test code = 5799-2) NEGATIVE NEGATIVE [facility] HospitalU[facility] Mqayjra1751-37-82 02:24:00* Test Item Value Reference Range Interpretation Comments Urine Nitrite (test code = 80419-2) NEGATIVE NEGATIVE [facility] HospitalU[facility] Xprknmo5811-04-69 02:24:00* Test Item Value Reference Range Interpretation Comments Urine Protein (test code = 5804-0) NEGATIVE NEGATIVE [facility] HospitalUrine Glucose (UA)2018-10-01 02:24:00* Test Item Value Reference Range Interpretation Comments Urine Glucose (UA) (test code = 2349-9) NEGATIVE NEGATIVE [facility] HospitalU[facility] Kvtadan4391-14-31 02:24:00* Test Item Value Reference Range Interpretation Comments Urine Ketones (test code = 98180-9) 2+ NEGATIVE H [facility] HospitalUrine Xsicewrryspi2917-21-15 02:24:00* Test Item Value Reference Range Interpretation Comments Urine Urobilinogen (test code = 58638-4) 0.2 0.2-1 [facility] Hospital[facility] Pzlmfiieb0481-68-49 02:24:00* Test Item Value Reference Range Interpretation Comments Urine Bilirubin (test code = 1978-6) NEGATIVE NEGATIVE [facility] HospitalU[facility] Cncxn7394-57-35 02:24:00* Test Item Value Reference Range Interpretation Comments Urine Blood (test code = 39275-8) NEGATIVE NEGATIVE [facility] HospitalCT ABDOMEN/PELVIS T2356-63-22 01:31:00 [facility] [address] [place] [address] Patient Name: CLARI WALTON MR #: [id number] : 1945 Age/Sex: 73/F Req #: [id number] Adm Physician: Ordered by: SHERIE SIGALA MD Report #: [id number] Location: ER Room/Bed: Procedure: 0429-[address]/CT ABDOMEN/PELVIS W Exam Date: 10/01/18 Exam Ti me: 0123 REPORT STATUS: Signed E XAM: CT Abdomen and Pelvis WITH contrast INDICATION: Rectal bleeding, nausea and diarrhea. Colonoscopy with polypectomy about 2 weeks ago. COMPARISON: N one available in PACS at this time. TECHNIQUE: Abdomen and pelvis were scanned utilizing a multidetector helical scanner from the lung base to the pubic sym physis after administration of IV contrast. Coronal and sagittal reformations were obtained. Routine protocol was performed. Scan was performed when during portal venous phase. IV CONTRAST: 100 cc Isovue 300 ORAL CONTRAST: Gastrografin and water mixture. RADIATION DOSE: T otal DLP: 750.11 mGy*cm Estimated effective dose: (DLP x 0.015 x size factor) mSv COMPLICATIONS: None FINDINGS: LINES and TUBES: None. LOWER THORAX: Unremarkable HEPATOBILIARY: 6.3 mm low-at tenuation lesion in the posterior hepatic dome on image 9, most likely a tiny cyst. No biliary ductal dilation. GALLBLADDER: No radio-opaque stones or s ludge. No wall thickening. SPLEEN: No splenomegaly. PANCREAS: No foc al masses or ductal dilatation. ADRENALS: No adrenal nodules KID NEYS/URETERS: Kidneys enhance symmetrically. No hydronephrosis. No cystic or solid mass lesions. No stones. GI TRACT: No abnormal distention, or eviden ce of bowel obstruction. Minimal diffuse wall thickening of the distal rectum may be related to underdistention, otherwise no wall thickening. Moderate vol ume of stool within the colon. Appendix is not visualized, status post append ectomy. PELVIC ORGANS/BLADDER: The uterus is absent. 2.1 cm cyst in the ri ght ovary. LYMPH NODES: No lymphadenopathy. VESSELS: There is mild ath erosclerotic disease in the aorta and major arterial branches. PERITONEUM / RETROPERITONEUM: No free air or fluid. BONES: Multilevel degenerative di sc disease, particularly at L2-L3. Mild retrolisthesis of L2 in relation to L3 . SOFT TISSUES: Unremarkable. IMPRESSION: 1. No acute abdominal pelvic abnormality. 2. Minimal nonspecific wall thickening of the d istal rectum. Signed by: Dr. Shaye Mi M.D. on 10/01/2018 2:04 A M Dictated By: ANAHI MI MD, MD 3 Transcribed By: ARNOLD on 10/01/18203 COPY TO: SHERIE SIGALA MD Prothrombin [id number] 23:50:00* Test Item Value Reference Range Interpretation Comments Prothrombin Time (test code = 5902-2) 12.1 11.9-14.5 [facility]Prothromb [facility] International Ratio 2018-09-30 23:50:00* Test Item Value Reference Range Interpretation Comments Prothromb Time International Ratio (test code = 6301-6) 0.85 Oral Anticoagulant Therapy INR Values:1. Low Intensity Therapy 1.5 - 2.02 . Moderate Intensity Therapy 2.0 - 3.03. High Intensity Therapy(1) 2.5 - 3. 54. High Intensity Therapy(2) 3.0 - 4.05. Panic Value INR > 5.0 [facility] HospitalActivated Partial Thromboplast Time 2018-09-30 23:50:00* Test Item Value Reference Range Interpretation Comments Activated Partial Thromboplast Time (test code = 62063-9) 28.1 23.8-35.5 [facility] HospitalProthrombin [id number] 23:50:00* Test Item Value Reference Range Interpretation Comments Prothrombin Time (test code = 5902-2) 12.1 11.9-14.5 [facility] HospitalProthromb Time International Ratio 2018-09-30 23:50:00* Test Item Value Reference Range Interpretation Comments Prothromb Time International Ratio (test code = 6301-6) 0.85 Oral Anticoagulant Therapy INR Values:1. Low Intensity Therapy 1.5 - 2.02 . Moderate Intensity Therapy 2.0 - 3.03. High Intensity Therapy(1) 2.5 - 3. 54. High Intensity Therapy(2) 3.0 - 4.05. Panic Value INR > 5.0 [facility] HospitalActivated Partial Thromboplast Time 2018-09-30 23:50:00* Test Item Value Reference Range Interpretation Comments Activated Partial Thromboplast Time (test code = 74359-6) 28.1 23.8-35.5 [facility] HospitalWhite Blood [id number] 23:39:00* Test Item Value Reference Range Interpretation Comments White Blood Count (test code = 6690-2) 11.16 4.8-10.8 H [facility] HospitalRed Blood [id number] 23:39:00* Test Item Value Reference Range Interpretation Comments Red Blood Count (test code = 789-8) 4.32 3.6-5.1 [facility] HospitalMean Corpuscular [id number] 23:39:00* Test Item Value Reference Range Interpretation Comments Mean Corpuscular Volume (test code = 787-2) 85.2 81-99 [facility] HospitalMean Corpuscular [id number] 23:39:00* Test Item Value Reference Range Interpretation Comments Mean Corpuscular Hemoglobin (test code = 785-6) 30.3 28-32 [facility] HospitalMean Corpuscular Hemoglobin Concent 2018-09-30 23:39:00* Test Item Value Reference Range Interpretation Comments Mean Corpuscular Hemoglobin Concent (test code = 786-4) 35.6 31-35 [facility] HospitalRed Cell Distribution [id number] 23:39:00* Test Item Value Reference Range Interpretation Comments Red Cell Distribution Width (test code = 49844-8) 12.9 11.7 -14.4 [facility] HospitalPlatelet [id number] 23:39:00* Test Item Value Reference Range Interpretation Comments Platelet Count (test code = 777-3) 429 140-360 [facility] HospitalNeutrophils (%) (Auto)2018-09-30 23:39:00 * Test Item Value Reference Range Interpretation Comments Neutrophils (%) (Auto) (test code = 08407-7) 71.5 38.7-80.0 [facility] HospitalLymphocytes (%) (Auto)2018-09-30 23:39:00 * Test Item Value Reference Range Interpretation Comments Lymphocytes (%) (Auto) (test code = 736-9) 18.1 18.0-39.1 [facility] HospitalMonocytes (%) (Auto)2018-09-30 23:39:00* Test Item Value Reference Range Interpretation Comments Monocytes (%) (Auto) (test code = 5905-5) 7.8 4.4-11.3 [facility] HospitalEosinophils (%) (Auto)2018-09-30 23:39:00 * Test Item Value Reference Range Interpretation Comments Eosinophils (%) (Auto) (test code = 713-8) 0.1 0.0-6.0 [facility] HospitalBasophils (%) (Auto)2018-09-30 23:39:00* Test Item Value Reference Range Interpretation Comments Basophils (%) (Auto) (test code = 706-2) 0.9 0.0-1.0 [facility] HospitalIM GRANULOCYTES %2018-09-30 23:39:00* Test Item Value Reference Range Interpretation Comments IM GRANULOCYTES % (test code = IM GRANULOCYTES %) 1.6 0.0- 1.0 [facility] HospitalNeutrophils # (Auto)2018-09-30 23:39:00* Test Item Value Reference Range Interpretation Comments Neutrophils # (Auto) (test code = 751-8) 8.0 2.1-6.9 [facility] HospitalLymphocytes # (Auto)2018-09-30 23:39:00* Test Item Value Reference Range Interpretation Comments Lymphocytes # (Auto) (test code = 51627-6) 2.0 1.0-3.2 [facility] HospitalMonocytes # (Auto)2018-09-30 23:39:00* Test Item Value Reference Range Interpretation Comments Monocytes # (Auto) (test code = 742-7) 0.9 0.2-0.8 [facility] HospitalEosinophils # (Auto)2018-09-30 23:39:00* Test Item Value Reference Range Interpretation Comments Eosinophils # (Auto) (test code = 711-2) 0.0 0.0-0.4 [facility] HospitalBasophils # (Auto)2018-09-30 23:39:00* Test Item Value Reference Range Interpretation Comments Basophils # (Auto) (test code = 704-7) 0.1 0.0-0.1 [facility] HospitalAbsolute Immature Granulocyte (auto 2018-09-30 23:39:00* Test Item Value Reference Range Interpretation Comments Absolute Immature Granulocyte (auto (atif t code = Absolute Immature Granulocyte (auto) 0.18 0-0.1 [facility] HospitalWhite Blood [id number] 23:39:00* Test Item Value Reference Range Interpretation Comments White Blood Count (test code = 6690-2) 11.16 4.8-10.8 [facility] HospitalRed Blood [id number] 23:39:00* Test Item Value Reference Range Interpretation Comments Red Blood Count (test code = 789-8) 4.32 3.6-5.1 [facility] HospitalMean Corpuscular [id number] 23:39:00* Test Item Value Reference Range Interpretation Comments Mean Corpuscular Volume (test code = 787-2) 85.2 81-99 [facility] HospitalMean Corpuscular Jgxnmamufv6701-30-11 23:39:00* Test Item Value Reference Range Interpretation Comments Mean Corpuscular Hemoglobin (test code = 785-6) 30.3 28-32 [facility] HospitalMean Corpuscular Hemoglobin Concent 2018-09-30 23:39:00* Test Item Value Reference Range Interpretation Comments Mean Corpuscular Hemoglobin Concent (test code = 786-4) 35.6 31-35 [facility] HospitalRed Cell Distribution [id number] 23:39:00* Test Item Value Reference Range Interpretation Comments Red Cell Distribution Width (test code = 35136-5) 12.9 11.7 -14.4 [facility] HospitalPlatelet [id number] 23:39:00* Test Item Value Reference Range Interpretation Comments Platelet Count (test code = 777-3) 429 140-360 [facility] HospitalNeutrophils (%) (Auto)2018-09-30 23:39:00 * Test Item Value Reference Range Interpretation Comments Neutrophils (%) (Auto) (test code = 42504-3) 71.5 38.7-80.0 [facility] HospitalLymphocytes (%) (Auto)2018-09-30 23:39:00 * Test Item Value Reference Range Interpretation Comments Lymphocytes (%) (Auto) (test code = 736-9) 18.1 18.0-39.1 [facility] HospitalMonocytes (%) (Auto)2018-09-30 23:39:00* Test Item Value Reference Range Interpretation Comments Monocytes (%) (Auto) (test code = 5905-5) 7.8 4.4-11.3 [facility] HospitalEosinophils (%) (Auto)2018-09-30 23:39:00 * Test Item Value Reference Range Interpretation Comments Eosinophils (%) (Auto) (test code = 713-8) 0.1 0.0-6.0 [facility] HospitalBasophils (%) (Auto)2018-09-30 23:39:00* Test Item Value Reference Range Interpretation Comments Basophils (%) (Auto) (test code = 706-2) 0.9 0.0-1.0 [facility] HospitalIM GRANULOCYTES %2018-09-30 23:39:00* Test Item Value Reference Range Interpretation Comments IM GRANULOCYTES % (test code = IM GRANULOCYTES %) 1.6 0.0- 1.0 [facility] HospitalNeutrophils # (Auto)2018-09-30 23:39:00* Test Item Value Reference Range Interpretation Comments Neutrophils # (Auto) (test code = 751-8) 8.0 2.1-6.9 [facility] HospitalLymphocytes # (Auto)2018-09-30 23:39:00* Test Item Value Reference Range Interpretation Comments Lymphocytes # (Auto) (test code = 06334-6) 2.0 1.0-3.2 [facility] HospitalMonocytes # (Auto)2018-09-30 23:39:00* Test Item Value Reference Range Interpretation Comments Monocytes # (Auto) (test code = 742-7) 0.9 0.2-0.8 [facility] HospitalEosinophils # (Auto)2018-09-30 23:39:00* Test Item Value Reference Range Interpretation Comments Eosinophils # (Auto) (test code = 711-2) 0.0 0.0-0.4 [facility] HospitalBasophils # (Auto)2018-09-30 23:39:00* Test Item Value Reference Range Interpretation Comments Basophils # (Auto) (test code = 704-7) 0.1 0.0-0.1 [facility] HospitalAbsolute Immature Granulocyte (auto 2018-09-30 23:39:00* Test Item Value Reference Range Interpretation Comments Absolute Immature Granulocyte (auto (atif t code = Absolute Immature Granulocyte (auto) 0.18 0-0.1 [facility] Tylertool [id number] 12:20:00* Test Item Value Reference Range Interpretation Comments Stool Calprotectin (test code = 53552-7) <16 0-120 Concentration Interpretation Follow-Up<16 - 50 ug/g Normal None>50 -120 ug/g Borderline Re-evaluate in 4-6 weeks >120 ug/g Abnormal Repeat as clinically indicatedPerformed at: [address] [id number] Director: Wilver Lockwood MD, Phone: [phone] Health [facility] Campus Tylertool [id number] 12:20:00* Test Item Value Reference Range Interpretation Comments Stool Calprotectin (test code = 95562-0) <16 0-120 Concentration Interpretation Follow-Up<16 - 50 ug/g Normal None>50 -120 ug/g Borderline Re-evaluate in 4-6 weeks >120 ug/g Abnormal Repeat as clinically indicatedPerformed at: [address] [id number] Director: Wilver Lockwood MD, Phone: [phone] Memorial HospitalClostridium Difficile Toxin A & [id number] 12:09:00* Test Item Value Reference Range Interpretation Comments Clostridium Difficile Toxin A & B (test code = 489258796) NEGATIVE NEGATIVE Testing on stool aspirate specimens is outside deportation examiner claims since specime n type not validated on this assay.[facility] Clostridium Difficile Toxin A & [id number] 12:09:00* Test Item Value Reference Range Interpretation Comments Clostridium Difficile Toxin A & B (test code = 843876909) NEGATIVE NEGATIVE Testing on stool aspirate specimens is outside deportation examiner claims since specime n type not validated on this assay.[facility] Tylertool Lactoferrin (LAB)2018-09-17 16:31:00* Test Item Value Reference Range Interpretation Comments Stool Lactoferrin (LAB) (test code = 08096-5) NEGATIVE NEGATIVE Testing on stool aspirate specimens is outside deportation examiner claims since specime n type not validated on this assay.[facility] Tylertool Lactoferrin (LAB)2018-09-17 16:31:00* Test Item Value Reference Range Interpretation Comments Stool Lactoferrin (LAB) (test code = 01503-7) NEGATIVE NEGATIVE Testing on stool aspirate specimens is outside deportation examiner claims since specime n type not validated on this assay.[facility] HospitalBREAST ULTRASOUND [id number] 13:33:04 - DIAG MAMM BILATERAL CIRO CAD DIGITALBILATERAL DIGITAL DIAGNOSTIC MAMMOGRAM 3D/2D WITH CAD: 06/18/2018CLINICAL: Dense breasts. Digital breast tomosynthesis was performed in addition to routine CC and MLO views. Current mammographic images were evaluated by either a [employer] M-Vu or a [employer] ImageChecker CAD (computer aided detection system). Comparison is made to exams dated 06/19/2017 mammogram, 04/26/2016 mammogram, and 03/10/2015 mammogram - [facility]. The tissue of both breasts is heterogeneously dense. This may lower the sensitivity of mammography. There are benign calcifications in both breasts. There is a benign cyst in the right breast and benign nodules in the left breast. No suspicious mass, architectural distortion, malignant type calcification, or lymph node abnormality detected. INCOMPLETE ASSESSMENT: ADDITIONAL IMAGING EVALUATION R ECOMMENDEDUltrasound pending for additional evaluation. There is no mammographi c evidence of malignancy.- BREAST ULTRASOUND BILATERALULTRASOUND OF BOTH BREASTS AND BOTH AXILLA: 06/18/2018Comparison is made to exams dated 06/19/2017 mammogra m, 04/26/2016 mammogram, and 03/10/2015 mammogram - [facility]. Real-time ultrasound of both breasts and both axilla was performed. No abnormal ities were seen sonographically in either axilla. Benign cysts and dilated duct s were seen bilaterally. No solid masses were seen. Clinical breast exam was u nremarkable. IMPRESSION: BENIGN There is no sonographic evidence of malignancy. Patient has been informed that she has areas of dense breast tissue that could make it difficult to find a small cancer. A screening mammogram and supplemental ultrasound for dense breast tissue is recommended in 1 year.Mimi Navarro M.D. dm/:06/19/2018 13:33:04 copy to: Jasmina Porras M.D., ph: [phone], fax: [phone] Technologist: Khushbu Cahtman , [facility]- letter sent: BIRADS 1-2 Combo FU Letter Mammogram BI-RADS: 0 Indeterminate Ultrasound BI-RADS: 2 BenignDIAG MAMM BILATERAL CIRO CAD [id number] 13:33:04 - DIAG MAMM BILATERAL CIRO CAD DIGITALBILATERAL DIGITAL DIAGNOSTIC MAMMOGRAM 3D/2D WITH CAD: 06/18/2018CLINICAL: Dense breasts. Digital breast tomosynthesis was performed in addition to routine CC and MLO views. Current mammographic images were evaluated by either a Music[employer] M-Vu or a [employer] ImageChecker CAD (computer aided detection system). Comparison is made to exams dated 06/19/2017 mammogram, 04/26/2016 mammogram, and [facility] The tissue of both breasts is heterogeneously dense. This may lower the sensitivity of mammography. There are benign calcifications in both breasts. There is a benign cyst in the right breast and benign nodules in the left breast. No suspicious mass, architectural distortion, malignant type calcification, or lymph node abnormality detected. INCOMPLETE ASSESSMENT: ADDITIONAL IMAGING EVALUATION RECOMMENDEDUltrasound pending for additional evaluation. There is no mammographic evidence of malignancy.- BREAST ULTRASOUND BILATERALULTRASOUND OF BOTH BREASTS AND BOTH AXILLA: 06/18/2018Comparison is made to exams dated 06/19/2017 mammogram, 04/26/2016 mammogram, and [facility] Real-time ultrasound of both breasts and both axilla was performed. No abnormalities were seen sonographically in either axilla. Benign cysts and dilated ducts were seen bilaterally. No solid masses were seen. Clinical breast exam was unremarkable. IMPRESSION: BENIGN There is no sonographic evidence of malignancy. Patient has been informed that she has areas of dense breast tissue that could make it difficult to find a small cancer. A screening mammogram and supplemental ultrasound for dense breast tissue is recommended in 1 year.Mimi Navarro M.D. dm/:06/19/2018 13:33:04 copy to: Jasmina Porras M.D., ph: [phone], fax: [phone] Technologist: Khushbu Chatman , [facility] sent: BIRADS 1-2 Combo FU Letter Mammogram BI-RADS: 0 Indeterminate Ultrasound BI-RADS: 2 BenignCBC WITH MANUAL DIFF *WW*2016-09-23 06:58:00* Test Item Value Reference Range Interpretation Comments WBC (test code = WBC) 9.3 10\S\3/uL 4.5-11.0 RBC (test code = RBC) 3.41 10\S\6/uL 3.80-5.80 L HGB (test code = HBG) 9.9 g/dL 12.0-15.5 L HCT (test code = HCT) 29.0 % 35.0-44.0 L MCV (test code = MCV) 85.0 fL 81.0-99.0 MCH (test code = MCH) 29.0 pg 27.0-31.0 MCHC (test code = MCHC) 34.1 g/dL 32.0-36.0 RDW (test code = RDW) 15.9 % 11.5-14.5 H PLT (test code = PLT) 266 10\S\3/uL 130-400 MPV (test code = MPV) 8.9 fL 9.4-12.4 L NEUTROP # (test code = NE#) 6.8 10\S\3/uL 1.6-8.0 LYMPH # (test code = LY#) 1.2 10\S\3/uL 1.1-3.5 MONOCYTE # (test code = MO#) 0.7 10\S\3/uL 0.0-1.1 EOSINOPH # (test code = EO#) 0.4 10\S\3/uL 0.0-0.7 BASOPHIL # (test code = BA#) 0.1 10\S\3/uL 0.0-0.3 IG # (test code = IG#) 0.16 10\S\3/uL 0.00-0.06 H NRBC # (test code = NRBC#) 0.00 10\S\3/uL 0.00-0.01 NEUTROPH % (test code = NE%) 73.1 % 35.0-73.0 H LYMPH % (test code = LY%) 13.4 % 20.0-55.0 L MONO % (test code = MO%) 7.2 % 2.5-10.0 EOSINOPH % (test code = EO%) 4.0 % 0.0-5.0 BASOPHIL % (test code = BA%) 0.6 % 0.0-2.0 IG % (test code = IG%) 1.7 % 0.0-0.8 H NRBC% (test code = NRBC%) 0.0 % 0.0-0.2 MAN DIFF (test code = HMDIFF) MANUAL DIFFERENTIAL SEG (test code = SEG) 74 % 42-75 BAND (test code = BAND) 3 % 0-8 LYMPH (test code = LYMPH) 14 % 20-51 L MONO (test code = MONO) 5 % 3-11 EOS (test code = EOS) 3 % 0-10 BASO (test code = BASO) 1 % 0-2 RBC MORPH (test code = RBCMORN) NORMAL NORMAL PLT EST (test code = PLTEST) ADEQUATE ADEQUATE PLT MORPH (test code = PLTMOR) NORMAL (1.5-3 um) NORMAL COMPREHENSIVE METABOLIC MARIN *WW*2016-09-23 06:29:00* Test Item Value Reference Range Interpretation Comments GLUCOSE (test code = 06D) 106 mg/dL 75-100 H SODIUM (test code = 01A) 135 mmol/L 136-145 L POTASSIUM (test code = 01B) 3.5 mmol/L 3.6-5.1 L CHLORIDE (test code = 04A) 100 mmol/L 98-107 CO2 (test code = 02A) 28 mmol/L 22-32 ANION GAP (test code = ANG) 10.5 mmol/L BUN (test code = 05D) 7 mg/dL 7-18 CREATININE (test code = 03E) 0.7 mg/dL 0.4-1.1 BUN/CREA R (test code = BCR) 10 12-20 L CALCIUM (test code = 09D) 8.4 mg/dL 8.3-9.5 BILI TOTAL (test code = 11A) 0.5 mg/dL 0.2-1.0 PROTEIN (test code = 07D) 6.0 g/dL 6.4-8.2 L ALBUMIN (test code = 08D) 2.6 g/dL 3.5-4.8 L GLOBULIN (test code = GLB) 3.4 g/dL 1.5-3.8 ALB/GLOB (test code = AGRR) 0.8 1.0-2.6 L ALK PHOS (test code = 35A) 75 IU/L 42-121 AST (test code = 30A) 79 IU/L <=42 H ALT (test code = 31A) 19 IU/L <=78 CBC WITH MANUAL DIFF *WW*2016-09-22 07:12:00* Test Item Value Reference Range Interpretation Comments WBC (test code = WBC) 9.4 10\S\3/uL 4.5-11.0 RBC (test code = RBC) 2.62 10\S\6/uL 3.80-5.80 L HGB (test code = HBG) 7.8 g/dL 12.0-15.5 L HCT (test code = HCT) 23.7 % 35.0-44.0 LL MCV (test code = MCV) 90.5 fL 81.0-99.0 MCH (test code = MCH) 29.8 pg 27.0-31.0 MCHC (test code = MCHC) 32.9 g/dL 32.0-36.0 RDW (test code = RDW) 14.5 % 11.5-14.5 PLT (test code = PLT) 245 10\S\3/uL 130-400 MPV (test code = MPV) 8.3 fL 9.4-12.4 L NEUTROP # (test code = NE#) 6.1 10\S\3/uL 1.6-8.0 LYMPH # (test code = LY#) 1.8 10\S\3/uL 1.1-3.5 MONOCYTE # (test code = MO#) 0.9 10\S\3/uL 0.0-1.1 EOSINOPH # (test code = EO#) 0.4 10\S\3/uL 0.0-0.7 BASOPHIL # (test code = BA#) 0.1 10\S\3/uL 0.0-0.3 IG # (test code = IG#) 0.10 10\S\3/uL 0.00-0.06 H NRBC # (test code = NRBC#) 0.00 10\S\3/uL 0.00-0.01 NEUTROPH % (test code = NE%) 65.2 % 35.0-73.0 LYMPH % (test code = LY%) 19.1 % 20.0-55.0 L MONO % (test code = MO%) 9.8 % 2.5-10.0 EOSINOPH % (test code = EO%) 3.9 % 0.0-5.0 BASOPHIL % (test code = BA%) 0.9 % 0.0-2.0 IG % (test code = IG%) 1.1 % 0.0-0.8 H NRBC% (test code = NRBC%) 0.0 % 0.0-0.2 MAN DIFF (test code = HMDIFF) MANUAL DIFFERENTIAL SEG (test code = SEG) 68 % 42-75 BAND (test code = BAND) 2 % 0-8 LYMPH (test code = LYMPH) 15 % 20-51 L MONO (test code = MONO) 11 % 3-11 EOS (test code = EOS) 3 % 0-10 BASO (test code = BASO) 1 % 0-2 RBC MORPH (test code = RBCMORN) NORMAL NORMAL PLT EST (test code = PLTEST) ADEQUATE ADEQUATE PLT MORPH (test code = PLTMOR) NORMAL (1.5-3 um) NORMAL COMPREHENSIVE METABOLIC MARIN *WW*2016-09-22 07:09:00* Test Item Value Reference Range Interpretation Comments GLUCOSE (test code = 06D) 120 mg/dL 75-100 H SODIUM (test code = 01A) 133 mmol/L 136-145 L POTASSIUM (test code = 01B) 2.7 mmol/L 3.6-5.1 LL CHLORIDE (test code = 04A) 98 mmol/L 98-107 CO2 (test code = 02A) 27 mmol/L 22-32 ANION GAP (test code = ANG) 10.7 mmol/L BUN (test code = 05D) 7 mg/dL 7-18 CREATININE (test code = 03E) 0.6 mg/dL 0.4-1.1 BUN/CREA R (test code = BCR) 12 12-20 CALCIUM (test code = 09D) 8.3 mg/dL 8.3-9.5 BILI TOTAL (test code = 11A) 0.4 mg/dL 0.2-1.0 PROTEIN (test code = 07D) 5.6 g/dL 6.4-8.2 L ALBUMIN (test code = 08D) 2.5 g/dL 3.5-4.8 L GLOBULIN (test code = GLB) 3.1 g/dL 1.5-3.8 ALB/GLOB (test code = AGRR) 0.8 1.0-2.6 L ALK PHOS (test code = 35A) 68 IU/L 42-121 AST (test code = 30A) 85 IU/L <=42 H ALT (test code = 31A) 16 IU/L <=78 BASIC METABOLIC PANEL 2016-09-21 05:43:00* Test Item Value Reference Range Interpretation Comments GLUCOSE (test code = 06D) 110 mg/dL 75-100 H SODIUM (test code = 01A) 133 mmol/L 136-145 L POTASSIUM (test code = 01B) 3.7 mmol/L 3.6-5.1 CHLORIDE (test code = 04A) 96 mmol/L 98-107 L CO2 (test code = 02A) 29 mmol/L 22-32 ANION GAP (test code = ANG) 11.7 mmol/L BUN (test code = 05D) 12 mg/dL 7-18 CREATININE (test code = 03E) 1.0 mg/dL 0.4-1.1 BUN/CREA R (test code = BCR) 12 12-20 CALCIUM (test code = 09D) 8.2 mg/dL 8.3-9.5 L CBC (INCLUDES AUTOMATED DIFFERENTIAL)*[id number] 05:17:00* Test Item Value Reference Range Interpretation Comments WBC (test code = WBC) 6.2 10\S\3/uL 4.5-11.0 RBC (test code = RBC) 2.91 10\S\6/uL 3.80-5.80 L HGB (test code = HBG) 8.7 g/dL 12.0-15.5 L HCT (test code = HCT) 26.4 % 35.0-44.0 L MCV (test code = MCV) 90.7 fL 81.0-99.0 MCH (test code = MCH) 29.9 pg 27.0-31.0 MCHC (test code = MCHC) 33.0 g/dL 32.0-36.0 RDW (test code = RDW) 15.0 % 11.5-14.5 H PLT (test code = PLT) 206 10\S\3/uL 130-400 MPV (test code = MPV) 9.1 fL 9.4-12.4 L NEUTROP # (test code = NE#) 4.2 10\S\3/uL 1.6-8.0 LYMPH # (test code = LY#) 1.2 10\S\3/uL 1.1-3.5 MONOCYTE # (test code = MO#) 0.6 10\S\3/uL 0.0-1.1 EOSINOPH # (test code = EO#) 0.0 10\S\3/uL 0.0-0.7 BASOPHIL # (test code = BA#) 0.1 10\S\3/uL 0.0-0.3 IG # (test code = IG#) 0.06 10\S\3/uL 0.00-0.06 NRBC # (test code = NRBC#) 0.00 10\S\3/uL 0.00-0.01 NEUTROPH % (test code = NE%) 67.6 % 35.0-73.0 LYMPH % (test code = LY%) 19.8 % 20.0-55.0 L MONO % (test code = MO%) 10.0 % 2.5-10.0 EOSINOPH % (test code = EO%) 0.5 % 0.0-5.0 BASOPHIL % (test code = BA%) 1.1 % 0.0-2.0 IG % (test code = IG%) 1.0 % 0.0-0.8 H NRBC% (test code = NRBC%) 0.0 % 0.0-0.2 MANDIFF (test code = WMDIFF) NO NO RBC MORPH (test code = WRBCMOR) NORMAL C-ARM>1HR W IMAGES2016-09-20 13:46:01FluoroscopyLocation Code: [id number] HISTORY: Achilles tendon pathologyComments: Fluoroscopy was provided during Achilles tendon lengthening.Approximately fluoroscopy time was 1 minute 59 seconds.IMPRESSION: Fluoroscopy services provided. Please see operative report for fulldetails.BASIC METABOLIC PANEL 2016-09-20 07:33:00* Test Item Value Reference Range Interpretation Comments GLUCOSE (test code = 06D) 86 mg/dL 75-100 SODIUM (test code = 01A) 136 mmol/L 136-145 POTASSIUM (test code = 01B) 3.5 mmol/L 3.6-5.1 L CHLORIDE (test code = 04A) 97 mmol/L 98-107 L CO2 (test code = 02A) 32 mmol/L 22-32 ANION GAP (test code = ANG) 10.5 mmol/L BUN (test code = 05D) 19 mg/dL 7-18 H CREATININE (test code = 03E) 0.9 mg/dL 0.4-1.1 BUN/CREA R (test code = BCR) 21 12-20 H CALCIUM (test code = 09D) 9.5 mg/dL 8.3-9.5 CHEST 2 VIEWS [place] [address] Patient Name: CLARI WALTON MR #: [id number] : 1945 Age/Sex: 72/F Req #: [id number] Adm Physician: Ordered by: ROXANE PALACIO MD Report #: [id number] Location: OR Room/Bed: Procedure: [id number] DX/CHEST 2 VIEWS Exam Date: 08/08/17 Exam Time: 1448 REPORT STATUS: Signed PROCEDURE: Frontal and lateral views of the chest. COMPARISON: None. INDICATIONS: PRE-OPERATIVE CHEST X-RAY FOR CYSTOSCOPY FINDINGS: Lines/tubes: None. Lungs: The lungs are well inflated and clear. There is no evidence of pneumonia or pulmonary edema. Pleura: There is no pleural effusion or pneumothorax. Heart and mediastinum: The heart and the mediastinum are normal. Tortuous aorta with atherosclerotic calcification of the arch Bones: No acute bony abnormality. Fusion hardware noted in t he lower cervical and upper thoracic spine IMPRESSION: 1. No ac platinum cardiopulmonary abnormalities. Daniel Alonzo M.D. Dictat ed by: Daniel Alonzo M.D. on 08/08/2017 at 15:22 Electronically appr alla by: Daniel Alonzo M.D. on 08/08/2017 at 15:22 Dictat ed By: DANIEL ALONZO MD 1522 COPY TO: ROXANE PALACIO MD PELVIC (NON OB) WORKMAN OR F/U [place] [address] Patient Name: CLARI WALTON MR #: [id number] : 1945 Age/Sex: 71/F Req #: [id number] Adm Physician: REYNOLD MAK MD Ordered by: REYNOLD MAK MD Report #: [id number] Location: MED/SURG Room/Bed: [facility] Procedure: [id number] US/US PELVIC (NON OB) WORKMAN OR F/U Exam Date: Exam Time: REPORT STATUS: Signed PROCEDURE: US PELVIC (NON OB) WORKMAN OR F/U COMP ARISON: None. INDICATIONS: ANEMIA, UTI TECHNIQUE: Grayscale transverse a nd sagittal transabdominal images were obtained of the pelvis. FINDINGS : UTERUS: Status post hysterectomy. RIGHT OVARY: Nonvisualize d. LEFT OVARY: Nonvisualized. A Jarvis catheter is noted within the urinary bladder. The right and left ureteral jets are identified. The urinary bladder decompressed appropriately after the catheter was unclamped. CONCLUSION: Status post hysterectomy. Unremarkable sonographic ap pearance of the urinary bladder. Dictated by: Emily Colvin M.D. on 04/13/2017 at 10:40 Electronically approved by: Emily Colvin M.D. on 04/13/2017 at 10:40 Dictated By: EMILY COLVIN MD 1040 Transcribed By: AMANDA on 04/13/17 1040 CO PY TO: REYNOLD MAK MD HAND BILATERAL 3 OR MORE VIEWS [place] [address] Patient Name: CLARI WALTON MR #: [id number] : 1945 Age/Sex: 71/F Req #: [id number] Adm Physician: REYNOLD MCKENZIE MD Ordered by: REYNOLD MAK MD Report #: [id number] Location : MED/SURG Room/Bed: [facility] Procedure: [id number] DX/STARR ND BILATERAL 3 OR MORE VIEWS Exam Date: Exam Time: REPORT STATUS: Signed Bilateral hand 3 - views HISTORY: [place]th[place]. COMPARISON: None FINDINGS: No displaced fracture. Th ere is mild subluxation of the bilateral first metacarpophalangeal joints with mild degenerative osteoarthrosis. IMPRESSION: Mild degenerative subl uxation of the first metacarpophalangeal joint bilaterally. Signed by: Dr West Mi M.D. on 04/10/2017 5:59 PM Dictated By: ANAHI PETIT MD, MD 58 Tra nscribed By: ARNOLD on 04/10/171758 COPY TO: REYNOLD MAK MD SHOULDER COMPLETE BILATERAL [place] [address] Patient Name: CLARI WALTON MR #: [id number] : 1945 Age/Sex: 71/F Req #: [id number] Adm Physician: REYNOLD MAK MD Ordered by: REYNOLD MAK MD Report #: [id number] Location: MED/SURG Room/Bed: [facility] Procedure: [id number] DX/ OULDER COMPLETE BILATERAL Exam Date: 04/10/17 Exam T ezequiel: 1650 REPORT STATUS: Signed SHOULDER COMPLETE BILATERAL [...] soft tissues appear unremarkable. IMPRESSION: Mild degenerative oste oarthrosis of the left AC joint, and of the right the glenohumeral joint. Signed by: Papito Lopez.D. on 04/10/2017 6:07 PM Dictated By: ANAHI MI MD, MD 06 COPY TO: GIANCARLO MAK MD CT ABDOMEN/PELVIS W [place] [address] Patient Name: CLARI WALTON MR #: [id number] : 1945 Age/Sex: 71/F Req #: [id number] Adm Physician: Ordered by: SHERIE SIGALA MD Report #: [id number] Location: ER Room/Bed: Procedure: [id number] CT/CT ABDOMEN/PELVIS W E xa Date: 03/30/17 Exam Time: 2157 REPORT STATU S: Signed EXAM: CT ABDOMEN AND PELVIS with IV CONTRAST DATE: 03/30/2017 8:2 9 PM Time stamp on Exam: 2152 hours INDICATION: Left upper quadrant pain C OMPARISON: None TECHNIQUE: The abdomen and pelvis were scanned using a multi detector helical scanner. Coronal and sagittal reformations were obtained. Rou sheila protocol performed. IV Contrast: 100 cc Isovue-370 Oral Contrast: Gas trografin CTDIvol has been reviewed. It is below the limits set by the Radiati on Protocol Committee (RPC). FINDINGS: LOWER THORAX: No consolidations LIVER: Subcentimeter hypodensity near the dome that is too small to freddie cterize, likely a cyst. BILIARY: The gallbladder is unremarkable. No ductal di lation. SPLEEN: No masses PANCREAS: No masses ADRENALS: No nodules KIDNEYS: Symmetric perfusion. No enhancing masses. No hydronephrosis. GI TRACT: No distention, wall thickening or evidence of obstruction. Nonspecific debris in the stomach, possibly a recently ingested meal. VESSELS: Mild ath erosclerotic changes of the abdominal aorta without aneurysm. The portal vein is patent. PERITONEUM/RETROPERITONEUM: No free air or fluid LYMPH NODES: No lymphadenopathy REPRODUCTIVE ORGANS: The uterus is not visualized. The left ovary is not visualized. Right adnexal 2.4 cm simple cyst. BLADDER: Unremar kable SOFT TISSUES: Unremarkable BONES: No suspicious bone lesions. IMPRESSION: No CT findings to explain patient's left upper quadrant pain. Signed by: Dr. Regine Kelley M.D. on 03/30/2017 10:37 PM Dictated B y: REGINE KELLEY MD 36 Transcribed By: ARNOLD on 03/30/172236 COPY TO: SHERIE SIGALA MD
--- OUTSIDE RECORDS SUMMARY | 2020-02-07 11:14 | XMS REPORT | Continuity of Care Document ---
Author Author [employer] Organization [employer] Address Unknown Phone Unavailable Care Team Providers Care Filler Feeder Name Role Phone Xencor Information Safaricross Unavailable Un available Problems Problem Status Onset Date Classification Date Reported Comments Source Bilateral primary osteoarthritis of knee 06/23/2018 01/07/2019 [facility] RAÚL KNEE,OA, LT SHOULDER,NECK PAIN Active 03/13/2018 [facility] LUMBAR SPINE/FOOT Active 09/03/2016 [facility] RAÚL KNEE OA Active 09/03/2016 [facility] 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 factor, multiple sites 01/07/2019 [facility] Primary osteoarthritis, left shoulder 01/07/2019 [facility] Other specified postprocedural states 01/07/2019 [facility] Muscle weakness (generalized) 01/07/2019 [facility] Cervicalgia 01/07/2019 [facility] Pain in right knee 01/07/2019 [facility] Pain in left knee 01/07/2019 [facility] Pain in left shoulder 01/07/2019 [facility] Difficulty in walking, not elsewhere classified 01/07/2019 [facility] Unspecified abnormalities of gait and mobility 01/07/2019 [facility] Other chronic pain 12/05/2018 [facility] Secondary osteoarthritis, left shoulder 11/05/2018 [facility] Pain in right shoulder 11/05/2018 [facility] Stiffness of unspecified joint, not else where classified 11/28/2017 [facility] Other abnormalities of gait and mobility 11/28/2017 [facility] Abnormal posture 11/28/2017 [facility] BACK PAIN Active [facility] BACK, RT KNEE, LEFT FOOT Active [facility] Medications No Data Provided for This Section Allergies, Adverse Reactions, Alerts Substance Category Reaction Severity Reaction type Status Date Reported Comments Source Adhesive tape Assertion Propensity to adverse reacti ons to substance Active [facility] Macrobid Assertion Drug allergy Active [facility] Immunizations No Data Provided for This Section Results No Data Provided for This Section Pathology Reports No Data Provided for This Section Diagnostic Reports No Data Provided for This Section Consultation Notes No Data Provided for This Section Discharge Summaries No Data Provided for This Section History and Physicals No Data Provided for This Section Vital Signs No Data Provided for This Section Encounters Location Location Details Encounter Type Encounter Number Reason For Visit Attending Provider ADM Date DC Date Status Source [facility] OP Therapy Patients [id number] Brock Longleigh ann 10/29/2015 11/28/2015 [facility] OP Therapy Patients [id number] Brock Abdirahman 12/03/2015 01/02/2016 [facility] OP Therapy Patients [id number] Brockmarco Gary 06/21/2017 07/21/2017 [facility] OP Therapy Patients [id number] Brock Gary 07/24/2017 08/23/2017 [facility] OP Therapy Patients [id number] Non Physician 03/19/2018 04/18/2018 [facility] OP Therapy Patients [id number] Non Physician 04/18/2018 05/18/2018 [facility] OP Therapy Patients [id number] Non Physician 05/21/2018 06/20/2018 [facility] Procedures No Data Provided for This Section Assessment and Plan No Data Provided for This Section Plan of Care No Data Provided for This Section Social History Social History Date Source Social History TypeResponse 06/20/2018 [facility] Family History No Data Provided for This Section Advance Directives No Data Provided for This Section Functional Status No Data Provided for This Section
--- OUTSIDE RECORDS SUMMARY | 2020-02-07 11:14 | XMS REPORT | Clinical Summary ---
Author Author [employer] Organization [employer] Address Unknown Phone Unavailable Care Team Providers Care Trampoline Team Coach Name Role Phone Parmjit Franco A PCP [...] mcg capsule Take by mouth 0 daily. Active Problems Problem Noted Date OA (osteoarthritis) of knee 12/26/2017 Family History Medical History Relation Name Comments Heart disease Father Hypertension Mother Stroke Mother Relation Name Status Comments Father Mother Social History Date Tobacco Use Types Packs/Day Years Used Quit: 12/15/2004 Former Smoker Cigarettes 1 Smokeless Tobacco: Never Used Comments: Quit 12 years ago Drinks/Week oz/Week Comments Alcohol Use No Sex Assigned at Date Recorded Not on file Industry Job Start Date Occupation Not on file Not on file Not on file Travel End Travel History Travel Start No recent travel history available. Last Filed Vital Signs Not on file Plan of Treatment Health Maintenance Due Date Last Done Comments BREAST CANCER SCREENING 1997 COLONOSCOPY SCREENING 1997 SHINGLES VACCINES (#1) 1997 65+ PNEUMOCOCCAL VACCINE 2012 (1 of 2 - PCV13) INFLUENZA VACCINE 03/05/2020 Implants Device Identifier Shelf Expiration Date Model / Serial / L ot Implanted Type Area Manufactur er 12/25/2019 3889 28 / / [id number] Kit Nurostmltn Lead Tined 4 Elctrd Cardiac N/A: N/A MEDTRONIC Spaced 3mm 28cm - [id number] Pacing NEUROMODUL Implanted: 02/16/2016 at [facility] Leads or [facility] (Quantity not on file) Electrodes or Accessorie s 08/24/2027 [id number] / / [id number] Vanguard Cr Por Fem-Rt 57.5 - IPM Right: Knee BIOMET, [id number] IMPLANT INC Implanted: 12/26/2017 at [facility] ([facility] not on file[facility] 08/09/2027 [id number] / / [id number] Biomet Regenx Sarah Tib Tray 67mm - IPM Right: Knee BIOMET, [id number] IMPLANT INC Implanted: 12/26/2017 at [facility] DEVICES [facility] (Quantity not on file) 10/27/2022 EP [id number] / / [id number] E-Poly Vanguard Cr Tib Brng 63/67 X IPM Right: Kne e BIOMET, 12 - [id number] IMPLANT INC Implanted: 12/26/2017 at [facility] DEVICES [facility] (Quantity not on file) 12/09/2027 [id number] / / [id number] Stem Tib Prim Finned 40mm Ascent Knee Joint Right: Knee BIOMET INC Maxim - [id number] Implants Implanted: 12/26/2017 at [facility] (Quantity not on file) 04/01/2017 3058 / [id number] / [id number] Neurostimulator Imp Interstim Ii Neurosurgi N/A: N/A MEDTRONIC 46e33p5.7mm Nrechrgbl - [id number] uriel [place] - Implanted: 02/16/2016 [facility] [place] 30[facility] / / Supervisor Metal Furniture Assembly Pt For Sacral Nuromodltn Neurosurgi N/A: N/A MEDTR[employer] Interstim Icon - [id number] uriel [place] - Implanted: 02/16/2016 at [facility] [place] Results Not on fileafter 02/06/2019 Insurance Type Payer Benefit Subscriber ID Effective Phone Address Plan / Dates Group PPO HUMANA MEDICARE HUMANA xxxxxxxxx 2017-P MEDICARE resent PPO/PFFS/E RS [facility] Advance Directives For more information, please contact: [phone] Patient Lead Former Explanation Type Date Recorded Advance Directives, Living Will and Medical Power of Mixer Wet Pour
[2020-02-07] MEDS: CEFTRIAXONE SOD 1 GM/NS 50 ML 50 ML IV SCH ×2 (11:39→20:21)
--- OUTSIDE RECORDS SUMMARY | 2020-02-07 11:54 | XMS REPORT | Clinical Summary ---
Author Author [employer] Organization [employer] Address Unknown Phone Unavailable Care Team Providers Care Wax Machine Operator Name Role Phone Parmjit Franco A PCP [...] Manufactur er 12/25/2019 3889 28 / / [id number] Kit Nurostmltn Lead Tined 4 Elctrd Cardiac N/A: N/A [employer] Spaced 3mm 28cm - [id number] Pacing NEUROMODUL Implanted: 02/16/2016 at [facility] Leads or [facility] (Quantity not on file) Electrodes or Accessorie s 08/24/2027 [id number] / / [id number] Vanguard Cr Por Fem-Rt 57.5 - IPM Right: Knee BIOMET, [id number] IMPLANT INC Implanted: 12/26/2017 at [facility] (Quantity not on file) 08/09/2027 [id number] / / [id number] Biomet Regenx Sarah Tib Tray 67mm - IPM Right: Knee BIOMET, [id number] IMPLANT INC Implanted: 12/26/2017 at [facility] DEVICES [facility] (Quantity not on file) 10/27/2022 EP [id number] / / [id number] E-Poly Vanguard Cr Tib Brng 63/67 X IPM Right: Kne e BIOMET, 12 - [id number] IMPLANT INC Implanted: 12/26/2017 at [facility] DEV[facility] (Quantity not on file) 12/09/2027 [id number] / / [id number] Stem Tib Prim Finned 40mm Ascent Knee Joint Right: Knee BIOMET INC Maxim - [id number] Implants Implanted: 12/26/2017 at [facility] (Quantity not on file) 04/01/2017 3058 / [id number] / [id number] Neurostimulator Imp Interstim Ii Neurosurgi N/A: N/A MEDTRONIC [id number] Nrechrgbl - [id number] uriel [place] - Implanted: 02/16/2016 at [facility] [place] 3037 / / Casualty Claims Supervisor Pt For Sacral Nuromodltn Neurosurgi N/A: N/A MEDTR[employer] Interstim Icon - [id number] uriel [place] - Implanted: 02/16/2016 at [facility] not on file) [place] Results Not on fileafter 02/06/2019 Insurance Type Payer Benefit Subscriber ID Effective Phone Address Plan / Dates Group PPO HUMANA MEDICARE HUMANA xxxxxxxxx 2017-P MEDICARE resent PPO/PFFS/E RS [facility] Guarantor Name Account Relation to Date of Phone Jodie ortiz Address Type Patient Tesha Mariano Personal/F Self 1945 [address] [facility] [place] [address] Advance Directives For more information, please contact: [phone] Patient Casing Runner Explanation Type Date Recorded Advance Directives, Living Will and Medical Power of Ampoule Inspector
--- OUTSIDE RECORDS SUMMARY | 2020-02-07 11:54 | XMS REPORT | Continuity of Care Document ---
Author Author [employer] Organization [employer] Address Unknown Phone Unavailable Care Team Providers Care Cost Accounting Clerk Name Role Phone Hit Systems Information Agorafy Unavailable Un available Problems Problem Status Onset Date Classification Date Reported Comments Source Bilateral primary osteoarthritis of knee 06/23/2018 01/07/2019 [facility] RAÚL KNEE,OA, LT SHOULDER,NECK PAIN Active 03/13/2018 [facility] LUMBAR SPINE/FOOT Active 09/03/2016 [facility] RAÚL KNEE OA Active 09/03/2016 [facility] 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 factor, multiple sites 01/07/2019 [facility] Primary osteoarthritis, left shoulder 01/07/2019 [facility] Other specified postprocedural states 01/07/2019 [facility] Muscle weakness (generalized) 01/07/2019 [facility] Cervicalgia 01/07/2019 [facility] Pain in right knee 01/07/2019 [facility] Pain in left knee 01/07/2019 [facility] Pain in left shoulder 01/07/2019 [facility] Difficulty in walking, not elsewhere classified 01/07/2019 [facility] Unspecified abnormalities of gait and mobility 01/07/2019 [facility] Other chronic pain 12/05/2018 [facility] Secondary osteoarthritis, left shoulder 11/05/2018 [facility] Pain in right shoulder 11/05/2018 [facility] Stiffness of unspecified joint, not else where classified 11/28/2017 [facility] Other abnormalities of gait and mobility 11/28/2017 [facility] Abnormal posture 11/28/2017 [facility] BACK PAIN Active [facility] BACK, RT KNEE, LEFT FOOT Active [facility] Medications No Data Provided for This Section Allergies, Adverse Reactions, Alerts Substance Category Reaction Severity Reaction type Status Date Reported Comments Source Adhesive tape Assertion Propensity to adverse reacti ons to substance Active [facility] Macrobid Assertion Drug allergy Active [facility] Immunizations No Data Provided for This [...] Provider ADM Date DC Date Status Source [facility] OP Therapy Patients [id number] Brock Longleigh ann 10/29/2015 11/28/2015 [facility] OP Therapy Patients [id number] Brock Abdirahman 12/03/2015 01/02/2016 [facility] OP Therapy Patients [id number] Brockmarco Gary 06/21/2017 07/21/2017 [facility] OP Therapy Patients [id number] Brock Gary 07/24/2017 08/23/2017 [facility] OP Therapy Patients [id number] Non Physician 03/19/2018 04/18/2018 [facility] OP Therapy Patients [id number] Non Physician 04/18/2018 05/18/2018 [facility] OP Therapy Patients [id number] Non Physician 05/21/2018 06/20/2018 [facility] Procedures No Data Provided for This Section Assessment and Plan No Data Provided for This Section Plan of Care No Data Provided for This Section Social History Social History Date Source Social History TypeResponse 06/20/2018 [facility] Family History No Data Provided for This Section Advance Directives No Data Provided for This Section Functional Status No Data Provided for This Section
--- OUTSIDE RECORDS SUMMARY | 2020-02-07 11:55 | XMS REPORT | Continuity of Care Document ---
Author Author [facility] t Organization [facility] Address [address] [place] [address] Phone Unavailable Care Team Providers Care Snuff Grinder Name Role Phone Juan Manuel PORRAS M.D. PCP Juan Manuel WEIR Attphys Unavailable JON KNOX Attphys Unavailable Anita SIGALA Attphys Unavailable Physician, Associated Non Attphys Unavailable Boyd Gary Attphys Anita PALACIO Attphys Unavailable OBDULIO, REYNOLD Attphys Unavailable DR DOMENICA GARY Attphys Unavailable OBDULIO, REYNOLD Admphys Unavailable DR DOMENICA GARY Admnata Unavailable Payers Payer Name Policy Type Policy Number Effective Date Expiration Date S [facility] Medicare [id number] 2013 00:00:00 [facility] Problems Condition Name Condition Details Condition Category Status Onset Date Resolution Date Last Treatment Date Treating Clinician Comments Source RAÚL KNEE,OA, LT SHOULDER,NECK PAIN RAÚL KNEE,OA, LT SHOULDER,NECK PAIN Active 03/13/2018 [facility] [place] Diagnosis Active 2018-03-13 08:00:00 2018-03-19 13:15:00 M marilou Desai OA (osteoarthritis) of knee OA (osteoarthritis) of knee Disease Active 2017-12-26 00:00:00 Darrick Hsu LUMBAR SPINE/FOOT LUMB AR SPINE/FOOT Active 09/03/2016 [facility] Diagnosis Active 2016-09-03 16:00:00 2017-07-24 14:10:00 [facility] RAÚL KNEE OA RAÚL KNEE OA Active 09/03/2016 [facility] Diagnosis Active 2016-09-03 16:00:00 2018-05-21 14:00:00 Vargas Desai Anemia Anemia Problem Active [facility] Hypokalemia Hypokalemia Problem Active [facility] Hyponatremia Hyponatremia Problem Active [facility] Rectal hemorrhage Rectal bleeding Problem Active [facility] Urinary tract infection UTI (urinary tract infection) Problem Active [facility] 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 factor, 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, multiple sites 01/07/2019 [facility] Problem 2019-01-07 11:43:47 Vargas Mayenann Primary osteoarthritis, left shoulder Primary osteoarthritis, left shoulder 01/07/2019 [facility] Problem 2019-01-07 11:43:47 [facility] Other specified postprocedural states Other specified postprocedural states 01/07/2019 [facility] Problem 2019-01-07 11:43:47 [facility] [place] Muscle weakness (generalized) Muscle weakness (generalized) 01/07/2019 [facility] Problem 01-07 11:43:47 [facility] [place] Cervicalgia Cerv icalgia 01/07/2019 [facility] Problem 2019-01-07 11:43:47 [facility] Pain in right knee Pain in right knee 01/07/2019 [facility] Problem 2019-01-07 11:43:47 [facility] Pain in left knee Pain in left knee 01/07/2019 [facility] Problem 2019-01-07 11:43:47 [facility] Pain in left shoulder Pain in left shoulder 01/07/2019 [facility] Problem 2019-01-07 11:43:47 [facility] Difficulty in walking, not elsewhere classified Difficulty in walking, not elsewhere classified 01/07/2019 [facility] Problem 2019-01-07 11:43:47 [facility] [place] Unspecified abnormalities of gait and mobility Unspecified abnormalities of gait and mobility 01/07/2019 [facility] Problem 2019-01-07 11:43:47 [facility] Other chronic pain Othe r chronic pain 12/05/2018 [facility] Problem 2018-12-05 11:39:31 [facility] [place] Secondary osteoarthritis, left shoulder Secondary osteoarthritis, left shoulder 11/05/2018 [facility] Problem 2018-11-05 11:40:50 [facility] [place] Pain in right shoulder Pain in right shoulder 11/05/2018 [facility] Problem 2018-11-05 11:40:50 [facility] Stiffness of unspecified joint, not elsewhere classifi ed Stiffness of unspecified joint, not elsewhere classified 11/28/2017 [facility] Problem 2017-11-28 11:56:15 [facility] Other abnormalities of gait and mobility Other abnormalities of gait and mobility 11/28/2017 [facility] Problem 2017-11-28 11:56:15 [facility] Abnormal posture Abno rmal posture 11/28/2017 [facility] Problem 2017-11-28 11:56:15 [facility] BACK PAIN BACK PAIN Active [facility] Diagnosis Active 2015-12-03 13:53:00 Edgardor lukasz Desai BACK, RT KNEE, LEFT FOOT BACK , RT KNEE, LEFT FOOT Active [facility] Diagnosis Active 2015-10-29 14:23:00 [facility] Bilateral primary osteoarthritis of knee Bilateral primary osteoarthritis of knee 06/23/2018 01/07/2019 [facility] Problem 2018-06-23 06:11:48 2019-01-07 11:43:47 2019-01-07 11:43:47 [facility] Allergies, Adverse Reactions, Alerts Allergy Name Allergy Type Status Severity Reaction(s) Onset Date Inacti ve Date Treating Clinician Comments Source Latex Allergy to Substance Active 2019-03-29 00:00:00 [facility] clavulanic acid Allergy to Substance Active rash 2019-03-29 00:0 0:00 [facility] influenza virus vaccine, specific Allergy to Substance Active 2019-03-29 00:00:00 [facility] Amoxicillin Allergy to Substance Active rash 2019-03-29 00:00:00 [facility] Levofloxacin Allergy to Substance Active rash 2019-03-29 00:00:0 0 [facility] clavulanic acid DA Active U 2019-02-26 00:00:00 [facility] nitrofurantoin DA Active U 2019-02-26 00:00:00 [facility] amoxicillin DA Active U 2019-02-26 00:00:00 [facility] levofloxacin DA Active U 2019-02-26 00:00:00 [facility] latex DA Active U 2019-02-26 00:00:00 [facility] Amoxicillin-Pot Clavulanate Propensity to adverse reactions to drug Active Itching 2017-12-15 00:00:00 Darrick Hsu Latex Propensity to adverse reactions to drug Active Rash 2017-09-25 00:00:00 Darrick Hsu Nitrofurantoin Monohyd/M-Cryst Propensity to adverse reactions to d rug Active Rash 2016-02-16 00:00:00 Darrick Hsu Adhesive tape Adhesive tape Active [facility] [place] Macrobid Macrobid Active Reji or Lloyd Family History Family Member Diagnosis Comments Start Date Stop Date Source Natural father Heart disease Darrick Hsu Natural mother Hypertension Darrick Hsu Natural mother Stroke [facility] thodist Social History Social Habit Start Date Stop Date Quantity Comments Source Sex Assigned At Aiden colon Shadi Cigarettes smoked current (pack per day) - [...] 400 Mg Tablet Yes 40 0 Daily [facility] Albuterol Sulfate (Proair Hfa Inhaler*) 8.5 Gm Inh Alb uterol Sulfate (Proair Hfa Inhaler*) 8.5 Gm Inh Yes 90 Daily [facility] Amlodipine Besylate 10 Mg Tablet Amlodipine Besylate 10 Mg Tablet Yes 5 Daily [facility] Ascorbic Acid (Vitamin C) 1,000 Mg Tablet Ascorbic Aci d (Vitamin C) 1,000 Mg Tablet Yes 1000 Daily [facility] Atorvastatin Calcium 20 Mg Tablet Atorvastatin Calcium 20 Mg Tablet Yes 20 Bedtime [facility] Biotin 2,500 Mcg Capsule Biotin 2,500 Mcg Capsule Yes 83566 Daily [facility] Calcium Calcium Yes 600 Daily [facility] Cholecalciferol (Vitamin D3) (Vitamin D3) 1,000 Unit C apsule Cholecalciferol (Vitamin D3) (Vitamin D3) 1,000 Unit Capsule Yes 2000 Daily [facility] Colestipol Hcl,Micronized (Colestipol Hcl) 1 Gm Tablet Colestipol Hcl,Micronized (Colestipol Hcl) 1 Gm Tablet Yes 1 Twice A D ay [facility] Diazepam (Valium) 10 Mg Tablet Diazepam (Valium) 10 Mg Tablet Yes 10 as needed for Anxiety [facility] Dicyclomine Hcl 20 Mg Tablet Dicyclomine Hcl 20 Mg Tablet Y es 20 Four Times Daily [facility] Hydrochlorothiazide 25 Mg Tablet Hydrochlorothiazide 25 Mg Tablet Yes 25 Daily [facility] Hydrocodone Bit/Acetaminophen (Cimarron 5-325 Tablet) 1 E ach Tablet Hydrocodone Bit/Acetaminophen (Cimarron 5-325 Tablet) 1 Each Tablet Yes 1 Four Times Daily [facility] Hydroxychloroquine Sulfate 200 Mg Tablet Hydroxychloro quine Sulfate 200 Mg Tablet Yes Twice A Day [facility] Levothyroxine Sodium 25 Mcg Tablet Levothyroxine Sodium 25 Mcg Tablet Yes 50 Daily [facility] Losartan Potassium 25 Mg Tablet Losartan Potassium 25 Mg Tablet Yes 50 Daily [facility] Mometasone Mometasone Yes 50 Daily [facility] Mometasone Furoate 30 Ml Solution Mometasone Furoate 30 Ml Solution Yes 50 Daily [facility] Multivitamin Ultra Multivitamin Ultra Yes 1 Da pablo [facility] Pantoprazole Sodium (Protonix) 40 Mg Tablet. Pantopr azole Sodium (Protonix) 40 Mg Tablet. Yes 40 Daily for Indigestion [facility] Paroxetine Hcl 20 Mg Tablet Paroxetine Hcl 20 Mg Tablet Yes 10 Daily [facility] Promethazine Hcl 25 Mg Tablet Promethazine Hcl 25 Mg Tablet Yes 25 As Needed [facility] Sumatriptan Succinate (Imitrex) 25 Mg Tablet Sumatript an Succinate (Imitrex) 25 Mg Tablet Yes 100 As Needed as needed for Migr carlos [facility] Tizanidine Hcl 4 Mg Tablet Tizanidine Hcl 4 Mg Tablet Yes 4 Every 8 Hours as needed for Muscle Spasms [facility] Tolterodine Tartrate (Detrol La) 4 Mg Cap.er.24h Tolte rodine Tartrate (Detrol La) 4 Mg Cap.er.24h Yes 4 Daily [facility] Valtarian Gel Valtarian Gel Yes 100 Daily [facility] Meloxicam 7.5 Mg Tablet, 7.5 Mg Oral Meloxicam 7.5 Mg Tablet, 7. 5 Mg Oral 2018-10-03 00:00:00 No 7.5 Daily [facility] Acetaminophen With Codeine (Tylenol With Codeine #3 Tablet) 1 Each Tablet, 300 Mg Oral Acetaminophen With Codeine (Tylenol With Codeine #3 Tablet) 1 Each Tablet, 300 Mg Oral 2018-09-11 00:00:00 No 300 As Needed as needed for Pain [facility] Cholestyramine (With Sugar) (Questran Packet) 4 Gm Pac ket, 4 Gm Oral Cholestyramine (With Sugar) (Questran Packet) 4 Gm Packet, 4 Gm Oral 2018-09-11 00:00:00 No 4 Daily [facility] Diclofenac Epolamine (Flector) 1 Each Adh..patch, 1 Do se Topically Diclofenac Epolamine (Flector) 1 Each Adh..patch, 1 Dose Topically 2018 00:00:00 No 1 [facility] Hydrocodone Bit/Acetaminophen (Cimarron 5-325 Tablet) 1 E ach Tablet, 1 Each Oral Hydrocodone Bit/Acetaminophen (Cimarron 5-325 Tablet) 1 Each Tablet, 1 Each Oral 2018-09-11 00:00:00 No 1 As Needed as needed for Pain [facility] Sumatriptan Succinate 100 Mg Tablet, 100 Mg Oral Sumat riptan Succinate 100 Mg Tablet, 100 Mg Oral 2018-09-11 00:00:00 No 100 Daily as needed for Migraine [facility] Valsartan/Hydrochlorothiazide (Diovan Hc t 160-25 Mg Tablet) 1 Each Tablet, 1 Tab Oral Valsartan/Hydrochlorothiazide (Diovan Hc t 160-25 Mg Tablet) 1 Each Tablet, 1 Tab Oral 2018-09-11 00:00:00 No 1 A s Needed as needed for High Blood Pressure [facility] Amoxicillin/Potassium Clav (Amox Tr-K Cl v 875-125 Mg Tab) 1 Each Tablet, 1 Tab Oral Amoxicillin/Potassium Clav (Amox Tr-K Cl v 875-125 Mg Tab) 1 Each Tablet, 1 Tab Oral 2017-08-15 00:00:00 No 1 Twice A Day [facility] Atorvastatin Calcium 20 Mg Tablet, 20 Mg Oral Atorvast atin Calcium 20 Mg Tablet, 20 Mg Oral 2017-08-15 00:00:00 No 20 Daily [facility] Fluticasone/Salmeterol (Advair 100-50 Diskus) 1 Each D isk.w.dev, 50 Mcg Nasal Fluticasone/Salmeterol (Advair 100-50 Diskus) 1 Each Disk.w.dev, 50 Mcg Nasal 2017-08-15 00:00:00 No 50 Daily [facility] Abatacept (Orencia) 125 Mg/1 Ml Disp.syrin, 125 Mg Sub -Q Abatacept (Orencia) 125 Mg/1 Ml Disp.syrin, 125 Mg Sub-Q 2017-08-11 00:00:00 No 125 [facility] Albuterol Sulfate (Proair Hfa Inhaler*) 8.5 Gm Inh, 90 Mcg Inhalation Albuterol Sulfate (Proair Hfa Inhaler*) 8.5 Gm Inh, 90 Mcg Inhalation 2017-08-11 00:00:00 No 90 Every 4 Hours [facility] Levalbuterol Hcl 0.63 Mg/3 Ml Vial.neb, 0.63 Mg Nebull izer Levalbuterol Hcl 0.63 Mg/3 Ml Vial.neb, 0.63 Mg Nebullizer 2017-08-11 00:00:00 No .63 As Needed [facility] Melatonin 10 Mg Tablet, 10 Mg Oral Melatonin 10 Mg Tablet, 10 Mg Oral 2017-08-11 00:00:00 No 10 Bedtime as needed fo r Insomnia [facility] Hydrocodone Bit/Acetaminophen (Cimarron 10- 325 Tablet) 1 Each Tablet, 10-325 Mg Oral Hydrocodone Bit/Acetaminophen (Cimarron 10- 325 Tablet) 1 Each Tablet, 10-325 Mg Oral 2017-04-13 00:00:00 No Every 8 Hours as needed for Pain [facility] Morphine Sulfate (Morphine Sulfate Er) 30 Mg Cap.er.pe l, 30 Mg Oral Morphine Sulfate (Morphine Sulfate Er) 30 Mg Cap.er.pel, 30 Mg Oral 2017-04-13 00:00:00 No 30 As Needed as needed for Pain [facility] Promethazine Hcl 25 Mg Tablet, 25 Mg Oral Promethazine Hcl 25 Mg Tablet, 25 Mg Oral 2017-04-13 00:00:00 No 25 Ever y 6 Hours as needed for Indigestion [facility] Amlodipine Besylate (Norvasc) 5 Mg Tab, 5 Mg Oral Amlo dipine Besylate (Norvasc) 5 Mg Tab, 5 Mg Oral 2017-04-10 00:00:00 No 5 Audrey y [facility] Aspirin (Aspirin Ec) 81 Mg Tablet., 81 Mg Oral Aspir in (Aspirin Ec) 81 Mg Tablet., 81 Mg Oral 2017-04-10 00:00:00 No 81 Da pablo [facility] Budesonide (Budesonide Ec) 3 Mg Capdr...er, 3 Mg Oral Budesonide (Budesonide Ec) 3 Mg Capdr...er, 3 Mg Oral 2017-04-10 00:00:00 No 3 Daily [facility] Hydrocodone Bit/Acetaminophen (Cimarron 7.5 -325 Tablet) 1 Each Tablet, 7.5-325 Mg Oral Hydrocodone Bit/Acetaminophen (Cimarron 7.5 -325 Tablet) 1 Each Tablet, 7.5-325 Mg Oral 2017-04-10 00:00:00 No Ever y 6 Hours as needed for Breakthrough Pain [facility] Hydrocodone Bit/Acetaminophen (Cimarron 7.5-325 Tablet) 1 Each Tablet, 1 Tab Oral Hydrocodone Bit/Acetaminophen (Cimarron 7.5-325 Tablet) 1 Each Tablet, 1 Tab Oral 2017-04-10 00:00:00 No 1 Every 6 Hours as n eeded for Pain [facility] Lactobacillus Acidophilus (Acidophilus) 1 Each Tablet, 1 Tab Oral Lactobacillus Acidophilus (Acidophilus) 1 Each Tablet, 1 Tab Oral 2017-04-10 00:0 0:00 No 1 Daily [facility] Mesalamine (Apriso) 0.375 Gm Cap.er.24h, 0.375 Gm Oral Mesalamine (Apriso) 0.375 Gm Cap.er.24h, 0.375 Gm Oral 2017-04-10 00:00:00 No .375 Daily [facility] Morphine Sulfate (Ms Contin) 60 Mg Tablet.er, 60 Mg Or al Morphine Sulfate (Ms Contin) 60 Mg Tablet.er, 60 Mg Oral 2017-04-10 00:00:00 No 60 as needed for Pain [facility] Omeprazole 20 Mg Capsule., 20 Mg Oral Omeprazole 20 Mg Cap allyssa., 20 Mg Oral 2017-04-10 00:00:00 No 20 Daily [facility] Sertraline Hcl 100 Mg Tablet, 100 Mg Oral Sertraline H cl 100 Mg Tablet, 100 Mg Oral 2017-04-10 00:00:00 No 100 Daily [facility] Simvastatin 10 Mg Tablet, 10 Mg Oral Simvastatin 10 Mg Tablet, 1 0 Mg Oral 2017-04-10 00:00:00 No 10 Bedtime [facility] Procedures Procedure Date / Time Performed Performing Clinician [facility] e CONTROL BLEEDING IN GASTROINTESTINAL TRACT, ENDO 2018-10-02 00:00:00 JON KNOX [facility] Computed tomography of abdomen and pelvis with contrast 2018 00:00:00 SHERIE SIGALA [facility] EGD BIOPSY SINGLE/MULTIPLE 2018-09-17 00:00:00 JON KNOX [facility] COLONOSCOPY AND BIOPSY 2018-09-17 00:00:00 JON KNOX [facility] COLONOSCOPY W/LESION REMOVAL 2018-09-17 00:00:00 JON KNOX [facility] COLONOSCOPY W/LESION REMOVAL 2018-09-17 00:00:00 JON KNOX [facility] Plan of Care Planned Activity Planned Date Details Comments Source Future Scheduled Test 2020-03-05 00:00:00 INFLUENZA VACCINE [code = INFLUENZA VACCINE] Darrick Hsu Future Scheduled Test 2012 00:00:00 65+ PNEUMOCOCCAL V ACCINE (1 of 2 - PCV13) [code = 65+ PNEUMOCOCCAL VACCINE (1 of 2 - PCV13)] [facility] Future Scheduled Test 1997 00:00:00 BREAST CANCER SCRE ENING [code = BREAST CANCER SCREENING] [facility] Future Scheduled Test 1997 00:00:00 COLONOSCOPY SCREEN ING [code = COLONOSCOPY SCREENING] [facility] Scheduled Test 1997 00:00:00 SHINGLES VACCINES (#1) [code = SHINGLES VACCINES (#1)] [facility] Encounters Start Date/Time End Date/Time Encounter Type Admission Type Attendi [facility] Care Department Encounter ID Source 2019-03-29 14:54:00 2019-03-29 17:57:[address] [facility] [id number] [facility] 2018-10-01 03:29:00 2018-10-03 11:28:00 Discharged Inpatient [address] [facility] [id number] [facility] 2018-09-17 11:12:00 2018-09-17 11:12:00 Registered Surgical Day Care [facility] [id number] [facility] 2018-05-21 13:58:00 2018-06-19 23:59:00 Outpatient Physici an, Non Associated [id number] 2018-04-18 12:00:00 2018-05-17 23:59:00 Outpatient Physici an, Non Associated [id number] 2018-03-19 13:12:00 2018-04-17 23:59:00 Outpatient Physici an, Non Associated [id number] 2017-07-24 14:08:00 2017-08-22 23:59:00 Outpatient Steinha user, Domenica Nix [id number] 2017-06-21 14:15:00 2017-07-20 23:59:00 Outpatient Steinha user, Domenica Nix [id number] 2015-12-03 13:53:00 2016-01-01 23:59:00 Outpatient Steinha user, Domenica Nix [id number] 2015-10-29 14:26:00 2015-11-27 23:59:00 Outpatient Steinha user, Domenica Nix [id number] Results Test Description Test Time Test Comments Results Result Comments Source CHEST SINGLE (PORTABLE) 2020-02-07 09:34:00 [place] [address] Patient Name: CLARI WALTON MR #: [id number] : 1945 Age/Sex: 74/F Req #: [id number] Adm Physician: Ordered by: KAYLEE WEIR MD Report #: [id number] Location: ER Room/Bed: Procedure: DX/CHEST SINGLE (PORTABLE) [...] LAGUNA MD CT ABDOMEN/PELVIS W 2019-11-20 11:20:00 [place] [address] Patient Name: CLARI WALTON MR #: [id number] : 1945 Age/Sex: 74/F Req #: [id number] Adm Physician: Ordered by: JON KNOX MD Report #: [id number] Location: CT Room/Bed: Procedure: [id number] CT/CT ABDOMEN/PELVIS W Exam Date: 11/20/19 Exam Time: 1106 REPORT STATUS: Signed EXAM: CT of the abdomen and pelvis with intravenous contrast HISTORY: [id number] UPPER ABD PAIN COMPARISON: 10/01/18 TECHNIQUE: Abdomen [...] mammographic images were evaluated by either a Pycno M-Vu or a Brevity ImageChecker CAD (computer aided detection system). Comparison is made to exams dated 06/18/2018 mammogram, mammogram, and 04/26/2016 mammogram - [facility] The tissue of both breasts [...] 06/19/2017 mammogram, [facility] Real-time ultrasound of both breasts and both [...] in 1 year.Mimi Navarro M.D. dm/:06/27/2019 16:58:04 Dog Food Shredder Operator: Cindy Hernandez , [facility] sent: BIRADS 1-2 Combo FU Letter Mammogram BI-RADS: 0 Incomplete: Additional Imaging Evaluation Needed Ultrasound BI-RADS: 2 Benign BREAST ULTRASOUND BILATERAL 2019-06-27 16:58:04 - DIAG MAMM BILATERAL CIRO CAD DIGITALBILATERAL DIGITAL DIAGNOSTIC MAMMOGRAM 3D/2D WITH CAD: 06/27/2019CLINICAL: Dense breasts. Digital breast tomosynthesis was performed in addition to routine CC and MLO views. Current mammographic images were evaluated by either a Pycno M-Vu or a Brevity ImageChecker CAD (computer aided detection system). Comparison is made to exams dated 06/18/2018 mammogram, mammogram, and 04/26/2016 [facility] The tissue of both breasts is heterogeneously [...] 06/19/2017 mammogram, and 04/26/2016 mammogram - [facility] Real-time ultrasound of both breasts [...] in 1 year.Mimi Navarro M.D. dm/:06/27/2019 16:58:04 Dog Food Shredder Operator: Cindy ANDERSON, [facility]-letter sent: BIRADS 1-2 Combo FU Letter Mammogram BI-RADS: 0 Incomplete: Additional Imaging Evaluation Needed Ultrasound BI-RADS: 2 Benign Urine WBC 2019-03-29 16:51:00 Test Item Urine WBC (test code = 5821-4) NONE 0-5 [facility] [id number] 16:51:00* Test Item Value Reference Range Interpretation Comments Urine RBC (test code = 02254-6) 0-5 0-5 [facility] [id number] 16:51:00* Test Item Value Reference Range Interpretation Comments Urine Bacteria (test code = 61040-3) NONE NONE [facility] Epithelial [id number] 16:51:00 * Test Item Value Reference Range Interpretation Comments Urine Epithelial Cells (test code = 57816-1) RARE NONE [facility] [id number] 16:33:00* Test Item Value Reference Range Interpretation Comments Urine Color (test code = 5778-6) ORANGE YELLOW H [facility] [id number] 16:33:00* Test Item Value Reference Range Interpretation Comments Urine Clarity (test code = 61269-2) SL CLOUDY CLEAR [facility] Specific [id number] 16:33:00 * Test Item Value Reference Range Interpretation Comments Urine Specific [place] (test code = 5811-5) <=1.005 1.010-1.02 5 [facility] [id number] 16:33:00* Test Item Value Reference Range Interpretation Comments Urine pH (test code = 69833-7) 6.5 5-7 [facility] Leukocyte [id number] 16:33:00* Test Item Value Reference Range Interpretation Comments Urine Leukocyte Esterase (test code = 09851-5) NEGATIVE NEGATIV E [facility] [id number] 16:33:00* Test Item Value Reference Range Interpretation Comments Urine Nitrite (test code = 33331-7) POSITIVE NEGATIVE H [facility] [id number] 16:33:00* Test Item Value Reference Range Interpretation Comments Urine Protein (test code = 79892-6) NEGATIVE NEGATIVE [facility] Glucose (UA)2019-03-29 16:33:00* Test Item Value Reference Range Interpretation Comments Urine Glucose (UA) (test code = 84819-2) NEGATIVE NEGATIVE [facility] [id number] 16:33:00* Test Item Value Reference Range Interpretation Comments Urine Ketones (test code = 93177-1) NEGATIVE NEGATIVE [facility] [id number] 16:33:00* Test Item Value Reference Range Interpretation Comments Urine Urobilinogen (test code = 49633-0) 0.2 0.2-1 [facility]cos[facility] Ijyuyhdmm1567-07-07 16:33:00* Test Item Value Reference Range Interpretation Comments Urine Bilirubin (test code = 1977-8) NEGATIVE NEGATIVE [facility] Simxb3159-20-24 16:33:00* Test Item Value Reference Range Interpretation Comments Urine Blood (test code = 26096-4) NEGATIVE NEGATIVE [facility] XR FLUOROSCOPY 0-60 [id number] 07:35:00Patient Name: CLARI WALTON Unit No: [id number] EXAMS: CPT CODE: [id number] XR FLUOROSCOPY 0-60 MIN 16963 Fluoroscopy 2 views intraoperative 03/02/2019 7:34 AM CLINICAL HISTORY: Instrument localization COMPARISON: None available LOCATION: W1 IMPRESSION: Please correlate imaging report findings with the procedure note prepared by Dr. Rene, as an intra-procedure imaging consultation was not requested. Reported fluoroscopy time: 12 seconds at 0735 Reported and signed by: ROBBIE SHAIKH M.D. CC: Rui Rene MD Technologist: David Aguila Time: DAP (Gy m2): Air Kerma (mGy): Trscr Dt/Tm: 03/02/2019 (0735) by:[email or web address] Printed Date/Time: 03/02/2019 (0738) Name: CLARI WALTON [facility] Phys: Rui Cole MD [address] : 1945 Age: 73 Sex: [place] [address] Loc: P.SRG Exam Date: 03/01/2019 Status: [facility] PH: FAX: PAGE 1 Signed Report - XR CHEST 1 [id number] 15:26:00Patient Name: CLARI WALTON Unit No: [id number] EXAMS: CPT CODE: [id number] XR CHEST 1 V 25999 INDICATIONS: PREOP BASELINE COMPARISON: There are no [...] MD CC: Rui Rene MD Technologist: Alpesh Aguila Time: DAP (Gy m2): Air Kerma (mGy): Trscr Dt/Tm: 02/26/2019 (8087) by:[email or web address] Printed Date/Time: 02/26/2019 (6295) Name: CLARI WALTON [facility] Phys: Rui Cole MD [address] : 1945 Age: 73 Sex: F [place], [place] [address] Loc: P.SRG Exam Date: 02/26/2019 Status: PRE SDC PH: FAX: PAGE 1 Signed Report COMPREHENSIVE METABOLIC [id number] 14:26:00* Test Item Value Reference Range Interpretation [...] = ALKP) 94 U/L 32-104 N PROTHROMBIN [id number] 14:14:00* Test Item Value Reference Range Interpretation [...] heart valves; 2.5-3.5recurrent systemic embolism. THROMBOPLASTIN TIME [id number] 14:14:00* Test Item Value Reference Range Interpretation Comments THROMBOPLASTIN TIME PARTIAL (test code = PTT) 30.5 SECONDS 26.0-35. 9 N INTERPRETATIVE DATA:Therapeutic range: Unfractionated heparin:47 - 71 seconds Argatroban:1.5 to 3 times the baseline PTT CBC W/AUTO [id number] 14:12:00* Test Item Value Reference Range Interpretation [...] BA#) 0.10 x10 3/uL 0.0-0.20 N Sodium Kyyfx2454-89-41 05:45:00* Test Item Value Reference Range Interpretation Comments Sodium Level (test code = 2951-2) 128 136-145 L [facility]Potassium Xnpgd4365-55-55 05:45:00* Test Item Value Reference Range Interpretation Comments Potassium Level (test code = 2823-3) 4.4 3.5-5.1 [facility]cosChloride Lqpyb5212-44-35 05:45:00* Test Item Value Reference Range Interpretation Comments Chloride Level (test code = 2075-0) 100 98-107 [facility] MarcosCarbon Dioxide Eetjg0361-73-00 05:45:00* Test Item Value Reference Range Interpretation Comments Carbon Dioxide Level (test code = 2028-9) 21 22-29 L [facility] MarcosAnion Hem7796-71-89 05:45:00* Test Item Value Reference Range Interpretation Comments Anion Gap (test code = 87621-1) 11.4 8-16 [facility]cosBlood Urea Tdxididl5557-38-61 05:45:00* Test Item Value Reference Range Interpretation Comments Blood Urea Nitrogen (test code = 3094-0) < 5 7-26 L [facility]cosCreatinine2019-05-01 05:45:00* Test Item Value Reference Range Interpretation Comments Creatinine (test code = 2160-0) 0.65 0.57-1.11 [facility]cosBUN/Creatinine Jboxr9036-79-79 05:45:00* Test Item Value Reference Range Interpretation Comments BUN/Creatinine Ratio (test code = 3097-3) 8 6-25 [facility] MarcosEstimat Glomerular Filtration Rate 2018-10-03 05:45:00* Test Item Value Reference Range Interpretation Comments Estimat Glomerular Filtration Rate (test code = 259722037) > 60 >60 Ranges were taken from the National Kidney Disease Education Program and the [facility] Foundation literature.Reference ranges:60 or greater: Phnljt32-69 ( for 3 consecutive months): Chronic kidney disease 15 or less: Kidney failureChristus Santa Rosa Hospital – San MarcosGlucose Yfawm1092-01-15 05:45:00* Test Item Value Reference Range Interpretation Comments Glucose Level (test code = XWD8962) 94 74-118 [facility]cosCalcium Strop7083-93-98 05:45:00* Test Item Value Reference Range Interpretation Comments Calcium Level (test code = 17920-2) 9.0 8.4-10.2 [facility]roeodium Szkll5429-62-10 05:45:00* Test Item Value Reference Range Interpretation Comments Sodium Level (test code = 2951-2) 128 136-145 L [facility]cosPotassium Wbbqs7730-98-06 05:45:00* Test Item Value Reference Range Interpretation Comments Potassium Level (test code = 2823-3) 4.4 3.5-5.1 [facility]cosChloride Aulst6551-57-09 05:45:00* Test Item Value Reference Range Interpretation Comments Chloride Level (test code = 2075-0) 100 98-107 [facility] MarcosCarbon Dioxide Otlhc6551-12-80 05:45:00* Test Item Value Reference Range Interpretation Comments Carbon Dioxide Level (test code = 2028-9) 21 22-29 L [facility] MarcosAnion Rwm4020-66-40 05:45:00* Test Item Value Reference Range Interpretation Comments Anion Gap (test code = 97417-3) 11.4 8-16 [facility]cosBlood Urea Kfjrsiyr1812-26-69 05:45:00* Test Item Value Reference Range Interpretation Comments Blood Urea Nitrogen (test code = 3094-0) < 5 7-26 L [facility]cosCreatinine2019-05-01 05:45:00* Test Item Value Reference Range Interpretation Comments Creatinine (test code = 2160-0) 0.65 0.57-1.11 [facility]cosBUN/Creatinine Uqrot7422-32-19 05:45:00* Test Item Value Reference Range Interpretation Comments BUN/Creatinine Ratio (test code = 3097-3) 8 6-25 [facility] MarcosEstimat Glomerular Filtration Rate 2018-10-03 05:45:00* Test Item Value Reference Range Interpretation Comments Estimat Glomerular Filtration Rate (test code = 067100460) > 60 >60 Ranges were taken from the National Kidney Disease Education Program and the [facility] Foundation literature.Reference ranges:60 or greater: Pokrpr84-06 ( for 3 consecutive months): Chronic kidney disease 15 or less: Kidney failureChristus Santa Rosa Hospital – San MarcosGlucose Dvlbq6363-59-08 05:45:00* Test Item Value Reference Range Interpretation Comments Glucose Level (test code = DGY0950) 94 74-118 [facility]cosCalcium Xgnzg1471-74-48 05:45:00* Test Item Value Reference Range Interpretation Comments Calcium Level (test code = 74970-3) 9.0 8.4-10.2 [facility]cosHemoglobin2019-05-01 05:37:00* Test Item Value Reference Range Interpretation Comments Hemoglobin (test code = 68539-6) 10.6 12.0-16.0 L [facility]cosHematocrit2019-05-01 05:37:00* Test Item Value Reference Range Interpretation Comments Hematocrit (test code = 4544-3) 32.0 34.2-44.1 L [facility]cosHemoglobin2019-05-01 05:37:00* Test Item Value Reference Range Interpretation Comments Hemoglobin (test code = 31504-5) 10.6 12.0-16.0 L [facility]cosHematocrit2019-05-01 05:37:00* Test Item Value Reference Range Interpretation Comments Hematocrit (test code = 4544-3) 32.0 34.2-44.1 L [facility] Vgswyjtai3339-73-57 05:23:00* Test Item Value Reference Range Interpretation Comments Total Bilirubin (test code = 1975-2) 0.7 0.2-1.2 [facility] MarcosAspartate Amino Transf (AST/SGOT) 2018-10-01 05:23:00* Test Item Value Reference Range Interpretation Comments Aspartate Amino Transf (AST/SGOT) (test code = Aspartate Amino Transf (AST/SGOT)) 26 5-34 [facility]cosAlanine Aminotransferase (ALT/SGPT) 2018-10-01 05:23:00* Test Item Value Reference Range Interpretation Comments Alanine Aminotransferase (ALT/SGPT) (test code = 1742-6) 31 0-55 [facility] Iwkmgye0993-79-41 05:23:00* Test Item Value Reference Range Interpretation Comments Total Protein (test code = 2885-2) 5.9 6.5-8.1 L [facility]cosAlbumin2019-04-29 05:23:00* Test Item Value Reference Range Interpretation Comments Albumin (test code = 1751-7) 3.3 3.5-5.0 L [facility]cosGlobulin2019-04-29 05:23:00* Test Item Value Reference Range Interpretation Comments Globulin (test code = 22259-0) 2.6 2.3-3.5 [facility]cosAlbumin/Globulin Oumde5703-18-63 05:23:00 * Test Item Value Reference Range Interpretation Comments Albumin/Globulin Ratio (test code = 1759-0) 1.3 0.8-2.0 [facility]cosAlkaline Ffipswhzxmc4826-50-52 05:23:00* Test Item Value Reference Range Interpretation Comments Alkaline Phosphatase (test code = 6768-6) 69 40-150 [facility] Xjiaazuiz7885-94-22 05:23:00* Test Item Value Reference Range Interpretation Comments Total Bilirubin (test code = 1975-2) 0.7 0.2-1.2 [facility] MarcosAspartate Amino Transf (AST/SGOT) 2018-10-01 05:23:00* Test Item Value Reference Range Interpretation Comments Aspartate Amino Transf (AST/SGOT) (test code = Aspartate Amino Transf (AST/SGOT)) 26 5-34 [facility]cosAlanine Aminotransferase (ALT/SGPT) 2018-10-01 05:23:00* Test Item Value Reference Range Interpretation Comments Alanine Aminotransferase (ALT/SGPT) (test code = 1742-6) 31 0-55 [facility] MarcosTotal Wsaqmmr6863-65-27 05:23:00* Test Item Value Reference Range Interpretation Comments Total Protein (test code = 2885-2) 5.9 6.5-8.1 L [facility] MarcosAlbumin2019-04-29 05:23:00* Test Item Value Reference Range Interpretation Comments Albumin (test code = 1751-7) 3.3 3.5-5.0 L [facility]cosGlobulin2019-04-29 05:23:00* Test Item Value Reference Range Interpretation Comments Globulin (test code = 79720-1) 2.6 2.3-3.5 [facility]cosAlbumin/Globulin Dhbtj6937-03-94 05:23:00 * Test Item Value Reference Range Interpretation Comments Albumin/Globulin Ratio (test code = 1759-0) 1.3 0.8-2.0 [facility]cosAlkaline Fszemlmxuzo4146-69-85 05:23:00* Test Item Value Reference Range Interpretation Comments Alkaline Phosphatase (test code = 6768-6) 69 40-150 [facility] MarcosUrine OAS2000-91-16 02:30:00* Test Item Value Reference Range Interpretation Comments Urine WBC (test code = 5821-4) 0-5 0-5 [facility] MarcosUrine [id number] 02:30:00* Test Item Value Reference Range Interpretation Comments Urine RBC (test code = 39932-5) 0-5 0-5 [facility]cosUrine Exvsiozd5565-39-48 02:30:00* Test Item Value Reference Range Interpretation Comments Urine Bacteria (test code = 58105-8) NONE NONE [facility]cosUrine Epithelial Dvkig8619-98-74 02:30:00 * Test Item Value Reference Range Interpretation Comments Urine Epithelial Cells (test code = 33938-5) RARE NONE [facility]cosUrine Iocfl7960-58-21 02:24:00* Test Item Value Reference Range Interpretation Comments Urine Color (test code = 5778-6) YELLOW YELLOW [facility]cosU[facility] Nhhbcsv4696-74-85 02:24:00* Test Item Value Reference Range Interpretation Comments Urine Clarity (test code = 18898-8) CLEAR CLEAR [facility] Specific Vjequld1554-15-87 02:24:00 * Test Item Value Reference Range Interpretation Comments Urine Specific [place] (test code = 5811-5) 1.005 1.010-1.02 5 L [facility]cosUrine kY6952-21-10 02:24:00* Test Item Value Reference Range Interpretation Comments Urine pH (test code = 69946-5) 7 5-7 [facility]cosU[facility] Leukocyte Jqlkfgee1384-70-48 02:24:00* Test Item Value Reference Range Interpretation Comments Urine Leukocyte Esterase (test code = 5799-2) NEGATIVE NEGATIVE [facility]cosU[facility] Szivubh5258-75-98 02:24:00* Test Item Value Reference Range Interpretation Comments Urine Nitrite (test code = 02304-5) NEGATIVE NEGATIVE [facility]cosUrine Abtajud9676-73-39 02:24:00* Test Item Value Reference Range Interpretation Comments Urine Protein (test code = 5804-0) NEGATIVE NEGATIVE [facility]cosUrine Glucose (UA)2018-10-01 02:24:00* Test Item Value Reference Range Interpretation Comments Urine Glucose (UA) (test code = 2349-9) NEGATIVE NEGATIVE [facility]cosUrine Uzcbtsg3011-26-81 02:24:00* Test Item Value Reference Range Interpretation Comments Urine Ketones (test code = 19514-2) 2+ NEGATIVE H [facility]cosUrine Tnyufobmnywb4007-75-91 02:24:00* Test Item Value Reference Range Interpretation Comments Urine Urobilinogen (test code = 77255-9) 0.2 0.2-1 [facility] Vdsvzlrxu3801-19-84 02:24:00* Test Item Value Reference Range Interpretation Comments Urine Bilirubin (test code = 1978-6) NEGATIVE NEGATIVE [facility] CenterU[facility] Kckhm3019-95-41 02:24:00* Test Item Value Reference Range Interpretation Comments Urine Blood (test code = 24836-8) NEGATIVE NEGATIVE [facility] CenterCT ABDOMEN/PELVIS [id number] 01:31:00 [facility] [address] [address] Patient Name: CLARI WALTON MR #: [id number] : 1945 Age/Sex: 73/F Req #: [id number] Adm Physician: Ordered by: SHERIE SIGALA MD Report #: [id number] Location: ER Room/Bed: Procedure: 0429-[address]/CT [...] 10/01/18203 COPY TO: SHERIE SIGALA MD Prothrombin Hjli4096-53-13 23:50:00* Test Item Value Reference Range Interpretation Comments Prothrombin Time (test code = 5902-2) 12.1 11.9-14.5 [facility]cosProthromb Time International Ratio 2018-09-30 23:50:00* Test Item Value Reference Range Interpretation Comments Prothromb Time International Ratio (test code = 6301-6) 0.85 Oral Anticoagulant Therapy INR Values:1. Low Intensity Therapy 1.5 - 2.02 . Moderate Intensity Therapy 2.0 - 3.03. High Intensity Therapy(1) 2.5 - 3. 54. High Intensity Therapy(2) 3.0 - 4.05. Panic Value INR > 5.0 [facility] MarcosActivated Partial Thromboplast Time 2018-09-30 23:50:00* Test Item Value Reference Range Interpretation Comments Activated Partial Thromboplast Time (test code = 27399-3) 28.1 23.8-35.5 [facility]cosProthrombin Rcqp0853-68-34 23:50:00* Test Item Value Reference Range Interpretation Comments Prothrombin Time (test code = 5902-2) 12.1 11.9-14.5 [facility]cosProthromb Time International Ratio 2018-09-30 23:50:00* Test Item Value Reference Range Interpretation Comments Prothromb Time International Ratio (test code = 6301-6) 0.85 Oral Anticoagulant Therapy INR Values:1. Low Intensity Therapy 1.5 - 2.02 . Moderate Intensity Therapy 2.0 - 3.03. High Intensity Therapy(1) 2.5 - 3. 54. High Intensity Therapy(2) 3.0 - 4.05. Panic Value INR > 5.0 [facility]cosActivated Partial Thromboplast Time 2018-09-30 23:50:00* Test Item Value Reference Range Interpretation Comments Activated Partial Thromboplast Time (test code = 86278-7) 28.1 23.8-35.5 [facility]cosWhite Blood Abumx1104-06-69 23:39:00* Test Item Value Reference Range Interpretation Comments White Blood Count (test code = 6690-2) 11.16 4.8-10.8 H [facility] MarcosRed Blood Zxryg6704-48-70 23:39:00* Test Item Value Reference Range Interpretation Comments Red Blood Count (test code = 789-8) 4.32 3.6-5.1 [facility] MarcosMean Corpuscular Bqxtsd4338-01-09 23:39:00* Test Item Value Reference Range Interpretation Comments Mean Corpuscular Volume (test code = 787-2) 85.2 81-99 [facility]cosMean Corpuscular Dmjolohfph1900-28-01 23:39:00* Test Item Value Reference Range Interpretation Comments Mean Corpuscular Hemoglobin (test code = 785-6) 30.3 28-32 [facility]cosMean Corpuscular Hemoglobin Concent 2018-09-30 23:39:00* Test Item Value Reference Range Interpretation Comments Mean Corpuscular Hemoglobin Concent (test code = 786-4) 35.6 31-35 H [facility] MarcosRed Cell Distribution Dnnzl0373-75-43 23:39:00* Test Item Value Reference Range Interpretation Comments Red Cell Distribution Width (test code = 71621-4) 12.9 11.7 -14.4 [facility] MarcosPlatelet Tkwod2432-46-78 23:39:00* Test Item Value Reference Range Interpretation Comments Platelet Count (test code = 777-3) 429 140-360 H [facility] MarcosNeutrophils (%) (Auto)2018-09-30 23:39:00 * Test Item Value Reference Range Interpretation Comments Neutrophils (%) (Auto) (test code = 32442-2) 71.5 38.7-80.0 [facility] MarcosLymphocytes (%) (Auto)2018-09-30 23:39:00 * Test Item Value Reference Range Interpretation Comments Lymphocytes (%) (Auto) (test code = 736-9) 18.1 18.0-39.1 [facility]cosMonocytes (%) (Auto)2018-09-30 23:39:00* Test Item Value Reference Range Interpretation Comments Monocytes (%) (Auto) (test code = 5905-5) 7.8 4.4-11.3 [facility]cosEosinophils (%) (Auto)2018-09-30 23:39:00 * Test Item Value Reference Range Interpretation Comments Eosinophils (%) (Auto) (test code = 713-8) 0.1 0.0-6.0 [facility]cosBasophils (%) (Auto)2018-09-30 23:39:00* Test Item Value Reference Range Interpretation Comments Basophils (%) (Auto) (test code = 706-2) 0.9 0.0-1.0 [facility] MarcosIM GRANULOCYTES %2018-09-30 23:39:00* Test Item Value Reference Range Interpretation Comments IM GRANULOCYTES % (test code = IM GRANULOCYTES %) 1.6 0.0- 1.0 H [facility] MarcosNeutrophils # (Auto)2018-09-30 23:39:00* Test Item Value Reference Range Interpretation Comments Neutrophils # (Auto) (test code = 751-8) 8.0 2.1-6.9 H [facility] MarcosLymphocytes # (Auto)2018-09-30 23:39:00* Test Item Value Reference Range Interpretation Comments Lymphocytes # (Auto) (test code = 19364-4) 2.0 1.0-3.2 [facility]cosMonocytes # (Auto)2018-09-30 23:39:00* Test Item Value Reference Range Interpretation Comments Monocytes # (Auto) (test code = 742-7) 0.9 0.2-0.8 H [facility]cosEosinophils # (Auto)2018-09-30 23:39:00* Test Item Value Reference Range Interpretation Comments Eosinophils # (Auto) (test code = 711-2) 0.0 0.0-0.4 [facility]cosBasophils # (Auto)2018-09-30 23:39:00* Test Item Value Reference Range Interpretation Comments Basophils # (Auto) (test code = 704-7) 0.1 0.0-0.1 [facility] MarcosAbsolute Immature Granulocyte (auto 2018-09-30 23:39:00* Test Item Value Reference Range Interpretation Comments Absolute Immature Granulocyte (auto (atif t code = Absolute Immature Granulocyte (auto) 0.18 0-0.1 H [facility]cosWhite Blood Dnzyq9260-08-75 23:39:00* Test Item Value Reference Range Interpretation Comments White Blood Count (test code = 6690-2) 11.16 4.8-10.8 H [facility] MarcosRed Blood Vtmud0774-35-28 23:39:00* Test Item Value Reference Range Interpretation Comments Red Blood Count (test code = 789-8) 4.32 3.6-5.1 [facility]cosMean Corpuscular Rjcvnt6440-34-63 23:39:00* Test Item Value Reference Range Interpretation Comments Mean Corpuscular Volume (test code = 787-2) 85.2 81-99 [facility] MarcosMean Corpuscular Ecfvrowvht2675-13-38 23:39:00* Test Item Value Reference Range Interpretation Comments Mean Corpuscular Hemoglobin (test code = 785-6) 30.3 28-32 [facility]cosMean Corpuscular Hemoglobin Concent 2018-09-30 23:39:00* Test Item Value Reference Range Interpretation Comments Mean Corpuscular Hemoglobin Concent (test code = 786-4) 35.6 31-35 H [facility]cosRed Cell Distribution Nfcft6137-16-08 23:39:00* Test Item Value Reference Range Interpretation Comments Red Cell Distribution Width (test code = 13766-8) 12.9 11.7 -14.4 [facility] MarcosPlatelet Koemv7174-44-30 23:39:00* Test Item Value Reference Range Interpretation Comments Platelet Count (test code = 777-3) 429 140-360 H [facility] MarcosNeutrophils (%) (Auto)2018-09-30 23:39:00 * Test Item Value Reference Range Interpretation Comments Neutrophils (%) (Auto) (test code = 09757-8) 71.5 38.7-80.0 [facility] MarcosLymphocytes (%) (Auto)2018-09-30 23:39:00 * Test Item Value Reference Range Interpretation Comments Lymphocytes (%) (Auto) (test code = 736-9) 18.1 18.0-39.1 [facility]cosMonocytes (%) (Auto)2018-09-30 23:39:00* Test Item Value Reference Range Interpretation Comments Monocytes (%) (Auto) (test code = 5905-5) 7.8 4.4-11.3 [facility]cosEosinophils (%) (Auto)2018-09-30 23:39:00 * Test Item Value Reference Range Interpretation Comments Eosinophils (%) (Auto) (test code = 713-8) 0.1 0.0-6.0 [facility]cosBasophils (%) (Auto)2018-09-30 23:39:00* Test Item Value Reference Range Interpretation Comments Basophils (%) (Auto) (test code = 706-2) 0.9 0.0-1.0 [facility] MarcosIM GRANULOCYTES %2018-09-30 23:39:00* Test Item Value Reference Range Interpretation Comments IM GRANULOCYTES % (test code = IM GRANULOCYTES %) 1.6 0.0- 1.0 H [facility]cosNeutrophils # (Auto)2018-09-30 23:39:00* Test Item Value Reference Range Interpretation Comments Neutrophils # (Auto) (test code = 751-8) 8.0 2.1-6.9 H [facility] MarcosLymphocytes # (Auto)2018-09-30 23:39:00* Test Item Value Reference Range Interpretation Comments Lymphocytes # (Auto) (test code = 28037-6) 2.0 1.0-3.2 [facility]cosMonocytes # (Auto)2018-09-30 23:39:00* Test Item Value Reference Range Interpretation Comments Monocytes # (Auto) (test code = 742-7) 0.9 0.2-0.8 H [facility]cosEosinophils # (Auto)2018-09-30 23:39:00* Test Item Value Reference Range Interpretation Comments Eosinophils # (Auto) (test code = 711-2) 0.0 0.0-0.4 [facility]cosBasophils # (Auto)2018-09-30 23:39:00* Test Item Value Reference Range Interpretation Comments Basophils # (Auto) (test code = 704-7) 0.1 0.0-0.1 [facility] MarcosAbsolute Immature Granulocyte (auto 2018-09-30 23:39:00* Test Item Value Reference Range Interpretation Comments Absolute Immature Granulocyte (auto (atif t code = Absolute Immature Granulocyte (auto) 0.18 0-0.1 H [facility] Msyvdnmlnupf0687-81-68 12:20:00* Test Item Value Reference Range Interpretation Comments Stool Calprotectin (test code = 75700-7) <16 0-120 Concentration Interpretation Follow-Up<16 - 50 ug/g Normal None>50 -120 ug/g Borderline Re-evaluate in 4-6 weeks >120 ug/g Abnormal Repeat as clinically indicatedPerformed at: [address] [id number] Director: Wilver Lockwood MD, Phone: [phone] E. DeBakey [facility] Hiwwfnwhrcer8688-22-98 12:20:00* Test Item Value Reference Range Interpretation Comments Stool Calprotectin (test code = 39913-0) <16 0-120 Concentration Interpretation Follow-Up<16 - 50 ug/g Normal None>50 -120 ug/g Borderline Re-evaluate in 4-6 weeks >120 ug/g Abnormal Repeat as clinically indicatedPerformed at: [address] [id number] Director: Wilver Lockwood MD, Phone: [phone] [facility] – San MarcosClostridium Difficile Toxin A & [id number] 12:09:00* Test Item Value Reference Range Interpretation Comments Clostridium Difficile Toxin A & B (test code = 390379056) NEGATIVE NEGATIVE Testing on stool aspirate specimens is outside relations specialist claims since specime n type not validated on this assay.[facility] [place] [facility] Clostridium Difficile Toxin A & [id number] 12:09:00* Test Item Value Reference Range Interpretation Comments Clostridium Difficile Toxin A & B (test code = 030962845) NEGATIVE NEGATIVE Testing on stool aspirate specimens is outside relations specialist claims since specime n type not validated on this assay.[facility] Conroetool Lactoferrin (LAB)2018-09-17 16:31:00* Test Item Value Reference Range Interpretation Comments Stool Lactoferrin (LAB) (test code = 43310-3) NEGATIVE NEGATIVE Testing on stool aspirate specimens is outside relations specialist claims since specime n type not validated on this assay.[facility] Conroetool Lactoferrin (LAB)2018-09-17 16:31:00* Test Item Value Reference Range Interpretation Comments Stool Lactoferrin (LAB) (test code = 38722-0) NEGATIVE NEGATIVE Testing on stool aspirate specimens is outside relations specialist claims since specime n type not validated on this assay.[facility]cosBREAST ULTRASOUND [id number] 13:33:04 - DIAG MAMM BILATERAL CIRO CAD DIGITALBILATERAL DIGITAL DIAGNOSTIC MAMMOGRAM 3D/2D WITH CAD: 06/18/2018CLINICAL: Dense breasts. Digital breast tomosynthesis was performed in addition to routine CC and MLO views. Current mammographic images were evaluated by either a Pycno M-Vu or a Brevity ImageChecker CAD (computer aided detection system). Comparison is made to exams dated 06/19/2017 mammogram, 04/26/2016 mammogram, and 03/10/2015 mammogram - [facility]. The tissue of both breasts [...] 04/26/2016 mammogram, and 03/10/2015 mammogram - [facility]. Real-time ultrasound of both breasts [...] 13:33:04 copy to: Jasmina Porras M.D., ph: [phone], fax: [phone] Technologist: Khushbu Chatman , [facility]- letter sent: BIRADS 1-2 Combo FU Letter Mammogram BI-RADS: 0 Indeterminate Ultrasound BI-RADS: 2 BenignDIAG MAMM BILATERAL CIRO CAD [id number] 13:33:04 - DIAG MAMM BILATERAL CIRO CAD DIGITALBILATERAL DIGITAL DIAGNOSTIC MAMMOGRAM 3D/2D WITH CAD: 06/18/2018CLINICAL: Dense breasts. Digital breast tomosynthesis was performed in addition to routine CC and MLO views. Current mammographic images were evaluated by either a Pycno M-Vu or a Brevity ImagePayStandcker CAD (computer aided detection system). Comparison is made to exams dated 06/19/2017 mammogram, 04/26/2016 mammogram, and [facility] The tissue of both breasts is heterogeneously [...] 04/26/2016 mammogram, and [facility] Real-time ultrasound of both breasts and both [...] 13:33:04 copy to: Jasmina Porras M.D., ph: [phone], fax: [phone] Technologist: Khushbu Chatman , [facility]letter sent: BIRADS 1-2 Combo FU [...] NORMAL (1.5-3 um) NORMAL COMPREHENSIVE METABOLIC MARIN 2016-09-23 06:29:00* Test Item Value Reference Range Interpretation [...] 8.2 mg/dL 8.3-9.5 L CBC (INCLUDES AUTOMATED DIFFERENTIAL)*[id number] 05:17:00* Test Item Value Reference Range Interpretation [...] WRBCMOR) NORMAL C-ARM>1HR W IMAGES2016-09-20 13:46:01FluoroscopyLocation Code: [id number] HISTORY: Achilles tendon pathologyComments: Fluoroscopy was provided [...] 09D) 9.5 mg/dL 8.3-9.5 CHEST 2 VIEWS [place] [address] Patient Name: CLARI WALTON MR #: [id number] : 1945 Age/Sex: 72/F Req #: [id number] Adm Physician: Ordered by: ROXANE PALACIO MD Report #: [id number] Location: OR Room/Bed: Procedure: [id number] DX/CHEST 2 VIEWS Exam Date: 08/08/17 Exam [...] upper thoracic spine IMPRESSION: 1. No ac julia cardiopulmonary abnormalities. Daniel Alonzo M.D. Dictat ed by: Daniel Alonzo M.D. on 08/08/2017 at 15:22 Electronically appr alla by: Daniel Alonzo M.D. on 08/08/2017 at 15:22 Dictat ed By: DANIEL ALONZO MD 1522 COPY TO: ROXANE PALACIO MD PELVIC (NON OB) WORKMAN OR F/U [place] [address] Patient Name: CLARI WALTON MR #: [id number] : 1945 Age/Sex: 71/F Req #: [id number] Adm Physician: REYNOLD MAK MD Ordered by: REYNOLD MAK MD Report #: [id number] Location: MED/SURG Room[facility]Bed: [facility] Procedure: [id number] US/US PELVIC (NON OB) WORKMAN OR F/U [...] MD HAND BILATERAL 3 OR MORE VIEWS [place] [address] Patient Name: CLARI WALTON MR #: [id number] : 1945 Age/Sex: 71/F Req #: [id number] Adm Physician: REYNOLD MCKENZIE MD Ordered by: REYNOLD MAK MD Report #: [id number] Location : MED/SURG Room/Bed: [facility] Procedure: [id number] DX/STARR ND BILATERAL 3 OR MORE VIEWS [...] TO: REYNOLD MAK MD SHOULDER COMPLETE BILATERAL [place] [address] Patient Name: CLARI WALTON MR #: [id number] : 1945 Age/Sex: 71/F Req #: [id number] Adm Physician: REYNOLD MAK MD Ordered by: REYNOLD MAK MD Report #: [id number] Location: MED/SURG Room/Bed: [facility] Procedure: [id number] DX/ OULD COMPLETE BILATERAL Exam Date: 04/10/17 Exam T [...] TO: GIANCARLO MAK MD CT ABDOMEN/PELVIS W [place] [address] Patient Name: CLARI WALTON MR #: [id number] : 1945 Age/Sex: 71/F Req #: [id number] Adm Physician: Ordered by: SHERIE SIGALA MD Report #: [id number] Location: ER Room/Bed: Procedure: [id number] CT/CT ABDOMEN/PELVIS W [place] xa Date: 03/30/17 Exam Time: 2157 REPORT [...]
[2020-02-07 15:07] LABS: CREATINE KINASE MB 2.9 ng/mL (0-5.0)
[2020-02-07] MEDS ORDERED: POTASSIUM CHLORIDE 20 MEQ TAB CR PO ONE (17:00)
[2020-02-07 17:25] VITALS: BP 173/52
[2020-02-07] MEDS ORDERED: BIOTIN1000 MCG PO (17:33)
[2020-02-07] MEDS ORDERED: CETIRIZINE HCL10 MG PO (17:33)
[2020-02-07] MEDS ORDERED: CENTRUM SILVER1 EAC3 PO (17:33)
[2020-02-07] MEDS ORDERED: ONDANSETRON HCL4 MG PO (17:33)
[2020-02-07] MEDS ORDERED: CALCIUM500 MG PO (17:33)
[2020-02-07] MEDS ORDERED: VOLTAREN100 GM TOP (17:33)
[2020-02-07] MEDS ORDERED: GABAPENTIN600 MG PO (17:33)
[2020-02-07 17:34] VITALS: BP 173/52
[2020-02-07] MEDS ORDERED: DICYCLOMINE HCL 20 MG TAB PO SCH (18:15)
[2020-02-07] MEDS ORDERED: TIZANIDINE HCL 4 MG TAB PO PRN (18:15)
[2020-02-07 20:00] VITALS: BP 171/63
[2020-02-07] MEDS ORDERED: NAPROSYN500 MG PO (20:16)
[2020-02-07 21:00] VITALS: BP 171/63
[2020-02-07] MEDS ORDERED: ACETAMINOPHEN 325 MG TAB PO PRN (21:00)
[2020-02-07] MEDS ORDERED: DICYCLOMINE HCL 20 MG TAB PO PRN (21:00)
[2020-02-08] VITALS (7 sets, daily range): BP systolic 123–173; BP diastolic 52–80
--- NOTE | 2020-02-08 00:04 | NUR ---
PT HAS REQUESTED HER ZANAFLEX. PT STATES SHE TAKES TWO ZANAFLEX 4 MG TABLETS EVERY NIGHT TO HELP WITH SLEEP. INFORMED PT THAT ONLY ONE ZANAFLEX TABLET IS ORDERED TID. PT REFUSED AND STATED SHE NEEDS TWO. SPOKE WITH LUIS MIGUEL THOMAS NP VIA PHONE. INFORMED OF PT'S REQUEST. NEW ORDERS RECEIVED FOR ZANAFLEX 6 MG PO X 1 DOSE.
[2020-02-08] MEDS ORDERED: TIZANIDINE HCL 4 MG TAB PO ONE (00:15)
[2020-02-08 01:26] LABS: CREATINE KINASE MB 2.6 ng/mL (0-5.0)
[2020-02-08] MEDS: LEVOTHYROXINE SODIUM 50 MCG TAB PO SCH (06:14)
--- NOTE | 2020-02-08 06:50 | NUR ---
Received shift report from acoustical installer nurse. Pt is in bed resting, bedside table and call light is in reach, side rails up x2. will continue to monitor pt.
[2020-02-08 06:58] LABS: BASOPHILS # (AUTO) 0.1 (0.0-0.1); BASOPHILS % 1.7 % (0.0-1.0); EOSINOPHILS % 0.1 % (0.0-6.0); HEMATOCRIT 30.9 % (34.2-44.1); HEMOGLOBIN 10.6 g/dL (12.0-16.0); LYMPHOCYTES # (AUTO) 1.5 (1.0-3.2); LYMPHOCYTES % 21.1 % (18.0-39.1); MEAN CORPUSCULAR HEMOGLOBIN 29.7 pg (28-32); MEAN CORPUSCULAR HGB CONC 34.3 g/dL (31-35); MEAN CORPUSCULAR VOLUME 86.6 fL (81-99); MONOCYTES # (AUTO) 0.8 (0.2-0.8); NEUTROPHILS # (AUTO) 4.6 (2.1-6.9); NEUTROPHILS % 64.3 % (38.7-80.0); PLATELET COUNT 412 x10e3/uL (140-360); RED BLOOD COUNT 3.57 x10e6/uL (3.6-5.1); RED CELL DISTRIBUTION WIDTH 12.6 % (11.7-14.4)
[2020-02-08 07:16] LABS: ALANINE AMINOTRANSFERASE 21 IU/L (0-55); ALBUMIN/GLOBULIN RATIO 1.7 (0.8-2.0); ALKALINE PHOSPHATASE 83 IU/L (40-150); ANION GAP 13.9 mmol/L (8-16); BLOOD UREA NITROGEN 10 mg/dL (7-26); BUN/CREATININE RATIO 15 (6-25); CALCIUM 8.6 mg/dL (8.4-10.2); CARBON DIOXIDE 23 mmol/L (22-29); CHLORIDE 86 mmol/L (98-107); CREATININE, SERUM 0.67 mg/dL (0.57-1.11); EST GLOMERULAR FILTRATION RATE > 60 ML/MIN (60-); GLUCOSE 89 mg/dL (74-118); POTASSIUM 3.9 mmol/L (3.5-5.1)
[2020-02-08 07:48] LABS: SODIUM 119 mmol/L (136-145)
--- NOTE | 2020-02-08 07:53 | NUR ---
LAB CALLED WITH CRITICAL NA LEVEL OF 119. CALLED DR. SIMON TO NOTIFY. SPOKE TO BALAJI BOLANOS NEW ORDERS RECEIVED.
[2020-02-08] MEDS ORDERED: SODIUM CHLORIDE 0.9% 1000ML 1,000 ML IV SCH (08:00)
[2020-02-08 08:11] LABS: CREATINE KINASE MB 4.3 ng/mL (0-5.0)
[2020-02-08] MEDS: HYDROXYCHLOROQUINE SULFATE 200 MG TAB PO SCH ×2 (09:49→16:16)
[2020-02-08] MEDS: PAROXETINE HCL 20 MG TAB PO SCH (09:49)
[2020-02-08] MEDS: ATORVASTATIN 20 MG TAB PO SCH (09:49)
[2020-02-08] MEDS: PANTOPRAZOLE SOD 40 MG TABEC PO SCH ×2 (09:50→16:16)
[2020-02-08] MEDS: CEFTRIAXONE SOD 1 GM/NS 50 ML 50 ML IV SCH ×2 (09:58→19:58)
[2020-02-08] MEDS: HYDRALAZINE HCL 20 MG/ML VIAL IV PRN (12:42)
--- NOTE | 2020-02-08 13:55 | NUR ---
PATIENT C/O OF BACK PAIN, PATIENT STATES SHE CAN'T HAVE TYLENOL, ONLY TYLENOL MAR. PAGED DR. SIMON FOR ORDERS.
[2020-02-08] MEDS: HYDROCODONE/APAP 7.5MG-325MG 1 EA TAB PO PRN ×2 (15:05→19:59)
[2020-02-08] MEDS ORDERED: GUAIFENESIN/DEXTROMETHORPHAN LIQD 5 ML UDC NG PRN (15:30)
[2020-02-08] MEDS ORDERED: GABAPENTIN 300 MG CAP PO SCH (15:30)
[2020-02-08] MEDS ORDERED: SODIUM CHLORIDE 3% 500 ML IV ONE (15:45)
[2020-02-08] MEDS: AMLODIPINE BESYLATE 10 MG TAB PO SCH (16:14)
[2020-02-08] MEDS: NAPROXEN 250 MG TAB PO SCH (16:16)
--- NOTE | 2020-02-08 19:01 | NUR ---
REPORT GIVEN TO HOT CELL TECHNICIAN NURSE. PT IS STABLE, RESTING IN THE CHAIR, NO COMPLAINTS.
[2020-02-09] VITALS (8 sets, daily range): BP systolic 150–178; BP diastolic 59–73
[2020-02-09] MEDS: HYDROCODONE/APAP 7.5MG-325MG 1 EA TAB PO PRN ×5 (00:35→22:36)
[2020-02-09] MEDS: LEVOTHYROXINE SODIUM 50 MCG TAB PO SCH (05:09)
[2020-02-09 06:28] LABS: BASOPHILS # (AUTO) 0.1 (0.0-0.1); BASOPHILS % 1.4 % (0.0-1.0); HEMATOCRIT 28.3 % (34.2-44.1); HEMOGLOBIN 10.2 g/dL (12.0-16.0); LYMPHOCYTES # (AUTO) 1.7 (1.0-3.2); LYMPHOCYTES % 24.2 % (18.0-39.1); MEAN CORPUSCULAR HEMOGLOBIN 31.4 pg (28-32); MEAN CORPUSCULAR VOLUME 87.1 fL (81-99); MONOCYTES # (AUTO) 0.7 (0.2-0.8); MONOCYTES % 10.6 % (4.4-11.3); NEUTROPHILS # (AUTO) 4.3 (2.1-6.9); NEUTROPHILS % 61.4 % (38.7-80.0); PLATELET COUNT 382 x10e3/uL (140-360); RED BLOOD COUNT 3.25 x10e6/uL (3.6-5.1); RED CELL DISTRIBUTION WIDTH 12.6 % (11.7-14.4)
--- NOTE | 2020-02-09 06:42 | NUR ---
RECEIVED BEDSIDE SHIFT REPORT FROM OFF GOING NURSE. PATIENT IS RESTING IN BED, NO ACUTE DISTRESS NOTED. CALL LIGHT WITHIN REACH. BED IN THE LOWEST POSITION. BED ALARM ON.
[2020-02-09 06:47] LABS: BLOOD UREA NITROGEN 9 mg/dL (7-26); BUN/CREATININE RATIO 13 (6-25); CALCIUM 8.6 mg/dL (8.4-10.2); CARBON DIOXIDE 22 mmol/L (22-29); CHLORIDE 88 mmol/L (98-107); EST GLOMERULAR FILTRATION RATE > 60 ML/MIN (60-); GLUCOSE 95 mg/dL (74-118); SODIUM 123 mmol/L (136-145)
[2020-02-09] MEDS: CEFTRIAXONE SOD 1 GM/NS 50 ML 50 ML IV SCH ×2 (09:11→21:32)
[2020-02-09] MEDS: NAPROXEN 250 MG TAB PO SCH ×2 (09:11→17:09)
[2020-02-09] MEDS: ATORVASTATIN 20 MG TAB PO SCH (09:11)
[2020-02-09] MEDS: PAROXETINE HCL 20 MG TAB PO SCH (09:13)
[2020-02-09] MEDS: AMLODIPINE BESYLATE 10 MG TAB PO SCH (09:13)
[2020-02-09] MEDS: PANTOPRAZOLE SOD 40 MG TABEC PO SCH ×2 (09:13→17:09)
[2020-02-09] MEDS: HYDROXYCHLOROQUINE SULFATE 200 MG TAB PO SCH ×2 (09:13→17:09)
[2020-02-09] MEDS ORDERED: SODIUM CHLORIDE 3% 500 ML IV ONE (15:00)
[2020-02-09] MEDS: POTASSIUM CHLORIDE 20 MEQ TAB CR PO SCH ×2 (15:25→18:00)
--- NOTE | 2020-02-09 15:30 | NUR ---
IV LINE LEAKING, DCD WITH TIP INTACT, DRESSING APPLIED TO SITE. CHARGE NURSE UNABLE TO START IV LINE AT THIS TIME. WILL GET ANOTHER NURSE TO ATTEMPT WITH US MACHINE.
[2020-02-09] MEDS: HYDRALAZINE HCL 20 MG/ML VIAL IV PRN (17:10)
[2020-02-09] MEDS: SUMATRIPTAN SUCCINATE 25 MG TAB PO PRN (18:02)
[2020-02-09] MEDS: ONDANSETRON HCL INJ 2MG/ML 2ML 2 MG/ML VIAL IV PRN (18:02)
--- NOTE | 2020-02-09 19:00 | NUR ---
Resumed care of patient. Patient awake and sitting in recliner at bedside, no s/s of distress at this time. Call light placed within reach, patient instructed to call for assistance if needed, verbalized understanding. All safety measures in place.
--- NOTE | 2020-02-09 19:17 | NUR ---
BEDSIDE SHIFT REPORT GIVEN TO ONCOMING NURSE. PATIENT IS RESTING IN RECLINER, NO ACUTE DISTRESS NOTED. CALL LIGHT WITHIN REACH. BED IN THE LOWEST POSITION.
[2020-02-09] MEDS: GABAPENTIN 300 MG CAP PO SCH (21:32)
[2020-02-10] VITALS (8 sets, daily range): BP systolic 117–163; BP diastolic 52–73
[2020-02-10] MEDS: LEVOTHYROXINE SODIUM 50 MCG TAB PO SCH (05:58)
[2020-02-10] MEDS: HYDROCODONE/APAP 7.5MG-325MG 1 EA TAB PO PRN ×3 (05:59→21:20)
[2020-02-10] MEDS: HYDRALAZINE HCL 20 MG/ML VIAL IV PRN (05:59)
[2020-02-10 06:39] LABS: BASOPHILS # (AUTO) 0.1 (0.0-0.1); BASOPHILS % 1.5 % (0.0-1.0); HEMATOCRIT 31.8 % (34.2-44.1); LYMPHOCYTES # (AUTO) 1.3 (1.0-3.2); LYMPHOCYTES % 18.5 % (18.0-39.1); MEAN CORPUSCULAR HEMOGLOBIN 30.1 pg (28-32); MEAN CORPUSCULAR HGB CONC 34.6 g/dL (31-35); MEAN CORPUSCULAR VOLUME 87.1 fL (81-99); MONOCYTES # (AUTO) 0.7 (0.2-0.8); MONOCYTES % 10.2 % (4.4-11.3); NEUTROPHILS % 68.4 % (38.7-80.0); PLATELET COUNT 442 x10e3/uL (140-360); RED BLOOD COUNT 3.65 x10e6/uL (3.6-5.1); RED CELL DISTRIBUTION WIDTH 12.8 % (11.7-14.4)
[2020-02-10] MEDS ORDERED: NORVASC10 MG PO (06:48)
[2020-02-10] MEDS ORDERED: CEFTIN PO (06:48)
[2020-02-10 06:52] LABS: ANION GAP 14.5 mmol/L (8-16); BLOOD UREA NITROGEN 9 mg/dL (7-26); BUN/CREATININE RATIO 14 (6-25); CALCIUM 9.1 mg/dL (8.4-10.2); CARBON DIOXIDE 23 mmol/L (22-29); CHLORIDE 94 mmol/L (98-107); CREATININE, SERUM 0.66 mg/dL (0.57-1.11); EST GLOMERULAR FILTRATION RATE > 60 ML/MIN (60-); GLUCOSE 113 mg/dL (74-118); POTASSIUM 3.5 mmol/L (3.5-5.1); SODIUM 128 mmol/L (136-145)
[2020-02-10] MEDS: PAROXETINE HCL 20 MG TAB PO SCH (08:31)
[2020-02-10] MEDS: AMLODIPINE BESYLATE 10 MG TAB PO SCH (08:31)
[2020-02-10] MEDS: CEFTRIAXONE SOD 1 GM/NS 50 ML 50 ML IV SCH ×2 (08:31→20:15)
[2020-02-10] MEDS: ATORVASTATIN 20 MG TAB PO SCH (08:31)
[2020-02-10] MEDS: PANTOPRAZOLE SOD 40 MG TABEC PO SCH ×2 (08:31→16:40)
[2020-02-10] MEDS: NAPROXEN 250 MG TAB PO SCH ×2 (08:31→16:40)
[2020-02-10] MEDS: HYDROXYCHLOROQUINE SULFATE 200 MG TAB PO SCH ×2 (08:31→16:40)
[2020-02-10] MEDS ORDERED: SODIUM CHLORIDE 3% 500 ML IV ONE (10:30)
[2020-02-10] MEDS: SUMATRIPTAN SUCCINATE 25 MG TAB PO PRN (12:49)
--- NOTE | 2020-02-10 15:06 | NUR ---
pt notified nurse that she has not voided for several hours but feel the urge to void. pt stated that whenever she tries to void it is painful. performed bladder scan and it showed 330 mL in the bladder. will inform nurse practitioner
[2020-02-10] MEDS: GABAPENTIN 300 MG CAP PO SCH (20:15)
[2020-02-11] VITALS (8 sets, daily range): BP systolic 149–169; BP diastolic 60–70
--- NOTE | 2020-02-11 02:27 | Consultation ---
DATE OF CONSULTATION: 02/10/2020 Nephrology Consultation REASON FOR CONSULTATION: Hyponatremia. HISTORY OF PRESENT ILLNESS: A 74-year-old female with multiple comorbidities, hypertension, UTIs in the past, anxiety, hyperlipidemia, came into the ED with complaints of generalized weakness and fatigue. She called her PCP, found to have a low sodium level, told to go to the ER for further evaluation and management. The patient was on a distal diuretic, chlorthalidone. She denies any chest pain, palpitation, nausea, vomiting. Nephrology was consulted for hyponatremia. The patient was seen and evaluated at bedside on the medical floor. She is currently doing well with no other issues at this time. REVIEW OF SYSTEMS: Pertinent positives: Generalized weakness, fatigue, low energy. The rest of 14-point review of systems have been reviewed with the patient and are negative. ALLERGIES: TO LATEX, RUBBER, AMOXICILLIN, CLAVULANIC ACID, FLU VACCINE, LEVAQUIN, NITROFURANTOIN. HOME MEDICATIONS: 1. Albuterol. 2. Acyclovir. 3. Calcium. 4. Cetirizine. 5. Ranitidine. 6. Atorvastatin. 7. Dicyclomine. 8. Gabapentin. 9. Hydroxychloroquine. 10. Levothyroxine. 11. Naproxen. 12. Protonix. 13. Paroxetine. 14. Simvastatin. 15. Tizanidine. PAST MEDICAL HISTORY: Hyperlipidemia, peripheral neuropathy, hypothyroidism, anemia, hyperlipidemia, chronic back pain, history of rheumatoid arthritis. PAST SURGICAL HISTORY: Knee replacement, back surgery, orthopedic implants. PAST FAMILY HISTORY: Hypertension and diabetes. SOCIAL HISTORY: No drugs or alcohol. Does not smoke. Good social support. LABORATORY DATA: Show white count 7.2, hemoglobin 11, hematocrit 32, platelets of 442. Chemistry, sodium on admission was 190, now 127 appropriately corrected, potassium 3.5, chloride 94, bicarb 23, anion gap of 14. BUN is 9, creatinine 0.66, calcium is 9.1, glucose is 113. Coagulation normal. Urinalysis consistent for possible UTI. Coronavirus not detected. MICROBIOLOGY: Urine culture shows Escherichia coli. IMAGING STUDIES: Chest x-ray negative. PHYSICAL EXAMINATION: VITAL SIGNS: Temperature is 98.6, pulse 74, respiratory rate is 18, blood pressure is 117/52, pulse ox 96% on room air. GENERAL: No acute distress. Alert and oriented x3. Cooperative on examination. HEENT: Head is normocephalic and atraumatic. Eyes; pupils are equal, round, and reactive to light bilaterally. Extraocular movements are intact bilaterally. Throat, no evidence of any erythema or exudates in the posterior pharynx. Has poor dentition. NECK: Supple. Good range of motion. PULMONARY: Clear to auscultation bilaterally. No wheezing, no rales, no rhonchi, no crackles appreciated. CARDIOVASCULAR: Positive S1, S2. No murmurs, rubs, or gallops appreciated. GI: Abdomen is soft, nondistended, nontender to palpation. Bowel sounds present. MUSCULOSKELETAL: Strength 5/5 throughout. No evidence of any muscle deficits on examination. No weakness appreciated. NEUROLOGIC: Cranial nerves 2 through 12 are grossly intact. No evidence of any neurological deficits on exam. SKIN: Intact. Warm to touch. Good cap refill. PSYCHIATRIC: Normal affect and mood. EXTREMITIES: No edema. Good range of motion throughout. IMPRESSION: Hypovolemic hypotonic hyponatremia, all secondary to chlorthalidone, distal diuretic. PLAN: At this time, the patient was on hypertonic 3% that was provided by her primary team. Her sodium now is 127. We will go ahead and discontinue hypertonic 3% saline. Repeat labs in the morning. Encourage volume restriction. Avoid hydrochlorothiazide or any distal thiazide diuretics. I discussed plan of care with the primary team, which they verbalized understanding. A stat sodium level performed today was 127, which I talked already with the nursing staff. We will just monitor her very closely. No further workup at this current moment. If the sodium is lower in the morning, we will consider adding some saline or other measures. MD MARGARITA Rosario/MODL /[id number]
[2020-02-11] MEDS: LEVOTHYROXINE SODIUM 50 MCG TAB PO SCH (05:00)
[2020-02-11 06:32] LABS: BASOPHILS # (AUTO) 0.1 (0.0-0.1); BASOPHILS % 1.8 % (0.0-1.0); HEMATOCRIT 31.4 % (34.2-44.1); HEMOGLOBIN 10.8 g/dL (12.0-16.0); LYMPHOCYTES # (AUTO) 1.7 (1.0-3.2); LYMPHOCYTES % 24.2 % (18.0-39.1); MEAN CORPUSCULAR HEMOGLOBIN 30.7 pg (28-32); MEAN CORPUSCULAR HGB CONC 34.4 g/dL (31-35); MEAN CORPUSCULAR VOLUME 89.2 fL (81-99); MONOCYTES # (AUTO) 0.7 (0.2-0.8); MONOCYTES % 10.2 % (4.4-11.3); NEUTROPHILS # (AUTO) 4.3 (2.1-6.9); NEUTROPHILS % 60.7 % (38.7-80.0); PLATELET COUNT 425 x10e3/uL (140-360); RED BLOOD COUNT 3.52 x10e6/uL (3.6-5.1); RED CELL DISTRIBUTION WIDTH 13.2 % (11.7-14.4)
[2020-02-11 06:53] LABS: ALANINE AMINOTRANSFERASE 16 IU/L (0-55); ALBUMIN 3.8 g/dL (3.5-5.0); ALBUMIN/GLOBULIN RATIO 1.7 (0.8-2.0); ALKALINE PHOSPHATASE 81 IU/L (40-150); ANION GAP 15.5 mmol/L (8-16); BLOOD UREA NITROGEN 11 mg/dL (7-26); BUN/CREATININE RATIO 17 (6-25); CALCIUM 8.4 mg/dL (8.4-10.2); CARBON DIOXIDE 20 mmol/L (22-29); CHLORIDE 93 mmol/L (98-107); CREATININE, SERUM 0.66 mg/dL (0.57-1.11); EST GLOMERULAR FILTRATION RATE > 60 ML/MIN (60-); GLUCOSE 89 mg/dL (74-118); MAGNESIUM 1.7 MG/DL (1.3-2.1); POTASSIUM 3.5 mmol/L (3.5-5.1); SODIUM 125 mmol/L (136-145)
[2020-02-11] MEDS: HYDROCODONE/APAP 7.5MG-325MG 1 EA TAB PO PRN ×3 (07:02→21:16)
--- NOTE | 2020-02-11 07:02 | NUR ---
REPORT GIVEN TO DAYSHIFT NURSE. ALERT AND RESTING IN BED. NO SIGNS IV INFILTRATION. BED LOCKED AND IN LOW POSITION. CALL LIGHT WITHIN REACH. BED ALARM ACTIVATED.
[2020-02-11] MEDS: NAPROXEN 250 MG TAB PO SCH ×2 (08:29→17:05)
[2020-02-11] MEDS: HYDROXYCHLOROQUINE SULFATE 200 MG TAB PO SCH ×2 (08:29→17:05)
[2020-02-11] MEDS: AMLODIPINE BESYLATE 10 MG TAB PO SCH (08:29)
[2020-02-11] MEDS: ATORVASTATIN 20 MG TAB PO SCH (08:29)
[2020-02-11] MEDS: PANTOPRAZOLE SOD 40 MG TABEC PO SCH ×2 (08:29→17:05)
[2020-02-11] MEDS: PAROXETINE HCL 20 MG TAB PO SCH (08:29)
[2020-02-11] MEDS ORDERED: SODIUM CHLORIDE 0.9% 250ML 250 ML ONE (08:38)
[2020-02-11] MEDS: CEFTRIAXONE SOD 1 GM/NS 50 ML 50 ML IV SCH ×2 (09:15→21:07)
[2020-02-11] MEDS: HYDRALAZINE HCL 20 MG/ML VIAL IV PRN ×2 (11:55→17:05)
[2020-02-11] MEDS: SUMATRIPTAN SUCCINATE 25 MG TAB PO PRN (12:41)
[2020-02-11] MEDS: ONDANSETRON HCL INJ 2MG/ML 2ML 2 MG/ML VIAL IV PRN ×2 (12:41→21:07)
[2020-02-11] MEDS: SODIUM CHLORIDE 1 GM TAB PO SCH ×2 (15:08→17:05)
--- NOTE | 2020-02-11 19:15 | NUR ---
report given to pm nurse.
[2020-02-11] MEDS: GABAPENTIN 300 MG CAP PO SCH (20:20)
--- NOTE | 2020-02-11 20:20 | NUR ---
PATIENT C/O BURNING PAIN UPON FLUSH TO IV. D/C IV TO R WRIST CATHETER TIP INTACT. CDI DRESSING PLACED. STAFF NURSE START NEW IV TO L WRIST. SALINE FLUSH. CDI DRESSING. TOLERATED WELL.
[2020-02-12 00:45] VITALS: BP 138/67
--- NOTE | 2020-02-12 02:07 | Progress Note ---
DATE: 02/11/2020 Nephrology Progress Note SUBJECTIVE: The patient doing well today with no complaints. PHYSICAL EXAMINATION: VITAL SIGNS: Afebrile, normotensive, respiratory rate is good. GENERAL: No acute distress. Alert and oriented x3. Cooperative on examination. HEENT: Head is normocephalic and atraumatic. Eyes; pupils are equal, round, and reactive to light bilaterally. PULMONARY: Clear to auscultation bilaterally. No wheezing, rales, or rhonchi. No crackles appreciated. CARDIOVASCULAR: Positive S1 and S2. No murmurs, rubs, or gallops appreciated. ABDOMEN: Soft, nondistended, nontender to palpation. Bowel sounds present. MUSCULOSKELETAL: Strength is 5/5 throughout. LABORATORY DATA: Labs show white count 7, hemoglobin 10, hematocrit is 31, and platelets of 425. Chemistries reviewed; sodium was 125, potassium 3.5, chloride 93, bicarb 20, anion gap of 15, BUN is 11, creatinine is 0.66. MICROBIOLOGY: Urine cultures noted. IMAGING STUDIES: None. IMPRESSION: Hypovolemic hypotonic hyponatremia secondary to chlorthalidone and distal diuretic. PLAN: At this time, sodium is 125. Fluids were discontinued. Start on sodium chloride tablets 2 g p.o. b.i.d. x2 doses. Repeat labs in the morning and determine if she needs more further salt intake. Volume restriction at 1.2 L in a given day. MD MARGARITA Rosario/KARIN /[id number]
[2020-02-12 04:49] VITALS: BP 151/67
[2020-02-12] MEDS: LEVOTHYROXINE SODIUM 50 MCG TAB PO SCH (05:05)
[2020-02-12 06:26] LABS: BASOPHILS # (AUTO) 0.1 (0.0-0.1); BASOPHILS % 1.6 % (0.0-1.0); HEMATOCRIT 32.3 % (34.2-44.1); HEMOGLOBIN 10.9 g/dL (12.0-16.0); LYMPHOCYTES # (AUTO) 1.5 (1.0-3.2); LYMPHOCYTES % 21.5 % (18.0-39.1); MEAN CORPUSCULAR HEMOGLOBIN 29.4 pg (28-32); MEAN CORPUSCULAR HGB CONC 33.7 g/dL (31-35); MEAN CORPUSCULAR VOLUME 87.1 fL (81-99); MONOCYTES # (AUTO) 0.8 (0.2-0.8); MONOCYTES % 11.3 % (4.4-11.3); NEUTROPHILS # (AUTO) 4.4 (2.1-6.9); NEUTROPHILS % 62.5 % (38.7-80.0); PLATELET COUNT 406 x10e3/uL (140-360); RED BLOOD COUNT 3.71 x10e6/uL (3.6-5.1)
[2020-02-12 06:45] LABS: ALANINE AMINOTRANSFERASE 17 IU/L (0-55); ALBUMIN 3.8 g/dL (3.5-5.0); ALBUMIN/GLOBULIN RATIO 1.6 (0.8-2.0); ALKALINE PHOSPHATASE 74 IU/L (40-150); ANION GAP 16.4 mmol/L (8-16); BLOOD UREA NITROGEN 9 mg/dL (7-26); BUN/CREATININE RATIO 15 (6-25); CALCIUM 8.6 mg/dL (8.4-10.2); CARBON DIOXIDE 21 mmol/L (22-29); CHLORIDE 91 mmol/L (98-107); CREATININE, SERUM 0.62 mg/dL (0.57-1.11); EST GLOMERULAR FILTRATION RATE > 60 ML/MIN (60-); GLUCOSE 86 mg/dL (74-118); POTASSIUM 3.4 mmol/L (3.5-5.1); SODIUM 125 mmol/L (136-145)
[2020-02-12 07:30] VITALS: BP 158/66
--- NOTE | 2020-02-12 07:30 | NUR ---
PATIENT IN BED RESTING WITH HEAD OF BED ELEVATED, NO DISTRESS NOTED. SCD TO LOWER EXTREMITIES. BED IN LOWER POSITION, CALL LIGHT AT REACH.
[2020-02-12 08:00] VITALS: BP 158/66
[2020-02-12] MEDS: HYDROXYCHLOROQUINE SULFATE 200 MG TAB PO SCH ×2 (09:00→17:09)
[2020-02-12] MEDS: CEFTRIAXONE SOD 1 GM/NS 50 ML 50 ML IV SCH (09:00)
[2020-02-12] MEDS: PAROXETINE HCL 20 MG TAB PO SCH (09:00)
[2020-02-12] MEDS: ATORVASTATIN 20 MG TAB PO SCH (09:00)
[2020-02-12] MEDS: NAPROXEN 250 MG TAB PO SCH ×2 (09:00→17:09)
[2020-02-12] MEDS: PANTOPRAZOLE SOD 40 MG TABEC PO SCH ×2 (09:00→17:09)
[2020-02-12] MEDS ORDERED: CEFTIN PO (09:38)
[2020-02-12] MEDS ORDERED: NIFEDIPINE ER30 M1 PO (09:38)
[2020-02-12] MEDS ORDERED: POTASSIUM CHLORIDE 20 MEQ TAB CR PO ONE (10:15)
[2020-02-12] MEDS ORDERED: SODIUM CHLORIDE 1 GM TAB PO ONE ×2 (11:00→15:30)
[2020-02-12] MEDS ORDERED: FUROSEMIDE INJ 10 MG/ML 2 ML VIAL IV ONE (11:00)
--- NOTE | 2020-02-12 11:17 | NUR ---
SPOKE WITH MD REGARDING ABNORMAL LAB RESULT, NEW ORDER RECEIVED.
[2020-02-12] MEDS: HYDROCODONE/APAP 7.5MG-325MG 1 EA TAB PO PRN (11:30)
[2020-02-12 12:45] VITALS: BP 150/58
--- NOTE | 2020-02-12 15:50 | NUR ---
MD IN TO SEE PATIENT, NEW ORDER RECEIVED AND IMPLEMENTED.
[2020-02-12 16:00] VITALS: BP 153/63
[2020-02-12] MEDS ORDERED: NIFEDIPINE CR 30 MG TAB PO SCH (17:00)
--- NOTE | 2020-02-12 18:06 | NUR ---
SODIUM LEVEL AT 129. DR GRIJALVA NOTIFIED. OK TO DISCHARGE PATIENT.
--- NOTE | 2020-02-12 19:30 | NUR ---
pt discharged to home via w/c, vs wnl, belongings with pt in private car, no distress noted, iv removed, tele box d/cd
--- NOTE | 2020-02-13 02:03 | Progress Note ---
DATE: 02/12/2020 Nephrology Progress Note SUBJECTIVE: The patient is doing well, eager to go home. Early this morning, sodium was 125, but corrected to 129. OBJECTIVE: VITAL SIGNS: She is afebrile, normotensive, respiratory rate is good. GENERAL: Not in acute distress. Alert and oriented x3. PULMONARY: Clear to auscultation bilaterally. No wheezes, rales or rhonchi. No crackles appreciated. CARDIOVASCULAR: Positive S1, S2. No murmurs, rubs, or gallops appreciated. ABDOMEN: Soft, nondistended, and nontender to palpation. Bowel sounds present. MUSCULOSKELETAL: Strength is 5/5 throughout. No evidence of any muscle deficits on examination. SKIN: Intact, warm to touch. Good cap refill. LABORATORY DATA: Show CBC stable. Chemistry reviewed, showed a sodium of 125 this morning, but 129 on discharge with much improved salt replacement. Coronavirus not detected. Microbiology, urine cultures was found to be E coli pansensitive. IMAGING STUDIES: Chest x-ray negative for any acute process. IMPRESSION: Hypovolemic, hypotonic, hyponatremia secondary to chlorthalidone and distal diuretics. PLAN: At this time sodium level improved to 129. She was given some salt restriction. Also, she was given salt tabs for volume restriction and avoidance of diuretics. If her sodium is 129, no further workup is needed. Discussed with the patient about following up with her primary PCP as well as a inspector subassemblies as an outpatient. She verbalized understanding. MD MARGARITA Rosario/KARIN /[id number]
--- NOTE | 2020-02-13 20:48 | Discharge Summary ---
ADMISSION DIAGNOSES: 1. Hyponatremia. 2. Hypokalemia. 3. Urinary tract infection. 4. History of arthritis. DISCHARGE DIAGNOSES: 1. Hyponatremia. 2. Hypokalemia. 3. Urinary tract infection. 4. History of arthritis. 5. Escherichia coli urinary tract infection, present on admission. HISTORY: Hyperlipidemia, OA, hypothyroidism, GERD. SURGICAL HISTORY: None. FAMILY HISTORY: The patient's father had heart disease. SOCIAL HISTORY: Noncontributory. HOSPITAL COURSE: A 74-year-old female, admits with complaints of fatigue and generalized weakness. Her initial workup in the ER showed a sodium of 119 and potassium of 2.7. Her ARB and hydrochlorothiazide were recently stopped by Urgent Care. Then, she was sent to the hospital. Chest x-ray was negative. UA was positive and urine culture came back positive for E. coli. She was started on Rocephin on admission. After getting IV fluid and hypertonic saline solution, the sodium remained normal, so Nephrology was consulted. Sodium slowly trended up over the next couple of days. She was given Lasix and . As she is eager to discharge home, she was advised to continue her home medicines except the hydrochlorothiazide and ARB. She will discharge home with new prescriptions for nifedipine and Ceftin for the urinary tract infection. She will follow up with primary care in 1 to 2 weeks. The patient understands discharge instructions and agrees to plan. Vital signs are stable. The patient is afebrile. Dictated by Almaz Leslie NP MD GAVINO Harris/MODL /[id number]
== END 2020-02-12 19:30 | disposition home or self-care (01) | DRG 690 ==
LOC: ER 09:15 → ERHOLD 11:12 → MED/SURG3 17:06 → OBSVTOIN 02-08 12:45
PROVIDERS: ADMIT Internal Medicine; ATTEND Internal Medicine
DX: N39.0 Urinary tract infection, site not specified (principal); E87.1 Hypo-osmolality and hyponatremia; E87.6 Hypokalemia; T50.2X5A Adverse effect of carbonic-anhydrase inhibitors, benzothiadiazides and other diuretics, initial encounter; I10 Essential (primary) hypertension; D64.9 Anemia, unspecified; F41.9 Anxiety disorder, unspecified; E78.5 Hyperlipidemia, unspecified; E03.9 Hypothyroidism, unspecified; M06.9 Rheumatoid arthritis, unspecified; Z88.7 Allergy status to serum and vaccine; Z88.8 Allergy status to other drugs, medicaments and biological substances; Z88.1 Allergy status to other antibiotic agents; Z82.49 Family history of ischemic heart disease and other diseases of the circulatory system; Z91.040 Latex allergy status; Z87.440 Personal history of urinary (tract) infections; B96.20 Unspecified Escherichia coli [E. coli] as the cause of diseases classified elsewhere; Z11.59 Encounter for screening for other viral diseases
CPT/HCPCS: 36415; 71045; 80048; 80053; 81001; 82550; 82553; 82947; 83735; 83880; 83935; 84295; 84300; 84443; 84484; 84520; 85025; 85610; 85730; 87086; 87186; 93005; 96361; 97139; 99284; G0378; J0360; J0696; J1940; J2405; J7030; J7050; U0002

== ENCOUNTER → 2020-08-07 | Day surgery (SDC) | payer MEDICARE ==
[2020-07-16 15:54] LABS: BASOPHILS # (AUTO) 0.1 (0.0-0.1); BASOPHILS % 1.8 % (0.0-1.0); EOSINOPHILS % 0.1 % (0.0-6.0); HEMATOCRIT 36.1 % (34.2-44.1); HEMOGLOBIN 11.6 g/dL (12.0-16.0); LYMPHOCYTES # (AUTO) 1.5 (1.0-3.2); LYMPHOCYTES % 21.2 % (18.0-39.1); MEAN CORPUSCULAR HEMOGLOBIN 30.1 pg (28-32); MEAN CORPUSCULAR HGB CONC 32.1 g/dL (31-35); MEAN CORPUSCULAR VOLUME 93.5 fL (81-99); MONOCYTES # (AUTO) 0.8 (0.2-0.8); MONOCYTES % 11.2 % (4.4-11.3); NEUTROPHILS # (AUTO) 4.7 (2.1-6.9); PLATELET COUNT 360 x10e3/uL (140-360); RED BLOOD COUNT 3.86 x10e6/uL (3.6-5.1); RED CELL DISTRIBUTION WIDTH 13.7 % (11.7-14.4)
[~2020-08-07] MED LIST changes: +BIOTIN1000 MCG PO; +CALCIUM500 MG PO; +CEFTIN PO; +CENTRUM SILVER1 EAC3 PO; +CETIRIZINE HCL10 MG PO; +GABAPENTIN600 MG PO; +INDERAL LA80 MG PO; +LIDOCAINE HCL 2% LOCAL INJ 5 ML SDV VIAL INJ ONE; +NAPROSYN500 MG PO; +NIFEDIPINE ER30 M1 PO; +NORVASC10 MG PO; +ONDANSETRON HCL4 MG PO; +PROPOFOL IV EMULSION 10 MG/ML 20 ML VIAL ONE; +TOPAMAX50 MG PO; +VOLTAREN100 GM TOP
[2020-08-07 17:00] VITALS: BP 132/76
== END | disposition home or self-care (01) ==
LOC: OR 12:31
PROVIDERS: ATTEND Internal Medicine Gastroenterology
DX: R19.7 Diarrhea, unspecified (principal); Z86.010 Personal history of colon polyps; K58.9 Irritable bowel syndrome, unspecified; K29.70 Gastritis, unspecified, without bleeding; I10 Essential (primary) hypertension; R01.1 Cardiac murmur, unspecified; E78.5 Hyperlipidemia, unspecified; K21.9 Gastro-esophageal reflux disease without esophagitis; R00.1 Bradycardia, unspecified; Z88.0 Allergy status to penicillin; Z88.7 Allergy status to serum and vaccine; Z88.1 Allergy status to other antibiotic agents; Z91.040 Latex allergy status; Z01.810 Encounter for preprocedural cardiovascular examination; Z01.812 Encounter for preprocedural laboratory examination; Z20.822 Contact with and (suspected) exposure to COVID-19; Z98.1 Arthrodesis status
CPT/HCPCS: 36415; 45378; 85025; 93005; J2001; J2704; U0002 ×2

== ENCOUNTER → 2021-03-17 | Day surgery (SDC) | payer MEDICARE ==
[2021-03-15 13:51] LABS: BASOPHILS # (AUTO) 0.1 (0.0-0.1); EOSINOPHILS % 0.1 % (0.0-6.0); HEMATOCRIT 34.3 % (34.2-44.1); HEMOGLOBIN 11.2 g/dL (12.0-16.0); LYMPHOCYTES # (AUTO) 1.1 (1.0-3.2); LYMPHOCYTES % 12.8 % (18.0-39.1); MEAN CORPUSCULAR HEMOGLOBIN 30.9 pg (28-32); MEAN CORPUSCULAR HGB CONC 32.7 g/dL (31-35); MEAN CORPUSCULAR VOLUME 94.8 fL (81-99); MONOCYTES # (AUTO) 1.1 (0.2-0.8); MONOCYTES % 11.9 % (4.4-11.3); NEUTROPHILS # (AUTO) 6.6 (2.1-6.9); NEUTROPHILS % 73.9 % (38.7-80.0); PLATELET COUNT 365 x10e3/uL (140-360); RED BLOOD COUNT 3.62 x10e6/uL (3.6-5.1); RED CELL DISTRIBUTION WIDTH 14.2 % (11.7-14.4)
[~2021-03-17] MED LIST changes: +CRANBERRY250 MG PO; +DEXAMETHASONE SOD PHOS INJ 4 MG/ML SDV ONE; +EPHEDRINE SULFATE INJ 50 MG/ML VIAL ONE; +EPINEPHRINE 1 MG/ML 30ML VIAL ONE; +FAMOTIDINE20 MG PO; +FENTANYL CITRATE/PF 100MCG/2 ML INJ ONE; +FLONASE ALLERG9.9 ML INH; +GLYCOPYRROLATE INJ 0.2 MG/ML VIAL ONE; +LIDOCAINE HCL 2% LOCAL 20 ML VIAL ONE; +MIDAZOLAM HCL 2 MG/2 ML VIAL ONE; +NEOSTIGMINE 1 MG/ML 10ML VIAL ONE; +ONDANSETRON HCL INJ 2MG/ML 2ML 2 MG/ML VIAL ONE; +POVIDONE IODINE 0.05% 0.05 % ML PO ONE; +ROCURONIUM BROMIDE 10 MG/ML 5ML VIAL IV ONE; +ROPIVACAINE 0.5% 5 MG/ML 30 ML SDV ONE; +SEVOFLURANE INHAL SOLN 250 ML PEN BTL ONE; +SODIUM CHLORIDE 0.9% 50ML 100 ML ONE; +VITAMIN D3250 MC1 PO
[2021-03-17 12:05] VITALS: BP 147/68
== END | disposition home or self-care (01) ==
LOC: OR 07:07
PROVIDERS: ATTEND Specialist
DX: M75.111 Incomplete rotator cuff tear or rupture of right shoulder, not specified as traumatic (principal); M19.011 Primary osteoarthritis, right shoulder; M94.211 Chondromalacia, right shoulder; M65.811 Other synovitis and tenosynovitis, right shoulder; I10 Essential (primary) hypertension; R00.1 Bradycardia, unspecified; J44.9 Chronic obstructive pulmonary disease, unspecified; E78.5 Hyperlipidemia, unspecified; R01.1 Cardiac murmur, unspecified; E03.9 Hypothyroidism, unspecified; K21.9 Gastro-esophageal reflux disease without esophagitis; Z88.0 Allergy status to penicillin; Z88.1 Allergy status to other antibiotic agents; Z91.040 Latex allergy status; Z01.810 Encounter for preprocedural cardiovascular examination; Z01.812 Encounter for preprocedural laboratory examination; Z01.818 Encounter for other preprocedural examination; Z20.822 Contact with and (suspected) exposure to COVID-19; Z96.82 Presence of neurostimulator; Z87.891 Personal history of nicotine dependence
CPT/HCPCS: 29824; 29826; 29827; 36415; 71046; 85025; 93005; C1713; J0690; J1100; J2001 ×2; J2250; J2405; J2704; J2710; J2795; J3010; U0002

== ENCOUNTER → 2022-07-01 | Outpatient (CLI) | payer MEDICARE ==
[~2022-07-01] MED LIST changes: -DEXAMETHASONE SOD PHOS INJ 4 MG/ML SDV ONE; -EPHEDRINE SULFATE INJ 50 MG/ML VIAL ONE; -EPINEPHRINE 1 MG/ML 30ML VIAL ONE; -FENTANYL CITRATE/PF 100MCG/2 ML INJ ONE; -GLYCOPYRROLATE INJ 0.2 MG/ML VIAL ONE; -LIDOCAINE HCL 2% LOCAL 20 ML VIAL ONE; -LIDOCAINE HCL 2% LOCAL INJ 5 ML SDV VIAL INJ ONE; -MIDAZOLAM HCL 2 MG/2 ML VIAL ONE; -NEOSTIGMINE 1 MG/ML 10ML VIAL ONE; -ONDANSETRON HCL INJ 2MG/ML 2ML 2 MG/ML VIAL ONE; -POVIDONE IODINE 0.05% 0.05 % ML PO ONE; -PROPOFOL IV EMULSION 10 MG/ML 20 ML VIAL ONE; -ROCURONIUM BROMIDE 10 MG/ML 5ML VIAL IV ONE; -ROPIVACAINE 0.5% 5 MG/ML 30 ML SDV ONE; -SEVOFLURANE INHAL SOLN 250 ML PEN BTL ONE; -SODIUM CHLORIDE 0.9% 50ML 100 ML ONE
== END ==
LOC: RAD 09:29
PROVIDERS: ATTEND Internal Medicine Gastroenterology
DX: K59.09 Other constipation (principal)
CPT/HCPCS: 74018

== ENCOUNTER → 2025-02-19 | Outpatient (REF) | payer MEDICARE ==
[~2025-02-19] MED LIST changes: +HYDROCODON-ACE1 EA11 PO; +IOPAMIDOL 370 MG/ML 100 ML INFUS..BTL INJ ONE; +KETOROLAC TROME10 MG PO
[2025-02-19 14:23] LABS: EST GLOMERULAR FILTRATION RATE 67.0 ML/MIN (>=60)
== END ==
LOC: CT 13:02
PROVIDERS: ATTEND Nurse Practitioner
DX: R10.84 Generalized abdominal pain (principal); K59.09 Other constipation; R14.0 Abdominal distension (gaseous); R11.0 Nausea
CPT/HCPCS: 36415; 74177; 82565; 84520; Q9967